=== PATIENT | female | born 1990 ===

== ENCOUNTER 2023-07-13 10:50 | Emergency (ER) | payer BC, SELFPAY ==
--- NOTE | ~2023-07-13 | XR_ITS ---
EXAMINATION: XR knee LT min 4V DATE: 07/13/2023 11:17 INDICATION: Left knee pain. TECHNIQUE: 4 views of left knee were obtained. COMPARISON: None. FINDINGS: Bone alignment is normal. No fracture. There is mild osteoarthritis of medial and lateral c ompartments characterized by tiny osteophytes. There is a small knee joint effusion. IMPRESSION: 1. Mild left knee osteoarthritis. 2. Small left knee joint effusion. Reviewed, dictated and finalized at location A. [employer]
[2023-07-13 11:03] VITALS: BP 126/86; PULSE 82; RESP 20; TEMP 36.9; O2SAT 100
--- NOTE | 2023-07-13 11:19 | ED.EXTPRO ---
HPI - Extremity Problem General Chief complaint: Extremity Problem,Nontraumatic Stated complaint: L knee pain Time Seen by Provider: 07/13/23 11:18 Source: patient Mode of arrival: ambulatory Limitations: no limitations History of Present Illness HPI Narrative: Patient is a pleasant 32 year old female without significant past medical history presents emergency department today ambulatory with a knee brace on for left knee pain. Patient states that this has been going on for a while now about 3 months that occurred initially when she was exercising and she will have episodes where her knee becomes more swollen. She states that last night her knee went backwards and she has been having increasing pain since. 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 States that it hurts to bear any weight and she cannot completely bend it or extend it due to the pain. Denies any fever chills. Denies numbness or tingling to the left lower extremity. Has been taking Tylenol and ibuprofen. has never seen ortho. Related Data Allergies Allergy/AdvReac Type Severity Reaction Status Date / Time Penicillins Allergy Unknown Anaphylaxis Verified 07/13/23 11:19 RED ONION Allergy Unknown ITCHY Uncoded 07/13/23 11:06 THROAT Review of Systems Review of Systems: CONSTITUTIONAL: Denies fever, chills GENITOURINARY: Denies dysuria or hematuria. SKIN: Denies rash or itching. MUSCULOSKELETAL: left knee pain and swelling. NEUROLOGIC: Denies numbness. All systems reviewed & are unremarkable except as noted in HPI and below PMFSH Social History Social History Smoking status: Former smoker Alcohol intake: never Exam Narrative: GENERAL: Well-appearing, well-nourished, and in no acute distress. HEAD: Normocephalic, atraumatic. CHEST: No respiratory distress. HEART: Regular rate. 2+ left posterior tibial pulse. EXTREMITIES: TTP to right knee over patella, mild swelling noted. no erythema. no signs of knee dislocation/instability.ROM intact however there is pain with ROM. No edema.no calf tenderness. negative Shu's sign. SKIN: Warm, dry, no rash. NEURO: No focal deficits. distal NV intact to LLE. Course Vital Signs Vital signs: Vital Signs Temperature 98.4 F 07/13/23 11:03 Pulse Rate 82 12/31/23 11:03 Respiratory Rate 20 07/13/23 11:03 Blood Pressure 126/86 07/13/23 11:03 Pulse Oximetry 100 07/13/23 11:03 Oxygen Delivery Room Air 07/13/23 11:03 Temperature 98.4 F 07/13/23 11:03 Pulse Rate 82 07/13/23 11:03 Respiratory Rate 20 07/13/23 11:03 Blood Pressure 126/86 07/13/23 11:03 Pulse Oximetry 100 07/13/23 11:03 Oxygen Delivery Room Air 07/13/23 11:03 MDM - Extremity (Nontraumatic) MDM Narrative Medical decision making narrative: Patient presents for left knee pain going on about 3 months since exercising and then having an episode where her knee went backwards last night has been having worsening pain since. X-ray does not show any acute fracture or instability. Small effusion noted and mild osteoarthritis. Discussed use of knee immobilizer, nonweightbearing for a few days as well as crutches and discharge diclofenac with Tylenol as well as orthopedic follow-up. No signs of distal neurovascular compromise. No swelling distal of the knee. Patient is nontoxic in appearance. Stable re-evaluation exam just before discharge. Patient in no acute distress. Vitals within normal limits. Discussed return precautions with the patient including all the red flag signs or symptoms of when to return the patient. The patient verbalized understanding and was agreeable with discharge and close follow-up Discharge Plan Discharge Clinical Impression: Acute pain of left knee, Effusion of knee joint, left Knee osteoarthritis Qualifiers: Osteoarthritis type: unspecified Laterality: left Qualified Code(s): M17.12 - Unil
== END 2023-07-13 12:11 | disposition home or self-care (01) ==
PROVIDERS: Emergency Provider Nurse Practitioner; PCP Internal Medicine
DX: M17.12 Unilateral primary osteoarthritis, left knee (principal); M25.462 Effusion, left knee
CPT/HCPCS: 73564; 99283

== ENCOUNTER 2024-09-17 18:04 | Emergency (ER) | payer BC, SELFPAY ==
--- NOTE | ~2024-09-17 | CT_ITS ---
CT brain wo con Ordering provider: Karlene Whitley APRN History: 33 years Female with . light-headed, headache . Comparison: None. Technique: CT of the head without contrast. Radiation reduction technique utilized.The dose-length product was 681 mGy-cm. FINDINGS: BRAIN PARENCHYMA AND CSF SPACES: No midline shift, mass effect or hemorrhage. The brain parenchyma a nd CSF spaces are otherwise normal. Empty sella turcica.. VISUALIZED PARANASAL SINUSES: Well aerated. Right nasal septal deviation. MASTOIDS: Well aerated. BONES: The bones appear intact. SOFT TISSUES: Visualized nasopharynx is normal. Superficial soft tissues are normal. IMPRESSION: No acute intracranial findings. Reviewed, dictated and finalized at location A. ER FISH
--- OUTSIDE RECORDS SUMMARY | 2024-09-17 18:06 | XMS_ITS | CONTINUITY OF CARE DOCUMENT ---
Author Name brenda gutierrez Address Unknown Organization [facility] Address [address] [place] [address] Phone [phone] Care Team Providers Care Stack Attendant Name Role Phone Esperanza JUAREZ, Sanju Unavailable [phone] JEWEL JUAREZ, APURVA Unavailable [phone] JEWEL JUAREZ, APURVA Unavailable PROBLEMS Condition Status Date Provider Notes Cardiovascular screening completed - Arabella Darden MD Family History of Hyperlipidemia: completed - Arabella Darden MD Family History of Hypertension: completed - Sanju Mata MD Family History of CVA or Stroke: completed - Arabella Darden MD CHEST PAIN completed - Sanju Mata MD Shortness of breath completed - Sanju Mata MD Headache completed - Sanju Mata MD Vision changes completed - Sanju Mata MD BACK PAIN completed - Sanju Mata MD Hypothyroidism active Arabella Darden MD GERD active Christiana Navarrete MD Screening active Sanju Mata MD Tobacco use quit active Sanju Mata MD Obesity active Sanju Mata MD did not want gpl1 Palpitations active Sanju Mata MD Exposure to SARS-associated coronavirus active Sanju Mata MD ENCOUNTERS Date Type Provider Location Encounter Diag nosis 5 - 5 In-person encounter Office Visit Sanju Mata MD [facility] Family History of Hypertension:CHEST PAINShortness of breathHeadacheVision changesBACK PAINScreeningTobacco use quitObesityPalpitationsExposure to SARS-associated coronavirus 7 - 8 In-person encounter Office Visit Christiana Navarrete MD [facility] GERD 2 - 2 In-person encounter Office Visit Arabella Darden MD [facility] Cardiovascular screeningFamily History of Hyperlipidemia:Family History of CVA or Stroke:Hypothyroidism VITAL SIGNS Date Observation Value Provider Body Mass Index (Ratio) 32.23 kg/m2 Dean Mata MD blood pressure, diastolic 76 mm[Hg] Li nkLogic blood pressure, systolic 110 mm[Hg] Lucy kLog oxygen saturation, oximetry 98 % Brea Kohler pulse rate 84 /min Brea Kohler weight E&M 212 [lb_av] Brea Kohler blood pressure, cuff size regular Ta [place] Kohler blood pressure, diastolic 76 mm[Hg] Ta bitmaxwell Kohler blood pressure, systolic 110 mm[Hg] Tab itha Kohler respiratory rate E&M 12 /min Brea Kohler height E&M 68 [in_i] Brea Kohler Body Mass Index (Ratio) 29.49 kg/m2 Dominique Navarrete MD blood pressure, diastolic 70 mm[Hg] Pravin Maki blood pressure, systolic 110 mm[Hg] Shruti audrey Maki respiratory rate E&M 16 /min Korina Maki pulse rate 76 /min Korina rodriguez oxygen saturation, oximetry 98 % Korina Maki weight E&M 194 [lb_av] Korina rodriguez blood pressure, cuff size regular Cy nthia Glynn height E&M 68 [in_i] Korina rodriguez temperature site temporal Arianneanibal Perry sleshaila temperature E&M 97.7 [degF] Arianne Tanks syeda Body Mass Index (Ratio) 29.19 kg/m2 Ulysses Darden MD blood pressure, diastolic 70 mm[Hg] [facility], systolic 100 mm[Hg] Timothy london [place] oxygen saturation, oximetry 99 % [facility] respiratory rate E&M 16 /min [facility] pulse rate 92 /min [facility] weight E&M 192 [lb_av] [facility] height E&M 68 [in_i] [facility] blood pressure, resting No Kill [facility] ALLERGIES Allergy Name Onset Date Reaction Criticality Status PENICILLIN G PROCAINE Low Criticalit y active HISTORY OF MEDICATION USE Medication Status Instructions Dates Provider Indications Com ments metoprolol succinate 25 mg tablet extended release 24 hr active TAKE 1 TABLET BY MOUTH EVERY DAY Sanju Mata MD Nexium 20 mg capsule,delayed release(DR/EC) completed 1 tablet once a day - Sanju Mata MD turmeric root extract 500 mg capsule completed Take 1 capsule - Sanju Mata MD selenium 200 mcg tablet completed Take 1 tablet once a day - Sanju Mata MD magnesium oxide 250 mg magnesium tablet completed Take 1 tablet once a day - Sanju Mata MD theanine 100 mg capsule completed Take 1 capsule once a day - Sanju Mata MD B COMPLEX 50 ORAL TABLET completed Take 1 tablet three times a week - Sanju Mata MD [place]-3 Fish Oil 300-1,000 mg capsule completed Take 520 mg once a day - Sanju Mata MD LEVOTHYROXINE SODIUM 75 MCG ORAL TABLET completed Take 1 tab on Friday, friday, , and Friday - Korina Maki #18, 30 days supply, Filled 08/04/2018 levothyroxine 88 mcg tablet completed Take 1 tablet three times a week - Sanju Mata MD #15, 30 days supply, Filled 08/04/2018 WP THYROID 65 MG ORAL TABLET completed Take 0.25 tablet once a day - Sanju Mata MD #60, 30 days supply, Filled 08/04/2018 clonazepam 0.5 mg tablet completed Take 1 tablet once a day as needed - Sanju Mata MD #30, 30 days supply, Filled 04/23/2018 SOCIAL HISTORY Date Observation Value Provider quit smoking, stage quit Sanju haider MD smoking status Never smoker Sanju Mata MD number of grandchildren Christiana Navarrete MD social history E&M S moking History: Lucia sal has never smoked. Christiana Navarrete MD social history reviewed E&M revi ewed - no changes required Christiana Navarrete MD smoking status Never smoker Korina azar social history E&M S moking History: Lucia sal has never smoked. Arabella Darden MD social history reviewed E&M revi ewed - no changes required Arabella Darden MD number of grandchildren Arabella Page smoking status Never smoker Rosa harrington FAMILY HISTORY Family Member Condition Mother Family History of CV A or Stroke: Maternal Grandfather Family History of C oronary Artery Disease: Maternal Grandfather Family History of H ypertension: Maternal Grandfather Family History of H yperlipidemia: Maternal Grandfather Family History of D iabetes: INSURANCE PROVIDERS Payer name Policy type / Coverage type [employer] party ID [facility] [id number] ADVANCE DIRECTIVES Name Date DISCUSSED - NO DECISION MADE TREATMENT PLAN Date Name Performer Cardiology Sanju Mata MD Cardiology Sanju Mata MD Cardiology Sanju Mata MD Cardiology Sanju Mata MD Cardiology Sanju Mata MD Cardiology:neg ihs and echo neg egfr and dd Sanju Mata MD Cardiology:Resolved. Christiana rico MD Cardiology:On replacement therap y. Christiana Navarrete MD Cardiology:Continues on Nexium. Christiana Navarrete MD Cardiology:Resolved. Christiana rico MD Cardiology:Atypical chest pain likely musculoskeletal pain. Alll relevant tests have been done. The patient has been reassured. Advised to take Tylenol for the pain. The pain due to pericarditis is unlikely. Her EKG is normal. I did offer her an echocardiogram which she declined. Christiana Navarrete MD Cardiology Arabella Darden MD Cardiology Arabella Darden MD Cardiology Arabella Darden MD Cardiology Arabella Darden MD Cardiology Arabella Darden MD Date Name Monitor - Telemetry (Mobile Cardiac) CRP, high sensitivit y Lipoprotein (a) LIPID PANEL Microalb/Creatinine Urine, Random HISTORY OF PROCEDURES Procedure Date Procedure Name Provider Procedure Notes S tatus EKG Sanju Mata MD complete d EKG Christiana Navarrete MD complet ed Event Monitor Arabella Darden MD comple basil EKG Arabella Darden MD completed
--- OUTSIDE RECORDS SUMMARY | 2024-09-17 18:06 | XMS_ITS | Data Portability ---
Author Organization [place] [facility] [employer], Main Office Address [address] [place] [address] Care Team Providers Care Distribution Lead Name Role Phone GASPER RICHEY Primary Care Provider GASPER RIHCEY Referring Provider Assessment Encounter Date Assessment Date Assessment LastModified by Organization Details LastModified Time 08/29/2023 08/29/2023 The patient has a medial meniscal tear of the left knee as described, as well as some degenerative fraying of the lateral meniscus. We talked about treatment options today in detail, we covered knee arthroscopy surgical intervention in detail, including risks and benefits, limitations and alternatives. We will set her up to see Dr. Vásquez , in the very near future for surgical intervention. The patient voiced understanding and agrees with the above plan. She will call for any further problems, difficulties, or questions and will continue with current conservative measures. [email or web address] Not available 08/29/2023 14:17:42 09/03/2023 09/03/2023 32-year-old female presents for evaluation of her left knee. She has a referral from [facility]. she reports injury in March when she had a hyperextension of the leg, and felt a snap back of her knee. She has catching and locking as well as pain with walking and activities, worse going up and down Stairs. She got an MRI, which shows a medial meniscus tear. She was referred to me for surgical discussion. Review of systems per patient questionnaire Physical exam: She is tenderness palpation of the medial joint line and also posterior medially. Range motion 0-100 and 30, with pain in terminal flexion. Positive Jemima's. Antalgic gait favoring left side. Stable ligaments. Neurovascular intact. X-rays were reviewed, demonstrating no acute bony abnormality, preserved joint space. MRI was reviewed, demonstrating a medial meniscus posterior body tear She has failed conservative management with persistent mechanical symptoms of her knee. As such, we will plan to do a knee arthroscopy and partial meniscectomy versus repair. We will prefer to find a suitable time for surgery. Risks, benefits, and alternatives were discussed with patient. Risks include, but are not limited to, pain, bleeding, blood clot, stiffness, infection, injury to nerve or vessel, poor healing, need for future surgery, and anesthesia risks. There is no guarantee of any results, and the patient's condition may fail to improve or worsen after surgery. Patient stated understanding and agreed to proceed. [email or web address] Not available 09/08/2023 00:38:47 10/01/2023 10/01/2023 32-year-old patient presents today for 1st postop follow-up after left knee arthroscopy with medial meniscectomy on 09/17/[address] Vásquez. She states she is doing very well overall. No pain. Not taking any medications for pain. She states that the discomfort she was having before surgery is now gone. Physical exam: Incisions clean dry and intact without signs and symptoms of infection. Sutures removed and Steri-Strips were placed. No issues with range of motion 0-150. No pain with palpitation around the knee. Sensation intact. She is progressing as expected. She can continue to do activities as tolerated. We will see her back in 4 weeks for recheck. She is in agreement with this plan. Not available 10/01/2023 14:27:52 11/04/2023 11/04/2023 32-year-old patient presents today for postop follow-up after left knee arthroscopy with medial meniscectomy on 09/17/[address] Vásquez. She states she is doing well overall. Not taking any medications for pain. She states that the pain and mechanical symptoms she was having before surgery are better, but she is having some pain and occasional swelling if she is on her feet all day or kneels on the knees. Physical exam: Incisions well healed. No issues with range of motion 0-150. Tenderness on medial and lateral sides around incision sites. Sensation intact. She can continue to do activities as tolerated. We discussed that the surgery was mainly done to correct mechanical symptoms, and that some pain may still be present. We recommend she keep up with PT exercises and take anti-inflammatori es as needed. We can see her back as needed if any new issues arise. She is in agreement with this plan. Not available 11/04/2023 09:08:39 Plan of Treatment Reminders Order Date Submit Date Provider Last Modified By Organization Details Last Modified Time Details Appointments None recorded. Lab vitamin D, 25-hydroxy, total, serum 2023 [facility] [email or web address] [place] [address] (Lab), [address] [place], [address], 09:01:15 lipid panel, serum 2023 [facility] [address] (Lab), [address] [place], [address], 09:01:15 TSH + free T4, serum 2023 [email or web address] [address] [place] [address] (Lab), [address] [place], [address], 09:16:49 CMP, serum or plasma 2023 [email or web address] [address] [place] [address] (Lab), [address] [place], [address], 09:01:15 CBC w/ auto diff 2023 [email or web address] [address] [place] [address] (Lab), [address] [place], [address], 09:01:15 Referral orthopedic surgeon referral 2023 [facility] [email or web address] Cr Baca MD, [address] [facility] [address], [facility], [place], [address], 4 09:17:14 obstetricia n and gynecologis t referral 2023 024 [email or web address] 6 Michelle Oseguera MD, [address], [address], [place], [address], 5 08:51:17 Procedures None recorded. Surgeries None recorded. Imaging US, thyroid - no auth required 2023 024 [email or web address] Not available 4 09:39:37 Medication Orders valacyclovi r 500 mg tablet 2023 024 [facility], [address] [facility], [place], [address], 4 12:21:58 Patient TargetsNo targets recorded. Patient InstructionsNo instructions recorded. Reason for Referral [facility] Referral for Gynecologic examination Referring Physician: Gasper Richey, Internal Medicine, Encounter Date: 12/16/2023 Orthopedic Surgeon Referral for Pain of left knee joint Referring Physician: Gasper Richey, Internal Medicine, Encounter Date: 12/16/2023 Results Created Date Observation Date Name Description Value Unit Range Abnormal Flag Note LastModifiedBy Organization Detail LastModifiedTime 08/22/19 24 08/22/2023 MRI, knee, w/o contr ast [facility] [address] [place] [address] Patien t Name: MARK LINDA Access ion #: [id number] Sex: F : 1990 9 Dictat ed By: Je Louis ms Attend ing Physic marquez: HAWK SWANSON Orderi Physic marquez: [facility]WK [facility] Exam Date: 2023 07:59 AM Exam Name: MRI KNEE LT WO Admitt ing Diagno sis(es ): CLINIC AL INDICA TION: Left knee pain TECHNI QUE: Multip lanar, multis equenc e MRI of the left knee was perfor med withou t contra st. Contra st: None COMPAR TRAMAINE: Radiog raph of the left knee dated 2022 FINDIN GS: Joint space and synovi um: There is small suprap atella r joint effusi on. No Shirley' s cyst or synovi al thicke rey. Bones and articu lar cartil age: Small focus of subcho ndral bone marrow edema in the medial femora l condyl e. No fractu re. The alignm ent is normal . The articu lar cartil age is preser bartolome. Menisc i: There is a tear at the free edge of the medial menisc us. Intras ubstan ce signal hyperi ntensi ty is noted at the juncti on of the body and director data ior horn of the latera l menisc us. Tendon s and ligame nts: The tendon s in the knee are intact . The extens or mechan ism is intact . The anteri or and director data ior crucia te ligame nts are intact . The medial collat eral ligame nt and the latera l collat eral ligame nt stabil izing comple x are intact . Muscle s: Region al muscle s are preser bartolome in bulk and signal charac terist ics. IMPRES LUANN: 1. Tear at the free edge of the medial menisc us. Page 1 [facility] [address] [address] Patien t Name: LINDA CARRASQUILLO Access ion #: [id number] Sex: F : 1990 9 Dictat ed By: Je Louis ms Attend ing Physic marquez: KIKI ARECHGIA Orderi ng Physic marquez: [facility] Exam Date: 2023 07:59 AM Exam Name: MRI KNEE LT WO Admitt ing Diagno sis(es ): 2. Mild subcho ndral bone marrow edema in the centra l weight bearin g medial femora l condyl e. No high-g rade articu lar cartil age loss. 3. Intras ubstan ce degene ration /frayi ng at the juncti on of the director data ior horn and body of the latera l menisc us. Electr onical ly Signed by: Je Louis ms at 2023 09:28: 41 AM Page [email or web address] [facility] (Imaging) [address] [place], [address], 08/22/2023 11:20:24 08/22/19 24 08/22/2023 imagi ng/di agnos tic resul t No observ ation record ed. [facility] [address] [place], [address], 08/22/2023 10:32:13 03/08/20 24 03/08/2024 XR, chest , 1 view No observ ation record ed. [email or web address] [facility] [address] [place], [address], 03/10/2024 12:33:59 03/09/20 24 03/08/2024 CT, cervi nory spine , w/o contr ast No observ ation record ed. [email or web address] [facility] [address] [place], [address], 03/10/2024 12:34:18 Result Notes None recorded. Problems Name Problem SNOMED Code Status Onset Date Resolution Date Notes Provider Name and Address Organization Details Recorded Time Chronic back pain 674000984 Active Not Available [facility] 4 08:52:38 Acute sinusitis 57908456 Active 2021 Not Available [facility] 4 08:52:38 Pain in throat 257817402 Active 2021 Not Available [facility] 4 08:52:38 Thyroid nodule 803362348 Active 2021 Not Available [facility] 4 08:52:38 Low back pain 602655512 Active Not Available [facility] 4 08:52:38 Pain in left knee Active 2017 Not Available [facility] 4 08:52:38 Impaired fasting glycemia 748467133 Active 2021 Not Available [facility] 4 08:52:38 Hypothyroi dism 76320827 Active 2019 Not Available [facility] 4 08:52:38 Nausea 307188245 Active Not Available [facility] 4 08:52:38 Viral syndrome 886547904 Active 2021 Not Available [facility] 4 08:52:38 Herpes zoster 3079961 Active Not Available [facility] 4 08:52:38 Anxiety 03927712 Active Not Available [facility] 4 08:52:38 Candidiasi s of vagina 62664248 Active 2021 Not Available [facility] 4 08:52:38 Weight gain 2674847 Active 2021 Not Available [facility] 4 08:52:38 Vaginitis 03846681 Active 2022 Not Available [facility] 4 08:52:38 Liver enzymes level above reference range 602826326 Active 2022 Not Available [facility] 4 08:52:38 Gastroesop hageal reflux disease without esophagiti s 438000483 Active 2022 Not Available [facility] 4 08:52:38 Generalize d anxiety disorder 25783519 Active 2022 Not Available [facility] 4 08:52:38 Migraine 56832057 Active 2022 Not Available [facility] 4 08:52:38 Vitamin D deficiency 53857090 Active 2022 Not Available [facility] 4 08:52:38 Toothache 49008716 Active 2022 Not Available [facility] 4 08:52:38 Pain of left knee joint 1217975582737 07 Active 2023 Not Available [facility] 4 08:52:38 Pain of right knee joint 1919403969665 00 Active 2023 Not Available [facility] 4 08:52:38 Derangemen t of left knee 0442854903984 9108 Active 2023 Not Available [facility] 4 08:52:38 Tear of meniscus of knee 289590346 Active 2023 FILI Peguero [address] [facility], [facility] [address], [place], [address] , [facility] [employer] [facility] 4 14:17:47 Tear of medial meniscus of knee 367026077 Active 2023 Bear Vásquez MD [address] [facility], [facility] [address], [place], [address] , [facility] [employer] [facility] 4 00:39:20 Upper respirator y infection 26539247 Active 2023 Nadine Lee MA null, [facility] [employer] [facility] 4 14:54:31 Candidiasi s of mouth 05257393 Active 2023 Nadine Lee MA null, [employer] [facility] [employer] [facility] 4 14:45:41 Herpes labialis 0030547 Active 2023 Gasper portillo MD [address] [facility], [facility] [address], [place], [address] , [facility] [employer] [facility] 4 12:17:39 Infection of tooth 640124923 Active 2024 Jeana Davis CMA null, [facility] [employer] [facility] 5 17:11:46 Problem Notes None recorded. Procedures Surgical History Date Name Laterality Status Provider Name and Address Organization Details Recorded Time Knee arthroscopy /surgery completed WALLACE Trejo [facility] [employer] [facility] 12/16/2023 11:29:13 Imaging Results Imaging Date Name Status LastModified by [facility] Details LastModified Time 08/22/2023 MRI, knee, w/o contrast completed [address] (Imaging) [address] [place], [address], 08/22/2023 11:20:24 08/22/2023 imaging/diagn ostic result active [facility] [address] [place], [address], 08/22/2023 10:32:13 03/08/2024 XR, chest, [email or web address] [facility] [address] [place], [address], 03/10/2024 12:33:59 03/08/2024 CT, cervical spine, w/o contrast active [email or web address] [facility] [address] [place], [address], 03/10/2024 12:34:18 Procedure Notes None recorded. Medical Equipment None Reported. Allergies Allergen ID Allergen Name Allergen Category Reaction Reaction Severity Criticality Documentation Date Start Date Code Code System Note Provider Name and Address Organization Details Recorded Time 4855 Product containin g penicilli n (product) medicatio n anaphylax is Not available Not available 09/11/2022 23482 8001 SNOMED Not Available [facility] 03:04:07 Medications Name Sig Start Date Stop Date Status Note LastModified by Organization Details LastModified Time compounded medication Swish and spit 3-4 times a day for 5 days 12/15 completed Not Available Not Available Not Available compounded medication Swish and spit 3-4 times a day for 5 days 12/15 completed Not Available Not Available Not Available cyclobenzap rine 10 mg tablet 05/22 completed Not Available Not Available Not Available methocarbam ol 500 mg tablet active Not Available Not Available Not Available doxycycline hyclate 100 mg capsule Take 1 capsule twice a day by oral route. active Not Available Not Available No t Available clindamycin HCl 300 mg capsule 10/13 completed Not Available Not Available Not Available azithromyci n 250 mg tablet TAKE 2 TABLETS BY MOUTH ON DAY 1, AND THEN TAKE 1 TABLET BY MOUTH ONCE A DAY ON DAY 2 THROUGH DAY 5 10/27 completed Not Available Not Available Not Available ibuprofen 800 mg tablet active Not Available Not Available Not Available fluconazole 150 mg tablet Take 1 tablet every day by oral route as needed for 1 day. active Not Available Not Available No t Available valacyclovi r 1 gram tablet TAKE 2 TABLETS BY MOUTH EVERY 12 HOURS FOR 1 DAY 11/19 completed Not Available Not Available Not Available sumatriptan 100 mg tablet 05/27 completed Not Available Not Available Not Available hydrocodone 5 mg-acetamin ophen 325 mg tablet TAKE 1 TABLET BY MOUTH EVERY 8 HOURS NEEDED 12/15 completed Not Available Not Available Not Available Claritin 10 mg tablet Take 1 tablet every day by oral route. 08/04 completed Not Available Not Available Not Available meloxicam 15 mg tablet TAKE 1 TABLET BY MOUTH ONCE DAILY active Not Available Not Available No t Available Medrol (Saw) 4 mg tablets in a dose pack Take 1 dose pk by oral route as directed. 09/13 completed Not Available Not Available Not Available bupivacaine HCl 0.5 % (5 mg/mL) injection solution Take 20 mg by injection route. 10/27 completed Not Available Not Available Not Available prednisone 20 mg tablet TAKE 1 TABLET BY MOUTH TWICE DAILY 07/25 completed Not Available Not Available Not Available clonazepam 0.5 mg tablet prn 06/28 completed Not Available Not Available Not Available phentermine 15 mg capsule Take 1 capsule twice a day by oral route for 30 days. 11/19 completed Not Available Not Available Not Available clindamycin HCl 150 mg capsule 05/22 completed Not Available Not Available Not Available topiramate 25 mg tablet 05/27 completed Not Available Not Available Not Available acetaminoph en 300 mg-codeine 30 mg tablet 05/22 completed Not Available Not Available Not Available valacyclovi r 500 mg tablet TAKE 1 TABLET BY MOUTH TWICE DAILY FOR 3 DAYS active Not Available Not Available No t Available sulfamethox azole 800 mg-trimetho prim 160 mg tablet Take 1 tablet every 12 hours by oral route. 01/08 completed Not Available Not Available Not Available tramadol 50 mg tablet TAKE 1 TABLET BY MOUTH ONCE DAILY NEEDED 07/25 completed Not Available Not Available Not Available triamcinolo ne acetonide 0.1 % topical cream 12/02 completed Not Available Not Available Not Available butalbital- acetaminoph en-caffeine 50 mg-325 mg-40 mg tablet 05/27 completed Not Available Not Available Not Available acyclovir 800 mg tablet Take 1 tablet 5 times a day by oral route for 7 days. active Not Available Not Available No t Available selenium 200 mcg tablet Take by oral route. 06/30 completed Not Available Not Available Not Available ketorolac 10 mg tablet 10/13 completed Not Available Not Available Not Available propranolol 10 mg tablet TAKE 1 TABLET BY MOUTH TWICE DAILY active Not Available Not Available No t Available Deep Sea Nasal 0.65 % spray aerosol 12/02 completed Not Available Not Available Not Available famotidine 20 mg tablet 05/22 completed Not Available Not Available Not Available amitriptyli ne 25 mg tablet Take 1 tablet every day by oral route as directed for 30 days. 01/08 completed Not Available Not Available Not Available Kenalog 10 mg/mL suspension for injection Take 20 mg by injection route. 10/27 completed [facility] [place]: [phone] Not Available Not Available Not Available dexamethaso ne 1 mg tablet TAKE ONE TABLET BY MOUTH AT 10PM NIGHT BEFORE 8AM CORTISOL 1 DAYS active Not Available Not Available No t Available benzonatate 100 mg capsule TAKE 1 CAPSULE BY MOUTH EVERY 8 HOURS NEEDED FOR COUGH AND CONGESTIO N 05/27 completed Not Available Not Available Not Available hydrocodone 7.5 mg-acetamin ophen 325 mg tablet 10/23 completed Not Available Not Available Not Available cephalexin 500 mg capsule 10/23 completed Not Available Not Available Not Available Euthyrox 88 mcg tablet Take 1 tablet 3 times a week by oral route. 11/19 completed Not Available Not Available Not Available Unithroid 50 mcg tablet TAKE 1 TABLET BY MOUTH ONCE DAILY active Not Available Not Available No t Available Synthroid 75 mcg tablet Take 1 tablet every day by oral route in the morning for 30 days. active Not Available Not Available No t Available Unithroid 100 mcg tablet TAKE 1 TABLET BY MOUTH ONCE DAILY active Not Available Not Available No t Available sertraline 25 mg tablet Take 1 tablet every day by oral route in the morning for 30 days. 01/25 completed Not Available Not Available Not Available magnesium 250 mg tablet Take by oral route. 06/30 completed Not Available Not Available Not Available diclofenac sodium 50 mg tablet,héctro yed release TAKE 1 TABLET BY MOUTH THREE TIMES DAILY NEEDED 07/25 completed Not Available Not Available Not Available levofloxaci n 750 mg tablet TAKE 1 TABLET BY MOUTH ONCE DAILY 11/19 completed Not Available Not Available Not Available norethindro ne (contracept deepa) 0.35 mg tablet active Not Available Not Available No t Available ondansetron 4 mg disintegrat ing tablet 10/13 completed Not Available Not Available Not Available esomeprazol e magnesium 20 mg capsule,del ayed release TAKE ONE CAPSULE BY MOUTH DAILY NEEDED 03/22 completed Not Available Not Available Not Available azithromyci n 500 mg tablet 12/02 completed Not Available Not Available Not Available escitalopra m 5 mg tablet TAKE 1 TABLET BY MOUTH ONCE DAILY FOR 30 DAYS active Not Available Not Available No t Available Previfem 0.25 mg-35 mcg tablet active Not Available Not Available N ot Available nitrofurant oin monohydrate /macrocryst als 100 mg capsule 12/02 completed Not Available Not Available Not Available duloxetine 30 mg capsule,del ayed release qd 01/20 completed Not Available Not Available Not Available magnesium 05/27 completed Not Available Not Available Not Available vitamin E once a day 06/30 completed Not Available Not Available Not Available vitamin B complex 03/11 completed Not Available Not Available Not Available Tylenol Take one 500 mg tablet as needed 06/30 completed Not Available Not Available Not Available Tirosint 75 mcg capsule Take one tablet every other night 10/13 completed Not Available Not Available Not Available Tirosint 100 mcg capsule TAKE 1 CAPSULE BY MOUTH ONCE DAILY IN THE MORNING 07/25 completed Not Available Not Available Not Available Tirosint 88 mcg capsule TAKE ONE CAPSULE BY MOUTH EVERY OTHER DAY AT BEDTIME 10/13 completed Not Available Not Available Not Available B12 02/10 completed Not Available Not Available Not Available Flintstones Multi-Vitam ins Gummies 100 mcg chewable tablet Take 1 tablet every day by oral route as directed. 01/20 completed Not Available Not Available Not Available WP Thyroid 65 mg tablet take 1/4 tablet in the morning and 1/4 tablet in the afternoon active Not Available Not Available No t Available WP Thyroid 16.25 mg tablet Take one tablet by mouth one hour before you eat or drink coffee ot any other medicatio n. May take with water 05/27 completed Not Available Not Available Not Available Flonase Allergy Relief 50 mcg/actuati on nasal spray,suspe nsion 1 spray each nostril daily 08/04 completed Not Available Not Available Not Available Vitamin B12 Take one tablet daily 05/27 completed Not Available Not Available Not Available Trintellix 10 mg tablet 05/27 completed Not Available Not Available Not Available Fish Oil 1,000 mg (120 mg-180 mg) capsule Take by oral route. 06/30 completed Not Available Not Available Not Available Vitals Date Recorded Body height Body mass index (BMI) Body weight Provider Name and Address Organization Details Last Updated DateTime 08/29/2023 172.72 cm 30.4 kg/m2 64615.47 g Geovanna Pittman CNA [facility] 08/29/2023 10:24:59 Date Recorded Body height Body mass index (BMI) Body weight Provider Name and Address Organization Details Last Updated DateTime 09/03/2023 172.72 cm 30.4 kg/m2 75190.47 g ALLIE Joseph for; to (do) [facility] [employer] 09/03/2023 14:51:10 Date Recorded Body height Body mass index (BMI) Body weight Provider Name and Address Organization Details Last Updated DateTime 10/01/2023 172.72 cm 30.4 kg/m2 78519.47 g Precious Bauer [facility] [employer] 10/01/2023 14:09:03 Date Recorded Body height Body mass index (BMI) Body weight Pain severity - 0-10 verbal numeric rating [Score] - Reported Provider Name and Address Organization Details Last Updated DateTime 11/04/2023 172.72 cm 30.4 kg/m2 97764.47 g 3 Precious Bauer [facility] [employer] 11/04/2023 08:41:08 Date Recorded Body height Body mass index (BMI) Body weight Body temperature Heart rate Systolic blood pressure Diastolic blood pressure Provider Name and Address Organization Details Last Updated DateTime 172.72 cm 31.6 kg/m2 11116.2 1 g 97.6 [degF] 78 /min 110 mm[Hg] 68 mm[Hg] Sarah Lopez [facility] for; to (do) [facility] [employer] 11:30:40 Social History Question Answer Notes LastModified by Organization Details LastModified Time Tobacco Smoking Status Former Smoker quit 08/31/2014 Not Available [facility] 09/11/2022 02:46:21 Do You Have An Advance Directive? No Information not available 11/19/2022 What Is Your Level Of Alcohol Consumption? None MIGRATION.0301 [id number] Information not available 09/11/2022 What Is Your Level Of Caffeine Consumption? Moderate MIGRATION.0301 [id number] Information not available 09/11/2022 How Much Tobacco Do You Chew? None MIGRATION.0301 307015 Information not available 09/11/2022 In The 14 Days Before Symptom Onset, Have You Had Close Contact With A Laboratory-confi rmed COVID-19 While That Case Was Ill? No MIGRATION.030 [id number] Information not available 09/11/2022 In The 14 Days Before Symptom Onset, Have You Had Close Contact With A Person Who Is Under Investigation For COVID-19 While That Person Was Ill? No MIGRATION.0301 [id number] Information not available 09/11/2022 Are You Currently Employed? No Information not available 11/19/2022 What Type Of Diet Are You Following? REGULAR MIGRATION.0301 [id number] Information not available 09/11/2022 Which Illicit Or Recreational Drugs Have You Used? None MIGRATION.0301 487324 Information not available 09/11/2022 What Is The Highest Grade Or Level Of School You Have Completed Or The Highest Degree You Have Received? 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 No Information not available 11/19/2022 What Is The Fluoride Status Of Your Home? Unknown Information not available 11/19/2022 When Did You Quit Smoking? 6-10yearssincelast cigarette Information not available 12/16/2023 Are There Any Guns Present In Your Home? No Information not available 11/19/2022 Where Do You Live? SingleLevelHouse Information not available 11/19/2022 Do You Have A Medical Power Of Open End Spinning Operator? No Information not available 11/19/2022 What Was The Date Of Your Most Recent Tobacco Screening? 12/16/2023 Information not available 12/16/2023 Do You Have Any Pets? Yes Information not available 11/19/2022 What Is Your Relationship Status? MIGRATION.0301 [id number] Information not available 09/11/2022 Do You Have Smoke And Carbon Monoxide Detectors In Your Home? Yes Information not available 11/19/2022 At What Age Did You Start Smoking Tobacco? 12 MIGRATION.0301 [id number] Information not available 09/11/2022 Are You Passively Exposed To Smoke? Yes Information not available 11/19/2022 Are There Any Smokers In Your House? Yes Nusband But Smokes Outside dneedlower bucks Information not available 11/19/2022 How Much Tobacco Do You Smoke? No Was 1ppd dneedlower bucks Information not available 11/19/2022 Do You Feel Stressed (tense, Restless, Nervous, Or Anxious, Or Unable To Sleep At Night)? [id number] dneedlower bucks Information not available 11/19/2022 Do You Use Any Illicit Or Recreational Drugs? No MIGRATION.0301 626135 Information not available 09/11/2022 Have You Recently Traveled Abroad? No MIGRATION.0301 575810 Information not available 09/11/2022 Do You Or Have You Ever Used Any Other Forms Of Tobacco Or Nicotine? No Information not available 11/19/2022 Sex: Female Functional Status Question Answer Note LastModified by Organizat ion Details LastModified Time What is your exercise level? Moderate [id number] Information not available 09/11/2022 Mental Status None recorded. Family History Relationship Description Onset Age of this Age Resolved Age Notes LastModified by Organization Details LastModified Time Father Malignant tumor of lung MIGRATION.901 [id number] Not available 09/11/2022 02:48:35 Mother Schizophreni a MIGRATION.896 [id number] Not available 09/11/2022 02:48:35 Mother Chronic obstructive pulmonary disease MIGRATION.251 8586999 Not available 09/11/2022 02:48:35 Mother Pulmonary emphysema MIGRATION.323 [id number] Not available 09/11/2022 02:48:35 Mother Blood coagulation disorder MIGRATION.185 0708042 Not available 09/11/2022 02:48:35 Maternal Grandfather Type 2 diabetes mellitus MIGRATION.617 [id number] Not available 09/11/2022 02:48:35 Maternal Grandfather Hypertensive disorder MIGRATION.594 [id number] Not available 09/11/2022 02:48:35 Maternal Grandfather Malignant tumor of colon MIGRATION.655 1133833 Not available 09/11/2022 02:48:35 Maternal Grandfather Congestive heart failure MIGRATION.814 [id number] Not available 09/11/2022 02:48:35 Maternal Grandfather Family history of malignant neoplasm MIGRATION.815 [id number] Not available 09/11/2022 02:48:35 Maternal Grandfather Kidney finding MIGRATION.650 0819927 Not available 09/11/2022 02:48:35 Maternal Grandfather Arthritis MIGRATION.601 3900864 Not available 09/11/2022 02:48:35 Maternal Grandfather Heart disease MIGRATION.875 1463598 Not available 09/11/2022 02:48:35 Maternal Grandfather MIGRATION.385 [id number] Not available 09/11/2022 02:48:35 Maternal Grandmother Type 2 diabetes mellitus MIGRATION.261 [id number] Not available 09/11/2022 02:48:35 Maternal Grandmother Hypertensive disorder MIGRATION.125 [id number] Not available 09/11/2022 02:48:35 Maternal Grandmother Family history of malignant neoplasm MIGRATION.133 [id number] Not available 09/11/2022 02:48:35 Maternal Grandmother Ulcer MIGRATION.149 [id number] Not available 09/11/2022 02:48:36 Maternal Grandmother Arthritis MIGRATION.783 [id number] Not available 09/11/2022 02:48:36 Paternal Grandfather Type 2 diabetes mellitus MIGRATION.980 [id number] Not available 09/11/2022 02:48:36 Paternal Grandfather MIGRATION.505 [id number] Not available 09/11/2022 02:48:36 Paternal Grandfather Alzheimer's disease MIGRATION.202 0247954 Not available 09/11/2022 02:48:36 Paternal Grandmother Type 2 diabetes mellitus MIGRATION.053 [id number] Not available 09/11/2022 02:48:36 Sister Fibromyalgia MIGRATION.0 30 [id number] Not available 09/11/2022 02:48:36 Medical History Condition Response ARTHRITIS Y HEADACHES/MIGRAINES Y OBESITY HYPOTHYROIDISM Y Gynecological HistoryNo gynecological history recorded. Obstetrics History GPAL:G 0 P 0 0 0 0 Past Encounters Encounter ID Performer Location Encounter Start Date Encounter Closed Date Diagnosis/Indication Diagnosis SNOMED-CT Code Diagnosis ICD10 Code Diagnosis Note [id number] [facility] [address] [place] [address] Ave[address] [address] 09/13/2020 00:00:00 09/13/2020 18:08:25 [id number] [facility] [address] [place] [address] Ave[address] [address] 03/22/2021 00:00:00 03/22/2021 18:02:26 [id number] [facility] [place] [facility] [address] [place] [address] 03/30/2021 00:00:00 03/30/2021 14:56:00 [id number] [facility] [place] [address] [place] [address] 01/11/2022 00:00:00 01/11/2022 18:37:21 [id number] Gasper portillo MD [facility] [address] [place], [place] [address]e., [address] [address] 11/19/2022 15:46:22 11/19/2022 16:24:24 Screening - NAD 156952303 Z13.9 Does not do flu shotUTD on Tdap 2 years ago Get COVID 19 vaccine, she states that she will not get this as her body can 'fight any virus off , claims that this is just like the flu virus, advised on the COVID 19 symptoms and to follow all CDC guidelines PAP: Dr Francis referred 03/22/2021 , referred 11/19/2022 RTC in 6 monthswith labsER if worseshe did verbalize her understand ing of the above Hypothyroidism 44644235 E03.9 OV 03/22/2021 :US thyroid 03/08/2021 , reluctant to get any ENT referralCa n repeat the US thyroid in [address] Jackson, next apt 03/30/2021 On synthroid 88mcgs daily OV 11/19/2022 :On tirosint 100mcgs daily, get labs, given by Dr Jackson Gastroesop hageal reflux disease without esophagitis 944208271 K21.9 Feels some bloatingCa n do OTC PPI and fiberIf not better may need EGD OV 11/19/2022 : Does well now, no complaints Generalize d anxiety disorder 66524155 F41.1 Has seen Arnel Glover NPNot suicidal or homicidal She is not on any medsShe states that she is doing very well now, is coping with reading books Migraine 63823458 G43.90 9 Get with neurology, and she is to schedule this again OV 10/23/17:S he did see Dr Luis, and she will contact his office in one month OV 06/10/18:D oing well at this timeSees Dr Luis OV 10/13/18:D oing well at this time OV 11/04/18:D id see Dr Chong doing well today Addendum: 01/11/19:D tami Ga 12/08/18 neurology, is to get on topamax, may need botox, as for CTS was planning to see Dr Pruitt the back pain specialist Dr Ga 12/06/18: EMG done ? mild median nerve neuropathy L>R, no sensory neuropathy , or radiculopa thy, clinic co relation is recommende d OV 05/27/19:I s doing well at this time OV 01/26/2020 ;Was to be on the topamax and see neurology, topiramate and see if this will helpRefer back to the neurologis t OV 09/13/2020 :Not seeing the neurologis tNo more headaches, feels that her headaches are stress related OV 03/22/2021 :Does well now 11/19/2022 :Is doing well Long-term drug therapy 007506766 Z79.899 Vitamin D deficiency 347 25486 E55.9 Gynecologi c examination 84708113 Z01.324 [id number] FILI Peguero [facility] [address] [place] [address] 07/25/2023 11:08:06 07/25/2023 12:07:33 Pain of left knee joint 5782755280 43724 M25.562 Derangemen t of left knee 7866656286 8395955 M23.92 [id number] FILI Peguero [facility] [place] [facility] [address] [place] [address] 08/29/2023 10:16:03 08/29/2023 10:39:35 Derangement of left knee 4599518325 1528319 M23.92 Pain in left knee 094401 6743 62533 M25.562 Tear of me niscus of knee 722603375 S83.242D [id number] Bear Vásquez MD [facility] [place] [address] [place] [address] 09/03/2023 14:42:07 09/03/2023 16:08:29 Pain of left knee joint 0510465165 45056 M25.562 Tear of me dial meniscus of knee 355091681 S83.242A [id number] Breanna Castellanos NP [facility] [place] [address] [place] [address] 10/01/2023 13:58:23 10/01/2023 14:26:19 Derangement of left knee 9756961974 9626187 M23.92 [id number] Breanna Castellanos NP [facility] [place] [address] [place] [address] 11/04/2023 08:39:02 11/04/2023 09:04:07 Pain of left knee joint 0205560380 56237 M25.209 [id number] Gasper portillo MD [facility] [address] [place] [address] 12/16/2023 11:19:47 12/16/2023 12:07:16 Screening - NAD 069969744 Z13.9 Does not do flu shotUTD on Tdap 2 years ago Get COVID 19 vaccine, she states that she will not get this as her body can 'fight any virus off , claims that this is just like the flu virus, advised on the COVID 19 symptoms and to follow all CDC guidelines PAP: Dr Francis referred 03/22/2021 , referred 11/19/2022 , 12/16/2023 RTC in 6 monthswith labsER if worseshe did verbalize her understand ing of the above Hypothyroidism 30258139 E03.9 OV 03/22/2021 :US thyroid 03/08/2021 , reluctant to get any ENT referralCa n repeat the US thyroid in [address] Jackson, next apt 03/30/2021 On synthroid 88mcgs daily OV 11/19/2022 :On tirosint 100mcgs daily, get labs, given by Dr Jackson OV 12/16/2023 : Not on any meds, get labs Gastroesop hageal reflux disease without esophagitis 846507684 K21.9 Feels some bloatingCa n do OTC PPI and fiberIf not better may need EGD OV 11/19/2022 : Does well now, no complaints Generalize d anxiety disorder 40605939 F41.1 Has seen Arnel Glover NPNot suicidal or homicidal She is not on any medsShe states that she is doing very well now, is coping with reading books Migraine 37511549 G43.90 9 Get with neurology, and she is to schedule this again OV 10/23/17:S he did see Dr Luis, and she will contact his office in one month OV 06/10/18:D oing well at this timeSees Dr Luis OV 10/13/18:D oing well at this time OV 11/04/18:D id see Dr Chong doing well today Addendum: 01/11/19:D r Sury 12/08/18 neurology, is to get on topamax, may need botox, as for CTS was planning to see Dr Pruitt the back pain specialist Dr Ga 12/06/18: EMG done ? mild median nerve neuropathy L>R, no sensory neuropathy , or radiculopa thy, clinic co relation is recommende d OV 05/27/19:I s doing well at this time OV 01/26/2020 ;Was to be on the topamax and see neurology, topiramate and see if this will helpRefer back to the neurologis t OV 09/13/2020 :Not seeing the neurologis tNo more headaches, feels that her headaches are stress related OV 03/22/2021 :Does well now OV 11/19/2022 :Is doing well OV 12/16/2023 : Does well not on any meds Vitamin D deficiency 347 34786 E55.9 Gynecologi c examination 05578842 Z01.419 Pain of le ft knee joint 0430237962 61307 M25.562 S/p surgery Dr Vásquez 09/18/2023 , last ortho visit 11/04/2023 , wants a second opinion as she still has some L knee pain, will refer to Dr Baca Cholesterol screening 27 2381425 Z13.220 Get labs Herpes labialis 9325711 B00.1 No symptoms, wants a refill on the valacyclov ir renew 12/16/2023 Health Concerns Section Related Observation LastModified by Organization Detai ls LastModified Time None Recorded Concern Status LastModified by Organization Details LastModified Time None Recorded Advance Directives Directive N: Payers Encounter Date Sequence Insurance Name Policy Number Policy Prather Covered Member ID Prather Member ID Guarantor Name 08/29/2023 1 [place] [facility] [facility] (MEDICAID REPLACEMENT - HMO) [id number] Linda Carrasquillo [id number] Linda Carrasquillo 09/03/2023 1 [place] [facility] (MEDICAID REPLACEMENT - [place]MO) [id number] Linda Carrasquillo [id number] Linda Carrasquillo 10/01/2023 1 [place] [facility] (MEDICAID REPLACEMENT - HMO) [id number] Linda Carrasquillo [id number] Linda Carrasquillo 11/04/2023 1 [place] [facility] (MEDICAID REPLACEMENT - HMO) [id number] Linda Carrasquillo [id number] Linda Carrasquillo 12/16/2023 1 [place] [facility] (MEDICAID REPLACEMENT - HMO) [id number] Linda Carrasquillo [id number] Linda Carrasquillo Notes Date Note Type Note Provider Name and Address Organization Details Recorded Time 08/29/2023 text/html The patient retu rns for her MRI, scan results of her left knee. She has been dealing with left knee pain since she felt a pop of the knee while exercising at first she thought maybe she just strained the knee. However, her pain has been persistent for many months now. X-rays were negative except for some mild lateral patellar tilt. She try to course of oral steroids activity modification and has been on crutches chronically. Nothing seems to help her pain. Shot of Cortizone also did not give her much relief six weeks ago. And MRI scan was then performed, this shows what appears to be a significant tear at the free edge of the medial meniscus of the left knee as well as an intrasubstance degenerative tear at the junction of the posterior horn and body of the lateral meniscus. Today I discussed this and reviewed the MRI scan in detail with Dr. Baca, and also with the patient and I agree with the above findings. Recommendation has been made for knee arthroscopy as the patient continues to have pain that limits her daily activities, occasional swelling, and mechanical symptoms. FILI Peguero [address] [facility], [address], [place], [address], [place] [facility] [employer] 08/29/2023 14:18:09 12/16/2023 text/html OV 12/02/16Here to establish carePrior PMD Dr. Underwood Hx:Her past social, surgical and family history were reviewed.No other complaint today and she is mainly here as she may have had a spider bite to her thigh.She does state that she is .She has been to the ER 3 times and was told to apply benzocaine, but no antibiotics were given.She still has some redness and pain.OV 06/12/17:Here to discuss her labs, otherwise she is doing well, but she feels that her anxiety has worsened, she has actual panic attacks and wakes her upOV :Here as she would like to go over her thyroid tests that she has had doneShe feels that she feels tired and also wants to check her Vit D levelsOV 10/23/17:Here for her follow upShe feels that she may have a UTI since 2 daysNo pain just excessive urinationNo blood in urineFeels flushedNo N/V or diarrheaNO LBPShe did do the labs and is here to review these, done in 09/02/17OV 01/20/18ACV:Here with concerns for shinglesShe denies any fevers or chillsNo N/VNo pain, feels a burning sensation on the R faceAlso has LBPs/p MRI in 2011, and was told has had 'bulging discsNo N/T or weakness in the UE or LENo loss of bowel or bladderOV 01/26/18:ACV:Here with L knee pain, she has had this since 2 days since she went 'jogging on the treadmill'States that she always has had knee pain since her childhood as she was in soccerFeels that they do 'give way'+ve swelling on the 'inner side' of the kneeOV 03/11/18:Here for her routine apt, she states that she did see endocrine Dr Jackson and had labs done by that officeShe feels that she is doing well at this timeOV 06/10/18:Here for her routine aptShe states that she is doing well at this timeHer last labs were on 04/07/18he would like to get an opinion with another endocrine MDShe is also seeing pain management OV 07/01/18:ACV:Rash since a weekNoted on the face and her earsShe states that she was stressed and used a face wash and feels that this caused the rashItchy and feels dryNo other constitutional symptoms, no runny nose or eye tearingNo wheezing no chest pain or SOB or presyncpe or syncopeNo palpitationsOV 10/13/18:Here for her apt s/p ER visitShe did have the [facility] and is doing well at this timeOV 11/04/18:Here for her routine aptShe states that she did have labs on 10/29/18She feels that she does have some stress, and has noted some mid chest pain and goes to the L shoulder bladeShe has gotten some migrainesNo SOB, syncope, some presyncopeThe pain lasts for 48 to 72 hours, does have some palpitationsOV 05/27/19:Here for her routine aptShe did see Dr Wilson last labs were in 03/21/19OV 01/26/2020:Here for her routine apt and ACV for a rashShe c/o rash since about a week on the R cheek very itchy, no exposure to any antigens, such as plants or detergents etcShjerald also is having anxiety attacks, her heart beats fast, bursts out crying, and feels 'panicky'No suicidal or homicidal ideation or attemptsNo sleep or eating disordersNo hallucinations or delusionsStates that she has seen Arnel Glover NP and she is on klonipin and also used to take trintellix but stopped as this caused nauseaOV 09/13/2020:Here for her routine aptShe did see Dr Jackson, and had labs but not done recentlyShjerald is doing well OV 03/22/2021:Here for her routine aptShe is doing very wellIs adamant that she does not want to get the COVID 19 vaccine, she states that no one in her family has had the vaccine for COVID 19Shjerald has done her US thyroid OV 11/19/2022: Here for her f/u apt, not seen since 04/03, does well, needs to do labs OV 12/16/2023: Here for her f/u apt, she is doing very well today, no recent labs Gasper Richey MD [address], [address], [place], [address], [place] [facility] 12/16/2023 17:24:45 OBGyn Episode No OBEpisode recorded.
--- OUTSIDE RECORDS SUMMARY | 2024-09-17 18:06 | XMS_ITS | Referral Summary ---
Author Organization [facility] [employer] Address [address] [place] [address] Care Team Providers Care Dockmaster Name Role Phone Gasper Richey MD Primary Care Provider Source Comments [facility] [employer],non-owned Affiliates and Associated Physician Practices is amultiple site organization consisting of ambulatory clinics and hospital sitesin [place], [place], [place] and [place]. This disclosure is being madepursuant to the Care Everywhere program and may not contain all information available regarding this patient. Last updated 18.[facility] [employer] Allergies Active Allergy Reactions Criticality Noted Date Comments Penicillins Anaphylaxis High 11/19/2018 Medications * Be aware that medications may not be up to date on this document. Alwaysverify current medications with the patient. Medication Sig Dispensed Refills Start Date End Date Status levothyroxine (SYNTHROID) 75 MCG tablet Take 75 mcg by mouth Active levothyroxine (SYNTHROID) 88 MCG tablet Take 88 mcg by mouth daily before breakfast Active HYDROcodone-acetami nophen (NORCO) 5-325 MG tablet Take 1 tablet by mouth every 4 hours as needed for Pain Active clonazePAM, disintegrating, 0.5 MG Take 0.5 mg by mouth as needed Active thyroid (WESTHROID) 65 MG tablet Take 65 mg by mouth daily before breakfast Active thyroid (WP THYROID) 65 MG tablet 1/4 of a pill qd Active topiramate (TOPAMAX) 25 MG tablet Take 1 tablet by mouth as directed Week 1: 25 mg qhs Week 2: 25 mg bid Week 3: 25 mg AM, 50 mg PM. Week 4: 50 mg bid 70 tablet 12/08/2018 Active Additional Information Patient not taking.Reported on 03/11/2019 Cyanocobalamin (B-12) 1000 MCG Take 1 tablet by mouth once daily Active Selden-3 Fatty Acids (FISH OIL OMEGA-3 PO) Take 1 tablet by mouth once daily Active magnesium 250 MG tablet Take 1 tablet by mouth once daily Active Acetaminophen (TYLENOL 8 HOUR PO) Take 2 tablets by mouth as needed Active acyclovir (ZOVIRAX) 800 MG tablet Take 250 mg by mouth as needed Active methocarbamol (ROBAXIN) 500 MG tablet Take 500 mg by mouth as needed Active Social History Tobacco Use Types Packs/Day Years Used Date Smoking Tobacco: Former Smokeless Tobacco: Former Alcohol Use Standard Drinks/Week Comments Yes 0 (1 standard drink = 0.6 oz pur e alcohol) Rarely Sex and Gender Information Value Date Recorded Sex Assigned at Not on file Gender Identity Not on file Sexual Orientation Not on file Last Filed Vital Signs Vital Sign Reading Time Taken Comments Blood Pressure 138/82 03/11/2019 3:40 PM CDT Pulse 69 03/11/2019 3:40 PM CDT Temperature - - Respiratory Rate 16 03/11/2019 3:40 PM CDT Oxygen Saturation 99% 03/11/2019 3:40 PM CDT Inhaled Oxygen Concentration - - Weight 86.2 kg (190 lb) 03/11/2019 3:40 PM CDT Height 172.7 cm (5' 8 ) 03/11/2019 3:40 PM CDT Body Mass Index 28.89 03/11/2019 3:40 PM CDT Plan of Treatment Not on file Care Teams Dockmaster Relationship Specialty Start Date End Date Gasper Richey MD [address] [address] PCP - General Internal Medicine 11/19/18
--- OUTSIDE RECORDS SUMMARY | 2024-09-17 18:06 | XMS_ITS | Patient Health Record ---
Author Organization [facility] Address [address] [address] Care Team Providers Care African History Professor Name Role Phone Myriam Jackson Unavailable [phone] Migration, Provider Unavailable Unavailable Allergies Allergen (clinical drug ingredient) Drug/Non Drug Allergy documented on EMR Reaction Allergy Type Onset Date Status Penicillin Unknown Drug Allergy Active Results Component Value Reference Range Notes COMPREHENSIVE METABOLIC PANE L Reviewed date:04/18/2024 08:25:29 PM Interpretation: Performing Lab:KS [facility], [address] [place], [address] Rebecca Becker MD Notes/Report: FASTING:YES FASTING: YES VITAMIN D, 25-HYDROXY, LC/MS /MS Reviewed date:04/18/2024 08:41:48 PM Interpretation: Performing Lab:KS [facility], [address] [place], [address] Rebecca Becker MD Notes/Report: FASTING:YES FASTING: YES ACTH, PLASMA Reviewed date:04/23/2024 10:05:32 PM Interpretation: Performing Lab:AMD, [facility], [address], [place], [address] Sebastian Zheng M.D.,PhD Notes/Report: FASTING:YES FASTING: YES DEXAMETHASONE Reviewed date:04/26/2024 12:37:42 PM Interpretation: Performing Lab:EZ, [facility],, [address] [place], [address] Kirsten Ray MD,PhD,CHUY Notes/Report: FASTING:YES MULTIPLE TESTING PRIORITIES; ROUTINE TESTING TO FOLLOW. FASTING: YES DEXAMETHASONE <20 Reference Ranges for Dexamethasone: Baseline: Less than 20 ng/dL 1 mg dexamethasone overnight: 180-550 ng/dL (8:00-10:00 AM) This test was developed and its analytical performance characteristics have been determined by [employer]. It has not been cleared or approved by FDA. This assay has been validated pursuant to the CLIA regulations and is used for clinical purposes. T3, FREE Reviewed date:04/20/2024 10:48:43 PM Interpretation: Performing Lab:[facility], [address], [place], [address] Rebecca Becker MD Notes/Report: FASTING:YES FASTING: YES CORTISOL, TOTAL Reviewed date:04/18/2024 08:24:40 PM Interpretation: Performing Lab:[facility], [address], [place], [address] Rebecca Becker MD Notes/Report: FASTING:YES FASTING: YES DHEA SULFATE Reviewed date:04/18/2024 08:24:32 PM Interpretation: Performing Lab:[facility], [address], [place], [address] Rebecca Becker MD Notes/Report: FASTING:YES FASTING: YES ESTRADIOL Reviewed date:04/18/2024 08:23:36 PM Interpretation: Performing Lab:[facility], [address], [place], [address] Rebecca Becker MD Notes/Report: FASTING:YES FASTING: YES FSH Reviewed date:04/18/2024 08:24:25 PM Interpretation: Performing Lab:[facility], [address], [place], [address] Rebecca Becker MD Notes/Report: FASTING:YES FASTING: YES HEMOGLOBIN A1c Reviewed date:04/19/2024 07:48:21 PM Interpretation: Performing Lab:[facility], [address], [place], [address] Rebecca Becker Notes/Report: FASTING:YES FASTING: YES INSULIN Reviewed date:04/18/2024 08:24:18 PM Interpretation: Performing Lab:[facility], [address], [place], [address] Rebecca Becker MD Notes/Report: FASTING:YES FASTING: YES LH Reviewed date:04/18/2024 08:24:10 PM Interpretation: Performing Lab:[facility], [address], [place], [address] Rebecca Becker MD Notes/Report: FASTING:YES FASTING: YES CBC (INCLUDES DIFF/PLT) Reviewed date:04/18/2024 08:24:55 PM Interpretation: Performing Lab:[facility], [address], [place], [address] Rebecca Becker MD Notes/Report: FASTING:YES FASTING: YES VITAMIN B12/FOLATE, SERUM PA KELSEY Reviewed date:04/18/2024 08:23:27 PM Interpretation: Performing Lab:[facility], [address], [place], [address] Rebecca Becker MD Notes/Report: FASTING:YES FASTING: YES PROGESTERONE Reviewed date:04/18/2024 08:23:59 PM Interpretation: Performing Lab:[facility], [address], [place], [address] Rebecca Becker MD Notes/Report: FASTING:YES FASTING: YES IRON AND TOTAL IRON BINDING CAPACITY Reviewed date:04/18/2024 08:25:38 PM Interpretation: Performing Lab:[facility], [address], [place], [address] Rebecca Becker MD Notes/Report: FASTING:YES FASTING: YES LIPID PANEL Reviewed date:04/18/2024 08:25:47 PM Interpretation: Performing Lab:[facility], [address], [place], [address] Rebecca Becker MD Notes/Report: FASTING:YES FASTING: YES T4, FREE Reviewed date:04/18/2024 08:23:51 PM Interpretation: Performing Lab:[facility], [facility], [address] [place], [address] Rebecca Becker MD Notes/Report: FASTING:YES FASTING: YES TSH Reviewed date:04/18/2024 08:23:43 PM Interpretation: Performing Lab:[facility], [facility], [address] [place], [address] Rebecca Becker MD Notes/Report: FASTING:YES FASTING: YES TESTOSTERONE, FREE (DIALYSIS ) AND TOTAL,MS Reviewed date:04/23/2024 07:34:23 AM Interpretation: Performing Lab:[facility], [facility], [address] [place] [address], [address], [address] Celso Gallegos MD,PhD Notes/Report: FASTING:YES FASTING: YES TESTOSTERONE, TOTAL, MS 15 2-45 ng/dL For additional information, please refer to https://[email or web address] Project.TrulySocial/faq/JVU787 (This link is being provided for informational/educational purposes only.) (Note) This test was developed and its analytical performance characteristics have been determined by [employer]. It has not been cleared or approved by the FDA. This assay has been validated pursuant to the CLIA regulations and is used for clinical purposes. TESTOSTERONE, FREE 2.1 0.1-6.4 pg/mL (Note) This test was developed and its analytical performance characteristics have been determined by [employer]. It has not been cleared or approved by the FDA. This assay has been validated pursuant to the CLIA regulations and is used for clinical purposes. [facility] [address] [place] [address],[address] [place] [id number] Celso Gallegos MD, PhD MAGNESIUM, RBC Reviewed date:04/23/2024 07:34:38 AM Interpretation: Performing Lab:[facility], [facility], [address] [place] [address], [address], [place], [address] Celso Gallegos MD,PhD Notes/Report: FASTING:YES FASTING: YES MAGNESIUM, RBC 5.1 4.0-6.4 mg/dL (Note) This test was developed and its analytical performance characteristics have been determined by [employer]. It has not been cleared or approved by the FDA. This assay has been validated pursuant to the CLIA regulations and is used for clinical purposes. [facility] [address] [address],[address] [facility] [address] Celso Gallegos MD, PhD Reason For Referral No Information Medications Medication SIG (Take, Route, Frequency, Duration) Notes Start Date End Date Status dexAMETHasone 1 MG 1 tab(s) orally at 10 pm night before 8 am cortisol for 1 days 03/19/2024 Active Unithroid 100 MCG (0.1 MG) 1 TAB(S) ORALLY ONCE A DAY for 30 DAYS *Please review and pick correct strength-formulatio n from [employer] options. If intended option is not shown, discontinue and re-order from Quick Search* 03/19/2024 Active Unithroid 50 MCG (0.05 MG) 1 TAB(S) ORALLY ONCE A DAY for 90 DAYS *Please review and pick correct strength-formulatio n from [employer] options. If intended option is not shown, discontinue and re-order from Quick Search* 05/07/2024 Active Problems Problem Type SNOMED Code ICD Code Onset Dates Problem Status W/U Status Risk Notes Problem Vitamin D deficiency (42054385) Vitamin D deficiency, unspecified (E55.9) Active confirmed Problem Hypothyroidism (55143935) Hypothyroidism, unspecified (E03.9) Active confirmed Problem Irregular menstruation (83249638) Irregular menstruation, unspecified (N92.6) Active confirmed Vital Signs Heart Rate 62 /min 05/07/2024 Blood pressure diastolic 80 mm Hg 05/07/2024 Height 69 in 05/07/2024 Blood pressure systolic 110 mm Hg 05/07/2024 Weight 212 lbs 05/07/2024 BMI 31.3 kg/m2 05/07/2024 Encounters Encounter Location Date Provider Diagnosis [facility] [address] [place] [address] 05/29/2024 Provider Migration Hypothyroidism, unspecified E03.9 [facility], [facility] - Myriam Jackson [address] [place] [address] 03/19/2024 Myriam Jackson Hypothyroidism, unspecified E03.9 ; Impaired fasting glucose R73.01 ; Other fatigue R53.83 ; Vitamin D deficiency, unspecified E55.9 and Irregular menstruation, unspecified N92.6 [facility] Myriam [facility] [address] [place] [address] 03/19/2024 [facility] Myriam Jackson [address] [place] [address] 05/19/2024 [facility] Myriam Jackson [address] [place] [address] 05/07/2024 Myriam Jackson Hypothyroidism, unspecified E03.9 ; Irregular menstruation, unspecified N92.6 ; Vitamin D deficiency, unspecified E55.9 and Prediabetes R73.03 Assessments Encounter Date Diagnosis (ICD Code) Assessment Notes Treatment Notes Treatment Clinical Notes Section Notes 05/29/2024 Hypothyroidism, unspecified (ICD-10 - E03.9) 03/19/2024 Hypothyroidism, unspecified (ICD-10 - E03.9) FT4 low at 0.76 ng/dL and TSH elevated- patient has overt hypothyroidism at this time and struggling with fatigue, IBS, brain fog, weight gain and palpitations- this is all secondary to uncontrolled hypothyroidism- provided samples of unithroid as patient previously on tirosint 100 mcg daily dose- given 25 mcg samples and advised to titrate slowly back up to 100 mcg daily as tolerated- she does not tolerate generic LT4 as this caused hives/rashes and itchiness in past. She has never been on unithroid or synthroid so will trial these as tirosint is very costly for patient. Trial on propranolol as needed for palpitations and she is aware to see if her headaches lessen and improve on lower dosing as we can uptitrate to XR long acting form of inderal for management of headaches if indicated. 03/19/2024 Impaired fasting glucose (ICD-10 - R73.01) Recommended patient to utilize the diabetesfoodhub.co m from the ADA website to help with food preparation as this presents ideal carb content per meal and will make carb counting easier for patient. Recommended she incorporate natural insulin sensitizers such as pears, apples, cinnamon, willard and sweet potatoes to help mobilize her endogenous insulin. Recommended up to 150 minutes of moderate level activity /exercise per week. 05/07/2024 Hypothyroidism, unspecified (ICD-10 - E03.9) 05/07/2024 Irregular menstruation, unspecified (ICD-10 - N92.6) 03/19/2024 Other fatigue (ICD-10 - R53.83) Will send for thyroid antibodies to screen for autoimmune thyroid disease in adition to CBC, CMP, ferritin, vit D and B12/folate to screen for other potential secondary causes of fatigue. Discussed carb counting and how to read food labels. 05/07/2024 Vitamin D deficiency, unspecified (ICD-10 - E55.9) 03/19/2024 Vitamin D deficiency, unspecified (ICD-10 - E55.9) Send for vitamin D as goal of 50 ng/mL to optimize bone and immune health. 05/07/2024 Prediabetes (ICD-10 - R73.03) 03/19/2024 Irregular menstruation, unspecified (ICD-10 - N92.6) Send for full hormone panel as she is more irregular/heavy and having menstrual migraines so likely estrogen dominant-may benefit from progesterone therapy. 03/19/2024 Other Spent 45 minute s preparing to see the patient (ex review of tests/chart), obtaining and / or reviewing separately obtained history, performing a medically appropriate examination and/or evaluation, counseling and educating the patient/family/car egiver, ordering medications, tests, or procedures, referring and communicating with other health rn care manager, documenting clinical information in the electronic or other health record, independently interpreting results and communicating results to the patient/family/car egiver and care coordinating patient plan. Patient alert and oriented x 4 and aware of discussion noted above and in agreeance to plan in management of hypothyroidism, impaired fasting glucose, fatigue and irregular cycles. 05/07/2024 Other Assessment and Plan: 1. Hypothyroidism- Patient reports feeling better on a lower dose of Unithroid (50 mcg) and has been cutting the pills in half for about 2 weeks.- Plan: Prescribe Unithroid 50 mcg and discontinue the higher dose. Recheck TSH and free T4 levels in 4 weeks. 2. Menstrual cycle irregularity- Patient has not had a menstrual cycle since last month and is due for one in a week.- Plan: Monitor for any changes in menstrual cycle and discuss further evaluation if needed. 3. Prediabetes- Patient's sugar levels are in the early prediabetes range, and this has been consistent for the last 3-4 years.- Plan: Encourage weight loss, healthy diet, and regular exercise. Reevaluate A1c levels and consider metformin or tirzepatide if A1c reaches 6%. 4. Vitamin D status- Patient's vitamin D level is within the normal range but could be optimized.- Plan: Recommend taking 4,000 IU of vitamin D daily, especially during winter months. 5. Migraine and positive JAZMINE- Patient reports a positive JAZMINE result from a neurologist visit two years ago.- Plan: Order a repeat JAZMINE test to assess for any changes. 6. DEXA suppression test- Patient has an existing order for the DEXA suppression test.- Plan: Remind patient to take the cortisone dexamethasone pill the night before the test and inform the lab when they go in for blood work. 7. Follow-up appointment- Plan: Schedule a follow-up appointment before the end of the year, after the patient completes the blood work around [facility]. Spent 25 minutes preparing to see the patient (ex review of tests/chart), obtaining and / or reviewing separately obtained history, performing a medically appropriate examination and/or evaluation, counseling and educating the patient/family/car egiver, ordering medications, tests, or procedures, referring and communicating with other health rn care manager, documenting clinical information in the electronic or other health record, independently interpreting results and communicating results to the patient/family/car egiver and care coordinating patient plan. Patient alert and oriented x 4 and aware of discussion noted above and in agreeance to plan in management of hypothyroidism, irregular cycles, prediabetes, vitamin D def. Due to the nature of telemedicine, the ability to do physical assessment was limited to what can be accomplished by patient directed telehealth visit based on instruction. Those limits are understood by the patient and myself. Impression is based on history, available information, and physical findings accomplished with telehealth visit. Chronic disease/problem list/ medication list reviewed and updated where indicated. Discussed diagnosis, plan including risks, benefits, and options of treatment. Advised to call for new, worsening, or persistent symptoms. Level of patient risk was of moderate complexity due to the documented nature of presentation, the information assessment required and the nature of the development of an evaluation and treatment plan as documented. PMH, FHx, SHx, Surgical Hx, Quality management review carried out and addressed as documented today as part of this visit. Medication list was reviewed and adjusted as indicated. Medication requiring a refill was addressed. Risk and benefits of any new medications were discussed and all questions were answered. Plan Of Treatment No Information Insurance Providers Payer Name Payer Address Payer Phone Subscriber Number Group Number Insured Name Patient Relationship to Insured Coverage Start Date Coverage End Date [facility] [address] [place] [address] [id number] Linda Carrasquillo Self - patient is the insured Medical (General) History Medical History History ICD Code hashimotos arthritus PMDD Surgical History Surgery Date(Month/Year) KNEE SCOPE SURGERY 10/04
--- OUTSIDE RECORDS SUMMARY | 2024-09-17 18:06 | XMS_ITS ---
Author Organization [facility] Address [address] [place] [address] Care Team Providers Care Saw Runner Name Role Phone Myriam Jackson [phone] Encounters Encounter Location Date Provider Diagnosis [facility] - Myriam Jackson [address] [place] [address] 05/19/2024 Myriam Jackson Plan Of Treatment No Information Progress Notes * Linda CARRASQUILLODOB:1990 ( 33 yo F)Acc No.[id number]:05/19/2024 Patient: Joel Linda STROUD :1990 A ge:33 Y S ex:Female Address:[address] [place] [address] * true * Date: Generated for Lenard hooker/Rose/eTransmitting on: 0 09/17/2024 06:05 PM DRAWING CHECKER
--- OUTSIDE RECORDS SUMMARY | 2024-09-17 18:06 | XMS_ITS | Clinical Summary ---
Author Organization [facility] Address [address] [facility] [place] [address] Care Team Providers Care Combat Control Manager Name Role Phone Gasper Richey MD Primary Care Provider Source Comments [facility],non-owned Affiliates and Associated Physician Practices is amultiple site organization consisting of ambulatory clinics and hospital sitesin [place], [place], [place] and [place]. This disclosure is being madepursuant to the Care Everywhere program and may not contain all information available regarding this patient. Last updated 18.[facility] Allergies Active Allergy Reactions Criticality Noted Date [...] 1 tablet by mouth once daily Active [place]-3 Fatty Acids (FISH OIL OMEGA-3 PO) Take [...] 500 mg by mouth as needed Active Family History Medical History Relation Name Comments Cancer - Other Father Diabetes - Gestational Maternal Grandfather Diabetes - Gestational Maternal Grandmother CVA Mother Seizures Mother Thyroid Disease Mother Diabetes - Gestational Paternal Grandfather Diabetes - Gestational Paternal Grandmother Relation Name Status Comments Father Maternal Grandfather Maternal Grandmother Mother Paternal Grandfather Paternal Grandmother Social History Tobacco Use Types Packs/Day Years [...] 03/11/2019 3:40 PM CDT Plan of Treatment Health Maintenance Due Date Last Done Comments PAP SMEAR 1989 HIV SCREENING 2004 HEPATITIS C SCREENING 11/22/2007 DTAP/TDAP/TD VACCINES (1 - Tdap) 2008 HEPATITIS B VACCINE (1 of 3 - 19+ 3-dose series) 2008 COVID-19 VACCINE ( - 2023-2 5 season) 2024 INFLUENZA VACCINE (#1) 2024 DEPRESSION SCREENING 07/14/2024 ZOSTER VACCINE (1 of 2) 11/27/2039 HIB VACCINE Aged Out No longer eligi ble based on patient's age to complete this topic HPV VACCINE Aged Out No longer eligi ble based on patient's age to complete this topic MENINGOCOCCAL (Group B) VACCINE Aged Out No longer eligible based on patient's age to complete this topic MENINGOCOCCAL VACCINE Aged Out No ian angel eligible based on patient's age to complete this topic PNEUMOCOCCAL VACCINE Aged Out No long er eligible based on patient's age to complete this topic Care Teams Combat Control Manager Relationship Specialty Start Date End Date Gasper Richey MD [address] [address] PCP - General Internal Medicine 11/19/18
--- OUTSIDE RECORDS SUMMARY | 2024-09-17 18:06 | XMS_ITS ---
Author Organization [facility] Address [address] [address] Care Team Providers Care Poultry Breeder Name Role Phone Migration, Provider Unavailable Unavailable Allergies Allergen (clinical drug ingredient) Drug/Non Drug Allergy documented on EMR Reaction Allergy Type Onset Date Status Penicillin Unknown Drug Allergy Active REASON FOR VISIT Multum To Medispan Conversion Encounter Medications Medication SIG (Take, Route, Frequency, Duration) Notes Start Date End Date Status dexAMETHasone 1 MG 1 tab(s) orally at 10 pm night before 8 am cortisol for 1 days 03/19/2024 Active Unithroid 100 MCG (0.1 MG) 1 TAB(S) ORALLY ONCE A DAY for 30 DAYS *Please review and pick correct strength-formulatio n from [employer] options. If intended option is not shown, discontinue and re-order from Quick Search* 03/19/2024 Active Unithroid 50 MCG (0.05 MG) 1 TAB(S) ORALLY ONCE A DAY for 90 DAYS *Please review and pick correct strength-formulatio n from [facility] options. If intended option is not shown, discontinue and re-order from Quick Search* 05/07/2024 Active [facility]counters [facility] [address] [address] [facility]/29/2024 Provider Migration Hypothyroidism, unspecified E03.9 Assessments Encounter Date Diagnosis (ICD Code) Assessment Notes Treatment Notes Treatment Clinical Notes Section Notes 05/29/2024 Hypothyroidism, unspecified (ICD-10 - E03.9) Plan Of Treatment Medication Medication Name Sig Start Date Stop Date Notes Unithroid 50 MCG (0.05 MG) 1 TAB(S) ORALLY ONCE A DAY for 90 DAYS 05/07/2024 *Please review and p ick correct strength-formulation from [employer] options. If intended option is not shown, discontinue and re-order from Quick Search* Progress Notes * Linda CARRASQUILLODOB:1990 ( 33 yo F)Acc No.[id number]:05/29/2024 Patient: Linda MCCRACKEN Provider: Lucia Gómez :1990 A ge:33 Y S ex:Female Date:05/29/2024 Address:[address] [place] [address] Subjective: * Chief Complaints: * 1 . Multum To Medispan Conversion Encounter. * Medical History: * Medications: T aking Unithroid 100 MCG (0.1 MG) TABLET 1 TAB(S) ORALLY ONCE A DAY , Notes to Pharmacist: *Please review and pick correct strength-formulation from [employer] options. If intended option is not shown, discontinue and re-order from Quick Search*, Taking dexAMETHasone 1 MG Tablet 1 tab(s) orally at 10 pm night before 8 am cortisol * Allergies: P enicillin. Objective: * Vitals: Assessment: * Assessment: 1. H ypothyroidism, unspecified - E03.9 (Primary) Plan: * Treatment: * Billing Information: * Visit Code: * Procedure Codes: * Electronic signature of Segun pires Migration on 09/17/2024 at 06:06 PM ASSEMBLY TECHNICIAN Sign off status: Pending * Provider: Lucia Gómez Date: 07/29/2023 Generated for Lenard hooker/Rose/Denise on: 0 09/17/2024 06:06 PM ASSEMBLY TECHNICIAN
--- OUTSIDE RECORDS SUMMARY | 2024-09-17 18:06 | XMS_ITS | Clinical Summary ---
Author Organization [facility] Address [address] [place] [address] Phone Care Team Providers Care Rv Mechanic Name Role Phone Gasper Richey MD Primary Care Provider Active Problems Problem Noted Date Diagnosed Date Chronic pain syndrome 05/27/2018 Somatic symptom disorder, pe rsistent, severe, with predominant pain 05/27/2018 Social History Tobacco Use Types Packs/Day Years Used Date Smoking Tobacco: Never Assessed Comments Unknown Sex and Gender Information Value Date Recorded Sex Assigned at Not on file Legal Sex Female 6:46 PM [employer] Gender Identity Not on file Sexual Orientation Not on file Plan of Treatment Health Maintenance Due Date Last Done Comments Hepatitis C Virus (HCV) Screening 1989 Hepatitis B Immunization (1 of 3 - 19+ 3-dose series) 2008 Pap Smear 2010 Cervical Cancer Screening (CCS) 11/27/2019 HPV/Cotest 11/27/2019 Influenza Immunization (#1) 2024 SARS-COV-2 Immunization ( season) 2024 Respiratory Syncytial Virus (RSV) Immunization (Adult) (1 - 1-dose 75+ series) 2064 DTaP/Tdap/Td Immunization Discontinued 03/01/2017 TdaP Immunization Completed 03/01/2017 Meningococcal Immunization (ACWY) Aged Out No longer eligible based on patient's age to complete this topic Pneumococcal Immunization Combined Aged Out No longer eligible b ased on patient's age to complete this topic Rotavirus Immunization Aged Out No lo nger eligible based on patient's age to complete this topic Insurance [employer] Care Teams Rv Mechanic Relationship Specialty Start Date End Date Gasper Richey MD [address] [place] [address] [place] [id number] PCP - General Internal Medicine 05/22/18
--- OUTSIDE RECORDS SUMMARY | 2024-09-17 18:07 | XMS_ITS | Patient Health Summary ---
Author Organization [facility] Address [address] [facility] [facility] [place] [address] Care Team Providers Care Broommaking Supervisor Name Role Phone Gasper Richey MD Primary Care Provider Note from [facility],non-owned Affiliates and Associated Physician Practices is amultiple site organization consisting of ambulatory clinics and hospital sitesin [place], [place], [place] and [place]. This disclosure is being madepursuant to the Care Everywhere program and may not contain all information available regarding this patient. Last updated 18.[facility] Allergies * Penicillins(Anaphylaxis) -High Criticality Medications * Be aware that medications may not be up to date on this document. Alwaysverify current medications with the patient. * levothyroxine (SYNTHROID) 75 MCG tablet Take 75 mcg by mouth * levothyroxine (SYNTHROID) 88 MCG tablet Take 88 mcg by mouth daily before breakfast * HYDROcodone-acetaminophen (NORCO) 5-325 MG tablet Take 1 tablet by mouth every 4 hours as needed for Pain * clonazePAM, disintegrating, 0.5 MG Take 0.5 mg by mouth as needed * thyroid (WESTHROID) 65 MG tablet Take 65 mg by mouth daily before breakfast * thyroid (WP THYROID) 65 MG tablet 1/4 of a pill qd * topiramate (TOPAMAX) 25 MG tablet(Started 12/08/2018) Take 1 tablet by mouth as directed Week 1: 25 mg qhs Week 2: 25 mg bid Week 3: 25 mg AM, 50 mg PM. Week 4: 50 mg bid * Cyanocobalamin (B-12) 1000 MCG Take 1 tablet by mouth once daily * [place]-3 Fatty Acids (FISH OIL OMEGA-3 PO) Take 1 tablet by mouth once daily * magnesium 250 MG tablet Take 1 tablet by mouth once daily * Acetaminophen (TYLENOL 8 HOUR PO) Take 2 tablets by mouth as needed * acyclovir (ZOVIRAX) 800 MG tablet Take 250 mg by mouth as needed * methocarbamol (ROBAXIN) 500 MG tablet Take 500 mg by mouth as needed Social History Tobacco Use Types Packs/Day Years [...] Mass Index 28.89 03/11/2019 3:40 PM CDT Procedures * EMG WITH NERVE CONDUCTION STUDY(Performed 12/01/2018) Performed for Chronic bilateral low back pain with bilateral sciatica, Chronic migraine without aura without status migrainosus, not intractable, Neuropathy * CIERRA STAINING PATTERNS REFLEXED(Performed 11/19/2018) Performed for Neuropathy * ANCA VASCULITIS PANEL(Performed 11/19/2018) Performed for Neuropathy * JARAD ANTIBODY PANEL(Performed 11/19/2018) Performed for Neuropathy * PROTEIN ELECTROPHORESIS BLOOD(Performed 11/19/2018) Performed for Neuropathy * IMMUNOFIXATION BLOOD(Performed 11/19/2018) Performed for Neuropathy * VITAMIN B12(Performed 11/19/2018) Performed for Neuropathy * RHEUMATOID FACTOR BLOOD QUANTITATIVE(Performed 11/19/2018) Performed for Neuropathy * JAZMINE BLOOD SCREEN W/REFLEX TITER(Performed 11/19/2018) Performed for Neuropathy * T4 TOTAL(Performed 11/19/2018) Performed for Neuropathy * TSH(Performed 11/19/2018) Performed for Neuropathy * GROSS + MICRO EXAM(Performed 06/11/2007) Results * EMG WITH NERVE CONDUCTION STUDY (12/01/2018 3:04 PM CDT) Narrative Gavin Ga MD - 12/01/2018 3:04 PM CDT Gavin Ga MD 12/01/2018 3:04 PM [facility] [place] [address], [address], [place] [address] Test Date: 12/01/2018 Patient: Linda Carrasquillo : 1990 Physician: Gavin Ga MD Sex: Female Height: 5' 8 Ref Phys: ID#: [id number] Weight: 191 lbs. Patient Complaints: Patient is a 28 year old female who was referred to rule out a neuropathy. Patient presents with complaints of neck pain, back pain, numbness, and tingling in the bilateral upper and lower extremities. Symptoms have been present for 3 months Nerve Conduction Studies Anti Sensory Summary Table Stim Site NR Peak (ms) Norm Peak (ms) P-T Amp ( V) Norm P-T Amp Site1 Site2 Delta-P (ms) Dist (cm) Ben (m/s) Norm Ben (m/s) Left Radial Anti Sensory (Base 1st Digit) Wrist 2.1 <3.1 23.6 Wrist Base 1st Digit 2.1 0.0 Site 2 2.1 29.5 Right Radial Anti Sensory (Base 1st Digit) 21.3 C Wrist 1.9 <3.1 33.2 Wrist Base 1st Digit 1.9 0.0 Site 2 1.9 30.6 Left Sup Peroneal Anti Sensory (Ant Lat Mall) 14 cm 3.2 <4.4 18.4 >5.0 14 cm Ant Lat Mall 3.2 14.0 44 >32 Site 2 3.1 23.7 Right Sup Peroneal Anti Sensory (Ant Lat Mall) 14 cm 2.5 <4.4 11.0 >5.0 14 cm Ant Lat Mall 2.5 14.0 56 >32 Site 2 2.4 10.4 Left Sural Anti Sensory (Lat Mall) Calf 3.8 <4.0 19.5 >5.0 Calf Lat Mall 3.8 14.0 37 >35 Site 2 3.8 37.9 Right Sural Anti Sensory (Lat Mall) Calf 3.2 <4.0 21.0 >5.0 Calf Lat Mall 3.2 14.0 44 >35 Site 2 3.3 12.2 Motor Summary Table Stim Site NR Onset (ms) Norm Onset (ms) O-P Amp (mV) Norm O-P Amp Amp (Prev) (%) Site1 Site2 Delta-0 (ms) Dist (cm) Ben (m/s) Norm Ben (m/s) Left Median Motor (Abd Poll Brev) Wrist 3.1 <4.2 8.9 >5 100.0 Elbow Wrist 3.8 24.0 63 >50 Elbow 6.9 8.3 93.3 Right Median Motor (Abd Poll Brev) 21.3 C Wrist 3.4 <4.2 9.7 >5 100.0 Elbow Wrist 4.1 25.0 61 >50 Elbow 7.5 9.2 94.8 Left Peroneal Motor (Ext Dig Brev) Ankle 3.9 <6.1 5.5 >2.5 100.0 B Fib Ankle 7.1 37.0 52 >38 B Fib 11.0 5.2 94.5 Poplt B Fib 2.1 10.0 48 >40 Poplt 13.1 5.0 96.2 Right Peroneal Motor (Ext Dig Brev) Ankle 3.1 <6.1 6.1 >2.5 100.0 B Fib Ankle 7.7 36.0 47 >38 B Fib 10.8 5.6 91.8 Poplt B Fib 2.2 10.0 45 >40 Poplt 13.0 5.4 96.4 Left Tibial Motor (Abd Lowe Brev) Ankle 2.8 <6.1 17.0 >3.0 100.0 Knee Ankle 8.8 47.0 53 >35 Knee 11.6 9.9 58.2 Right Tibial Motor (Abd Lowe Brev) Ankle 2.4 <6.1 24.5 >3.0 100.0 Knee Ankle 9.2 47.0 51 >35 Knee 11.6 16.2 66.1 Left Ulnar Motor (Abd Dig Minimi) Wrist 2.2 <4.2 11.9 >3 100.0 B Elbow Wrist 3.0 20.0 67 >53 B Elbow 5.2 11.9 100.0 A Elbow B Elbow 1.7 10.0 59 >53 A Elbow 6.9 11.2 94.1 Right Ulnar Motor (Abd Dig Minimi) 21.3 C Wrist 2.3 <4.2 11.2 >3 100.0 B Elbow Wrist 3.2 20.0 63 >53 B Elbow 5.5 10.8 96.4 A Elbow B Elbow 1.4 10.0 71 >53 A Elbow 6.9 10.8 100.0 Comparison Summary Table Stim Site NR Peak (ms) Norm Peak (ms) P-T Amp ( V) Site1 Site2 Delta-P (ms) Norm Delta (ms) Left Median/Ulnar Palm Comparison (Wrist - 8cm) Median Palm 2.1 <2.1 124.2 Median Palm Ulnar Palm *0.4 <0.3 Ulnar Palm 1.7 <2.1 51.1 Right Median/Ulnar Palm Comparison (Wrist - 8cm) 21.3 C Median Palm *2.3 <2.1 123.9 Median Palm Ulnar Palm *0.8 <0.3 Ulnar Palm 1.5 <2.1 52.4 6.0 0.6 F Wave Studies NR F-Lat (ms) Lat Norm (ms) L-R F-Lat (ms) L-R Lat Norm Left Median (Mrkrs) (Abd Poll Brev) 25.89 <29.9 0.00 <2.2 Right Median (Mrkrs) (Abd Poll Brev) 21.3 C 25.89 <29.9 0.00 <2.2 Left Peroneal (Mrkrs) (EDB) 48.47 <51.9 0.00 <5.1 Right Peroneal (Mrkrs) (EDB) 48.47 <51.9 0.00 <5.1 Left Tibial (Mrkrs) (Abd Hallucis) 52.21 <54.5 0.00 <5.7 Right Tibial (Mrkrs) (Abd Hallucis) 52.21 <54.5 0.00 <5.7 Left Ulnar (Mrkrs) (Abd Dig Min) 25.65 <30.2 0.00 <2.5 Right Ulnar (Mrkrs) (Abd Dig Min) 21.3 C 25.65 <30.2 0.00 <2.5 EMG Side Muscle Nerve Root Ins Act Fibs Psw Fasc Amp Dur Poly Recrt Int Pat Comment Right Deltoid Axillary C5-6 Nml Nml Nml Nml Nml Nml 0 Nml Nml Right Biceps Musculocut C5-6 Nml Nml Nml Nml Nml Nml 0 Nml Nml Right Triceps Radial C6-7-8 Nml Nml Nml Nml Nml Nml 0 Nml Nml Right BrachioRad Radial C5-6 Nml Nml Nml Nml Nml Nml 0 Nml Nml Right ExtCarRadLong Radial C6-7 Nml Nml Nml Nml Nml Nml 0 Nml Nml Right 1stDorInt Ulnar C8-T1 Nml Nml Nml Nml Nml Nml 0 Nml Nml Right Abd Poll Brev Median C8-T1 Nml Nml Nml Nml Nml Nml 0 Nml Nml Right VastusMed Femoral L2-4 Nml Nml Nml Nml Nml Nml 0 Nml Nml Right AntTibialis Dp Br Peron L4-5 Nml Nml Nml Nml Nml Nml 0 Nml Nml Right Gastroc Tibial S1-2 Nml Nml Nml Nml Nml Nml 0 Nml Nml Right Ext Dig Brev Dp Br Peron L5, S1 Nml Nml Nml Nml Nml Nml 0 Nml Nml Left VastusMed Femoral L2-4 Nml Nml Nml Nml Nml Nml 0 Nml Nml Left AntTibialis Dp Br Peron L4-5 Nml Nml Nml Nml Nml Nml 0 Nml Nml Left Gastroc Tibial S1-2 Nml Nml Nml Nml Nml Nml 0 Nml Nml Left Ext Dig Brev Dp Br Peron L5, S1 Nml Nml Nml Nml Nml Nml 0 Nml Nml Left Deltoid Axillary C5-6 Nml Nml Nml Nml Nml Nml 0 Nml Nml Left Biceps Musculocut C5-6 Nml Nml Nml Nml Nml Nml 0 Nml Nml Left Triceps Radial C6-7-8 Nml Nml Nml Nml Nml Nml 0 Nml Nml Left BrachioRad Radial C5-6 Nml Nml Nml Nml Nml Nml 0 Nml Nml Left ExtCarRadLong Radial C6-7 Nml Nml Nml Nml Nml Nml 0 Nml Nml Left 1stDorInt Ulnar C8-T1 Nml Nml Nml Nml Nml Nml 0 Nml Nml Left Abd Poll Brev Median C8-T1 Nml Nml Nml Nml Nml Nml 0 Nml Nml Nerve Conduction Studies Anti Sensory Left/Right Comparison Stim Site L Lat (ms) R Lat (ms) L-R Lat (ms) L Amp ( V) R Amp ( V) L-R Amp (%) Site1 Site2 L Ben (m/s) R Ben (m/s) L-R Ben (m/s) Radial Anti Sensory (Base 1st Digit) Wrist 2.1 1.9 0.2 23.6 33.2 28.9 Wrist Base 1st Digit Site 2 2.1 1.9 0.2 29.5 30.6 3.6 Sup Peroneal Anti Sensory (Ant Lat Mall) 14 cm 3.2 2.5 0.7 18.4 11.0 40.2 14 cm Ant Lat Mall 44 56 12 Site 2 3.1 2.4 0.7 23.7 10.4 56.1 Sural Anti Sensory (Lat Mall) Calf 3.8 3.2 0.6 19.5 21.0 7.1 Calf Lat Mall 37 44 7 Site 2 3.8 3.3 0.5 37.9 12.2 67.8 Motor Left/Right Comparison Stim Site L Lat (ms) R Lat (ms) L-R Lat (ms) L Amp (mV) R Amp (mV) L-R Amp (%) Site1 Site2 L Ben (m/s) R Ben (m/s) L-R Ben (m/s) Median Motor (Abd Poll Brev) Wrist 3.1 3.4 0.3 8.9 9.7 8.2 Elbow Wrist 63 61 2 Elbow 6.9 7.5 0.6 8.3 9.2 9.8 Peroneal Motor (Ext Dig Brev) Ankle 3.9 3.1 0.8 5.5 6.1 9.8 B Fib Ankle 52 47 5 B Fib 11.0 10.8 0.2 5.2 5.6 7.1 Poplt B Fib 48 45 3 Poplt 13.1 13.0 0.1 5.0 5.4 7.4 Tibial Motor (Abd Lowe Brev) Ankle 2.8 2.4 0.4 17.0 24.5 30.6 Knee Ankle 53 51 2 Knee 11.6 11.6 0.0 9.9 16.2 38.9 Ulnar Motor (Abd Dig Minimi) Wrist 2.2 2.3 0.1 11.9 11.2 5.9 B Elbow Wrist 67 63 4 B Elbow 5.2 5.5 0.3 11.9 10.8 9.2 A Elbow B Elbow 59 71 12 A Elbow 6.9 6.9 0.0 11.2 10.8 3.6 Comparison Left/Right Comparison Stim Site L Lat (ms) R Lat (ms) L-R Lat (ms) L Amp ( V) R Amp ( V) L-R Amp (%) Median/Ulnar Palm Comparison (Wrist - 8cm) Median Palm 2.1 *2.3 0.2 124.2 123.9 0.2 Ulnar Palm 1.7 1.5 0.2 51.1 52.4 2.5 NCV Findings: ? Evaluation of the left median/ulnar (palm) comparison nerve showed abnormal peak latency difference (Median Palm-Ulnar Palm, 0.4 ms). ? The right median/ulnar (palm) comparison nerve showed prolonged distal peak latency (Median Palm, 2.3 ms) and abnormal peak latency difference (Median Palm-Ulnar Palm, 0.8 ms). ? All remaining nerves (as indicated in the following tables) were within normal limits. ? All left vs. right side differences were within normal limits. EMG Findings: ? All examined muscles (as indicated in the following table) showed no evidence of electrical instability. IMPRESSION: ? 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 This was present by comparison studies only. ? There was no evidence of a sensory neuropathy, or radiculopathy. ? Clinical correlation is recommended. Gavin Ga MD Waveforms: Gavin Ga MD NEUROLOGY ORDERABLES * CIERRA STAINING PATTERNS REFLEXED (11/19/2018 2:39 PM CDT) Homogeneous Pattern NOT NEEDED [facility] INSURANCE BILL Comment:Ancillary determined the test is not needed Nucleolar Pattern NOT NEEDED [facility] INSURANCE BILL Comment:Ancillary determined the test is not needed Speckled Pattern 1:80 [facility] INSURANCE BILL Centromere Pattern NOT NEEDED [facility] INSURANCE BILL Comment:Ancillary determined the test is not needed Spindle Apparatus Pattern NOT NEEDED [facility] INSURANCE BILL Comment:Ancillary determined the test is not needed Nuclear Membrane Pattern NOT NEEDED [facility] INSURANCE BILL Comment:Ancillary determined the test is not needed Midbody Pattern NOT NEEDED [facility] INSURANCE BILL Comment:Ancillary determined the test is not needed Nuclear Dot Pattern NOT NEEDED [facility] INSURANCE BILL Comment:Ancillary determined the test is not needed PCNA Pattern NOT NEEDED [facility] INSURANCE BILL Comment:Ancillary determined the test is not needed Centriole Pattern NOT NEEDED [facility] INSURANCE BILL Comment:Ancillary determined the test is not needed Note [facility] INSURANCE BILL Comment: A positive JAZMINE result may occur in healthy individuals (low titer) or be associated with a variety of diseases. See interpretation chart which is not all inclusive: . Pattern Antigen Detected Suggested Disease Association Homogeneous DNA(ds,ss), SLE - High titers Nucleosomes, Histones Drug-induced SLE Speckled Sm, SITE ADMINISTRATOR, SCL-70, SLE,MCTD,PSS (diffuse form), SS-A/SS-B Sjogrens Nucleolar SCL-70, PM-1/SCL High titers Scleroderma, PM/DM Centromere Centromere PSS (limited form) w/Crest syndrome variable Nuclear Dot Sp100,[id number] Primary Biliary Cirrhosis Nuclear GP210, Primary Biliary Cirrhosis Membrane harleen A,B,C 11/19/2018 2:39 PM CDT 11/19/2018 Narrative Resulting Agency Comment Lab Testing performed at: [facility] [address] [phone] Gavin Ga MD LAB - PATHOLOGY/CYTO LOGY ORDERABLES Performing Organization Address [facility] de Phone Number [facility] INSURANCE BILL [address] [place] [address] * IMMUNOFIXATION (11/19/2018 2:39 PM CDT) Immunofixation Result [facility] INSURANCE BILL Comment:No monoclonality det ected. IgG Quantitative 1,258 700 - 1,600 mg/dL [facility] INSURANCE BILL IgA Quantitative 155 87 - 352 mg/dL [facility] INSURANCE BILL IgM Quantitative 104 26 - 217 mg/dL [facility] INSURANCE BILL Blood BLOOD SPECIMEN / Unknown 11/19/2018 2:39 PM CDT 11/19/2018 Narrative Resulting Agency Comment Lab Testing performed at: [employer] [address] [facility] [phone] Gavin Ga MD LAB - CHEMISTRY [place] [facility] INSURANCE BILL [address] [place] [address] * ANCA VASCULITIS PANEL (11/19/2018 2:39 PM CDT) Anti-myeloperoxid ase (MPO) Antibody <9.0 0.0 - 9.0 U/mL [facility] INSURANCE BILL Anti-proteinase 3 (WV-3) Abs <3.5 0.0 - 3.5 U/mL [facility] INSURANCE BILL Cytoplasmic (C-ANCA) <1:20 Neg:<1:20 titer [facility] INSURANCE BILL p-ANCA Titer <1:20 Neg:<1:20 titer [facility] INSURANCE BILL Comment: The presence of positive fluorescence exhibiting P-ANCA or C-ANCA patterns alone is not specific for the diagnosis of Shannon's Granulomatosis (WG) or microscopic polyangiitis. Decisions about treatment should not be based solely on ANCA IFA results. The International ANCA Group Consensus recommends follow up testing of positive sera with both WV-3 and MPO-ANCA enzyme immunoassays. As many as 5% serum samples are positive only by EIA. Ref. AM J Clin Pathol 1999;111:507-513. Atypical p-ANCA Titer <1:20 Neg:<1:20 titer [facility] INSURANCE BILL Comment: The atypical pANCA pattern has been observed in a significant percentage of patients with ulcerative colitis, primary sclerosing cholangitis and autoimmune hepatitis. Blood BLOOD SPECIMEN / Unknown 11/19/2018 2:39 PM CDT 11/19/2018 Narrative Resulting Agency Comment Lab Testing performed at: [employer] [id number] Gavin Ga MD LAB - CHEMISTRY [place] [facility] INSURANCE BILL [address] [place] [address] * RHEUMATOID FACTOR BLOOD QUANTITATIVE (11/19/2018 2:39 PM CDT) Rheumatoid Factor <10.0 0.0 - 13.9 IU/mL [facility] INSURANCE BILL Blood BLOOD SPECIMEN / Unknown 11/19/2018 2:39 PM CDT 11/19/2018 Narrative Resulting Agency Comment Lab Testing performed at: [facility] [address] [facility] [phone] Gavin Ga MD LAB - CHEMISTRY [place] Performing Organization Address City/[facility]/ZIP Co de Phone Number [facility] INSURANCE BILL [address] [place] [address] * (ABNORMAL) JAZMINE BLOOD SCREEN W/REFLEX TITER (11/19/2018 2:39 PM CDT) JAZMINE Positive(A ) [facility] INSURANCE BILL Comment: Negative <1:80 Borderline 1:80 Positive >1:80 Blood BLOOD SPECIMEN / Unknown 11/19/2018 2:39 PM CDT 11/19/2018 Narrative Resulting Agency Comment Lab Testing performed at: [facility] [employer] [place] [phone] Gavin Ga MD LAB - CHEMISTRY [place] Performing Organization Address [facility] Co de Phone Number [facility] INSURANCE BILL [address] [place] [address] * JARAD ANTIBODY PANEL (11/19/2018 2:39 PM CDT) SITE ADMINISTRATOR Antibody <0.2 0.0 - 0.9 AI [facility] INSURANCE BILL [place] (JARAD) Antibody <0.2 0.0 - 0.9 AI [facility] INSURANCE BILL Sjogren's Antibodies (SSA) <0.2 0.0 - 0.9 AI [facility] INSURANCE BILL Sjogren's Antibodies (SSB) <0.2 0.0 - 0.9 AI [facility] INSURANCE BILL Blood BLOOD SPECIMEN / Unknown 11/19/2018 2:39 PM CDT 11/19/2018 Narrative Resulting Agency Comment Lab Testing performed at: [facility] [address] [facility] [phone] Gavin Ga MD LAB - CHEMISTRY [place] Performing Organization Address City/[facility]/ZIP Co de Phone Number [facility] INSURANCE BILL [address] [place] [address] * VITAMIN B12 (11/19/2018 2:39 PM CDT) Vitamin B12 999 232 - 1,245 pg/mL [facility] INSURANCE BILL Blood BLOOD SPECIMEN / Unknown 11/19/2018 2:39 PM CDT 11/19/2018 Narrative Resulting Agency Comment [facility]: [facility] [address] [facility] [phone] Gavin Ga MD LAB - CHEMISTRY [place] [facility] INSURANCE BILL [address] [place] [address] * (ABNORMAL) TSH (11/19/2018 2:39 PM CDT) TSH 0.272(L) 0.450 - 4.500 uIU/mL [facility] INSURANCE BILL Blood BLOOD SPECIMEN / Unknown 11/19/2018 2:39 PM CDT 11/19/2018 Narrative Resulting Agency Comment [facility]: [facility] [address] [facility] [phone] Gavin Ga MD LAB - CHEMISTRY [place] Performing Organization Address City/[facility]/ZIP Co de Phone Number [facility] INSURANCE BILL [address] [place] [address] * T4 TOTAL (11/19/2018 2:39 PM CDT) T4 Total 9.1 4.5 - 12.0 ug/dL [facility] INSURANCE BILL Blood BLOOD SPECIMEN / Unknown 11/19/2018 2:39 PM CDT 11/19/2018 Narrative Resulting Agency Comment Lab Testing performed at: [facility] [facility] [phone] Gavin Ga MD LAB - CHEMISTRY [place] [facility] INSURANCE BILL [address] [place] [address] * PROTEIN ELECTROPHORESIS BLOOD (11/19/2018 2:39 PM CDT) Protein Total 7.9 6.0 - 8.5 g/dL [facility] INSURANCE BILL Albumin 4.4 2.9 - 4.4 g/dL [facility] INSURANCE BILL Alpha-1 Globulin 0.3 0.0 - 0.4 g/dL [facility] INSURANCE BILL Mmvaa-8-Xitxfmly 0.8 0.4 - 1.0 g/dL [facility] INSURANCE BILL Beta-Globulin 1.1 0.7 - 1.3 g/dL [facility] INSURANCE BILL Gamma Globulin 1.3 0.4 - 1.8 g/dL [facility] INSURANCE BILL M-Sukhwinder Not Observed Not Observed g/dL [facility] INSURANCE BILL Globulin Total 3.5 2.2 - 3.9 g/dL [facility] INSURANCE BILL Albumin/Globulin Ratio 1.3 0.7 - 1.7 [facility] INSURANCE BILL Please Note [facility] INSURANCE BILL Comment: Protein electrophoresis scan will follow via computer, mail, or founder and ceo delivery. P E Interpretation, S [facility] INSURANCE BILL Comment: The SPE pattern appears essentially unremarkable. Evidence of monoclonal protein is not apparent. Blood BLOOD SPECIMEN / Unknown 11/19/2018 2:39 PM CDT 11/19/2018 Narrative Resulting Agency Comment [facility]: [facility] [address] [facility] [phone] Gavin Ga MD LAB - CHEMISTRY [place] [facility] INSURANCE BILL [address] [place] [address] * GROSS + MICRO EXAM (06/11/2007 12:25 PM BICYCLE TECHNICIAN) Result CASE NUMBER [id number] [facility] PATH REPORT Comment: ORDERING PHYSICIAN ISIDORO TOBAR SPECIMEN TYPE Esophagus CLINICAL HISTORY The patient is a 16-year-old girl with weight loss who underwent upper endoscopy which was found to be normal. GROSS DESCRIPTION The specimens are received fixed in formalin in six containers for gross and microscopic examination. In the first container, labeled esophagus, are two 4 mm soft, chávez- pink tissue fragments submitted in toto as A. In the second container, labeled stomach, are two 3 mm soft, yellow- lancaster tissue fragments submitted in toto as B. In the third container, labeled duodenum, are two 3 mm soft, yellow- lancaster tissue fragments submitted in toto as C. In the fourth container, labeled TI, are three, 3 mm soft, yellow-lancaster tissue fragments submitted in toto as D. In the fifth container, labeled cecum, are four, 3 mm soft, yellow-lancaster tissue fragments submitted in toto as E. In the sixth and final container, labeled rectum, are three, 4 mm soft, yellow-lancaster tissue fragments submitted in toto as F. (DSB/CT/nab) MICROSCOPIC DESCRIPTION A) 3 H/E B) 3 H/E C) 3 H/E D) 3 H/E E) 3 H/E F) 3 H/E. Sections of the esophagus biopsy show fragments of esophageal epithelium with spongiosis, subtle basal hyperplasia, subtle elongation in papillae, a mild increase in intraepithelial lymphocytes, and an occasional intraepithelial eosinophil. Sections of the stomach biopsy show fragments of unremarkable gastric mucosa. Sections of the duodenal biopsy show unremarkable duodenal mucosa. Sections of the terminal ileum biopsy show fragments of small intestinal mucosa that are unremarkable except for prominence of lymphoid tissue (Peyer's patch). Sections of the cecum biopsy show fragments of large intestinal mucosa with a mild increase in cellularity of the lamina propria, occasional neutrophils in the surface epithelium, and a rare neutrophil infiltrating a rare crypt. No crypt abscesses or granulomata are present. There is no significant architectural distortion. Sections of the rectum biopsy show fragments of unremarkable large intestinal mucosa. (DSB/GC/ld) DIAGNOSIS DIAGNOSIS A) ESOPHAGUS, BIOPSY - ESOPHAGITIS, MILD. B) STOMACH, BIOPSY - NO PATHOLOGIC DIAGNOSIS. C) SMALL INTESTINE, DUODENUM, BIOPSY - NO PATHOLOGIC DIAGNOSIS. D) SMALL INTESTINE, TERMINAL ILEUM, BIOPSY - NO PATHOLOGIC DIAGNOSIS. E) LARGE INTESTINE, CECUM, BIOPSY - ACUTE CECITIS, MINIMAL. F) LARGE INTESTINE, RECTUM, BIOPSY - NO PATHOLOGIC DIAGNOSIS. This case has been personally reviewed and interpreted by the attending (teaching) pathologist. Ad Operations Intern SHANE MARTELL A RESIDENT IN PATHOLOG Antoni Sanchez M.D. PATHOLOGIST Tom Durand M.D. ELECTRONICALLY MADIHA TOM DURAND MISCELLANEOUS SAMPLES / Unknown 06/11/2007 12:25 PM BICYCLE TECHNICIAN 06/11/2007 1:15 PM BICYCLE TECHNICIAN Historical Provider LAB - PATHOLOGY/C YTOLOGY ORDERABLES [facility] PATH REPORT Care Teams Broommaking Supervisor Relationship Specialty Start Date End Date Gasper Richey MD [address] [address] PCP - General Internal Medicine 11/19/18
--- OUTSIDE RECORDS SUMMARY | 2024-09-17 18:07 | XMS_ITS ---
Author Organization [facility] Address [address] [address] Care Team Providers Care Senior Sql Server Developer Name Role Phone Manuel Myriam Yao [phone] REASON FOR VISIT Lab Review-text Medications Medication SIG (Take, Route, Frequency, Duration) Notes Start Date End Date Status DEXAMETHASONE 1 mg 1 tab(s) orally at 1 0 pm night before 8 am cortisol for 1 days 03/19/2024 Active UNITHROID 100 mcg (0.1 mg) 1 tab(s) oral ly once a day for 30 days 03/19/2024 Active UNITHROID 50 mcg (0.05 mg) 1 tab(s) oral ly once a day for 90 days 05/07/2024 Active Vital Signs Blood pressure systolic 110 mm Hg 05/07/20 24 Blood pressure diastolic 80 mm Hg 024 Heart Rate 62 /min 05/07/2024 Height 69 in 05/07/2024 Weight 212 lbs 05/07/2024 BMI 31.3 kg/m2 05/07/2024 Encounters Encounter Location Date Provider Diagnosis [facility] - Myriam Jackson [address] [place] [address] 05/07/2024 Myriam Jackson Hypothyroidism, unspecified E03.9 ; Irregular menstruation, unspecified N92.6 ; Vitamin D deficiency, unspecified E55.9 and Prediabetes R73.03 Assessments Encounter Date Diagnosis (ICD Code) Assessment Notes Treatment Notes Treatment Clinical Notes Section Notes 05/07/2024 Hypothyroidism, unspecified (ICD-10 - E03.9) 05/07/2024 Irregular menstruation, unspecified (ICD-10 - N92.6) 05/07/2024 Vitamin D deficiency, unspecified (ICD-10 - E55.9) 05/07/2024 Prediabetes (ICD-10 - R73.03) 05/07/2024 Other Assessment and Plan: 1. Hypothyroidism- [...] the patient completes the blood work around . Spent 25 minutes preparing to see the patient (ex review of tests/chart), obtaining and / or reviewing separately obtained history, performing a medically appropriate examination and/or evaluation, counseling and educating the patient/family/ca regiver, ordering medications, tests, or procedures, referring and communicating with other health acute care certified nursing assistant, documenting clinical information in the electronic or other health record, independently interpreting results and communicating results to the patient/family/ca regiver and care coordinating patient plan. Patient alert [...] all questions were answered. Plan Of Treatment Medication Medication Name Sig Start Date Stop Date Notes UNITHROID 50 mcg (0.05 mg) 1 tab(s) oral ly once a day for 90 days 05/07/2024 Treatment Notes Assessment Notes Other Assessment and Plan: 1. Hypothyroidism- Patient [...] the patient completes the blood work around [facility]. Spent 25 minutes preparing to see the patient (ex review of tests/chart), obtaining and / or reviewing separately obtained history, performing a medically appropriate examination and/or evaluation, counseling and educating the patient/family/caregiver, ordering medications, tests, or procedures, referring and communicating with other health acute care certified nursing assistant, documenting clinical information in the electronic or other health record, independently interpreting results and communicating results to the patient/family/caregiver and care coordinating patient plan. Patient alert [...] were discussed and all questions were answered. Next Appt Details Follow Up: 2 Months, Reason: labwork Progress Notes * Linda CARRASQUILLODOB:1990 ( 33 yo F)Acc No.[id number]:05/07/2024 Progress Notes Patient: Joel CALDERONLinda Childs Provider: Joel Jackson MD :1990 A ge:33 Y S ex:Female Date:05/07/2024 Address:[address] [place], [place] [id number] Subjective: * Chief Complaints: * 1 . Lab Review-text. * HPI: H ypothyroidism: 33 yo female calls in today to initiate telehealth visit to discuss progress and management of hypothyroidism Verbal consent provided by patient to proceed with this visit. This visit was performed in office via provider and patient located in primary care office with real time audio with video. at last visit we continued LT4 100 mcg daily. Patricia reports increased anxiety, itching, and nausea with a high dose of thyroid medication, leading her to halve the dose, which has alleviated her symptoms. She has a history of similar issues with levothyroxine and found Tirosint effective but not covered by insurance. Patricia's sugar levels have been in the early prediabetes range for 3-4 years despite dietary efforts. She has not had a menstrual cycle since last month and expects it in a week. A repeat JAZMINE test is planned due to a previous positive result, and she will be reminded to take her medication before a scheduled DEXA suppression test. The patient, Patricia, reports that she has not been doing well with the high dose of thyroid medication. She has experienced increased anxiety, itching, and nausea. As a result, she has been cutting the pills in half for about 2 weeks and feels fine. Patricia mentions that she had similar issues with regular levothyroxine in the past, which led to her being prescribed Synthroid. She confirms that Tirosint was the best medication for her, but insurance did not cover it. Patricia states that she has not had a menstrual cycle since last month and expects it to occur in about a week. She also reports that her sugar levels have been in the early prediabetes range for the last 3-4 years, despite watching her carbohydrate intake and rarely consuming sweets. Patricia's weight is currently 212 pounds, and she mentions that even when she weighed 175 pounds in 2019, her sugar levels remained the same. The patient denies taking any other medications besides thyroid medicine, except for Tylenol and Ibuprofen for aches and pains. She has not needed propranolol for anxiety or palpitations since starting back on thyroid medication. Patricia also reports having a few palpitations the other night, which she attributes to dehydration due to fighting a flu or cold. Patricia has not taken vitamin D supplements in a long time but has a normal vitamin D level. She inquires about retesting her JAZMINE lab, which came back as a five two years ago when she saw a neurologist for migraines. * ROS: D ERMATOLOGY: no r shayy. n o c hange in color of moles. n o?lumps. n o d ry or sensitive skin. n o h sabina. n o o eduard skin. n o?acne. n o m oles-irregular. n o m oles-change/new. n o b oils. n o dandruff. n o e xcessive body odor. n o p soriasis. n o f ungal infections. n o n ail problems. n o r edness/inflammation. n o a thlete's foot. n o s kin cancer. n o e czema. E NDOCRINOLOGY: fatigue y es. n o e xcessive sweating. n o e xcessive thirst. n o e xcessive urination. n o w eight loss. n o s leep disturbance. n o c old intolerance. n o h eat intolerence. n o t hyroid disease. i ncreased loss of hair y es. n o h x of borderline diabetes. n o d iabetes. n o a bdormal body hair. n o r heumatism. n o c hanges in skin texture.? N EUROLOGY: headache y es. n o t ingling numbness. n o s eizures. n o i nsomnia. m mario loss y es. d izziness y es. n o g ait abnormality. n o c hange in sensation anywhere on body. n o l ocalized weakness or numbness. n o b lackouts or near blackouts. n o m igraine. n o t remors.?no f ainting spells. n o h ead injury. n o s troke. O PTHALMOLOGY: no d iminished vision. n o e ye irritation. n o?drainage from eyes. b lurring of vision y es. n o s easonal eye sx. n o?dander related eye sx. n o l oss of vision. n o c ataracts. n o g lasses/contacts. n o g laucoma. n o d etached retina. n o m acular degeneration.?no e ye redness. R ESPIRATORY: shortness of breath y es. n o c hest pain. n o?wheezing. n o a sthma. n o b reathlessness when lying flat. n o p rolonged cough. n o f requent infections (bronchitis). n o e mphysema. n o c hest congestion. n o s leep apnea. A LLERGY: no r unny nose. n o s cratchy throat. n o i tchy eyes. n o e ar fullness. n o s inus congestion. n o s tuffy nose. n o w atery eyes. n o s easonal allergies. n o h ay fever. n o a llergy.?no p olyps. n o s neezing. H EMATOLOGY/LYMPH: no s wollen glands. n o f atigue. n o l oss of appetite. e asy bruising yes. n o e asy bleeding. n o a nemia. ? U ROLOGY: no d ifficulty urinating. n o b lood in urine. n o u rinary urgency. n o f requent urination. n o u rinary incontinence. n o v oiding dysfunction. n o v ulvodynia. n o d ysparaunia. n o r ecurrent UTI. n o w eak flow. n o d ribbling after urination. n o f requent bladder infections. n o k idney stone. n o k idney disease. n o u rine hesitancy.?no p ainful urination. N UTRITION: greater than body requirmemts y es. L ess than body requirements y es. a ppropriate / adequate y es, y es. C ONSTITUTIONAL: no w eight gain. n o l oss of appetite. n o?fever. w eakness y es. n o w eight loss. n ight sweats y es. n o n ausea. n o v isual changes. n o c hange in sleep patterns. h +p reviewed y es, R OS form reviewed with patient see scan for detail. n o c hange in activity capacity. E NT: no c old. n o c ough. n o c oughing blood.?no n ose bleed. h earing loss y es, D IFFICULTY HEARING. n o c hange in voice. n o s ore throat. n o r inging in ears. n o s noring. n o e ar pain. n o r unny nose. n o w atery eyes. n o s inus infection. n o ear infection. n o f acial pain. n o h oarseness. n o g oiter. n o?gum problems. n o p ostnasal drip. n o f requent nosebleeds. C ARDIOLOGY: chest pain y es. n o p alpitations. n o l eg swelling. n o d izziness. n o s hortness of breath. n o v aricose veins.?no l eg cramps. n o c old hands or feet. n o h igh blood pressure. n o ankle swelling. n o c ardiac catheterization. n o h eart attacks. n o a ngina. n o m urmurs. n o l ow blood pressure. n o l eg pain that resolves w/rest. n o p urple fingers or lips. i rregular heart rate y es. n o c ongenital heart defects. n o d izziness when standing up quickly. n o a wakening at night short of breath. G ASTROENTEROLOGY: no n ausea. h eartburn y es. n o s tool incontinence. n o r eflux. a bdominal pain y es. n o i ndigestion. n o h emorrhoids. n o h iatal hernia. n o u lcers. n o a nal fissures. n o?hepatitis. n o g allstones. n o r ed blood after bowel movements. n o v omiting. n o b loating/belching. n o d ifficulty swallowing. d iarrhea y es.?constipation y es. n o c hange in bowel habits. n o b lood in stool. ? M USCULOSKELETAL: joint swelling y es. j oint pain y es. n o l eg cramps. n o j oint stiffness. n o a rthritis. b ack pain y es. n o?muscle aches. n o m orning stiffness. n o t endinitis. n jimbo pain y es. no b ursitis. n o b one marrow biopsy. n o g out. a ctivity intolerance w eakness. n o f racture. P SYCHOLOGY: no h igh stress level. d epression y es. n o?sleep disturbances. n o r yamile sx worse with stress. n o s uicidal ideation. n o e ating disorder. n o m ental or physical abuse. a nxiety y es. n o h eadaches. d isease state y es. F EMALE REPRODUCTIVE: no h eavy periods. n o d ysparaunia. n o s exually active. n o p remenstrual syndrome. n o d ysmenorrhea. n o i nfertility. n o f requent yeast infections. n o v aginal itching. n o i ntermenstrual bleeding. n o p ost coital bleeding. n o p ostmenopausal bleeding. n o p elvic pain. n o m enstral cycle. n o v aginal discharge. n o v aginal dryness. n o o varian cysts. n o f ibroids. n o d ischarge from breast. n o abn. bleeding between cycles. n o p ostmenopausal symptoms. n o l oss of sexual interest. n o p ainful sexual intercourse. n o e ndometriosis. n o v aginal warts. n o a bnormal pap. n o i rregular periods. n o a bnormal vaginal discharge. n o h ot flashes. D IFFICULY OR PAIN WITH WALKING. * Medical History: * Medications: T aking UNITHROID 100 mcg (0.1 mg) tablet 1 tab(s) orally once a day , Taking DEXAMETHASONE 1 mg tablet 1 tab(s) orally at 10 pm night before 8 am cortisol Objective: * Vitals: H R:62, BP:110/80, Ht: 69, Wt:212, BMI: 31.3. * P ast Orders: L ab:FSH (Order Date - 04/16/2024) (Collection Date & Time - 04/16/2024 07:23 AM) Value Reference Range FSH 2.4 - mIU/mL L ab:PROGESTERONE (Order Date - 04/16/2024) (Collection Date & Time - 04/16/2024 07:23 AM) Value Reference Range PROGESTERONE 6.8 - ng/mL L ab:TESTOSTERONE, FREE (DIALYSIS) AND TOTAL,MS (Order Date 04/16/2024) (Collection Date & Time - 04/16/2024 07:23 AM) Value Reference Range TESTOSTERONE, TOTAL, MS 15 2-45 - ng/dL TESTOSTERONE, FREE 2.1 0.1-6.4 - pg/mL L ab:VITAMIN B12/FOLATE, SERUM PANEL (Order Date - 04/16/2024) (Collection Date & Time - 04/16/2024 07:23 AM) Value Reference Range FOLATE, SERUM 17.9 - ng/mL VITAMIN B12 951 515-3265 - pg/mL L ab:TSH (Order Date - 04/16/2024) (Collection Date & Time - 04/16/2024 07:23 AM) Value Reference Range TSH 3.30 - mIU/L L ab:LH (Order Date 04/16/2024) (Collection Date & Time - 04/16/2024 07:23 AM) Value Reference Range LH 5.7 - mIU/mL L ab:DEXAMETHASONE (Order Date 04/16/2024) (Collection Date & Time - 04/16/2024 07:26 AM) Value Reference Range DEXAMETHASONE <20 - ng/dL L ab:VITAMIN D, 25-HYDROXY, LC/MS/MS (Order Date 04/16/2024) (Collection Date & Time - 04/16/2024 07:23 AM) Value Reference Range VITAMIN D, 25-OH, TOTAL 36 30-100 - ng/mL L ab:T4, FREE (Order Date 04/16/2024) (Collection Date & Time - 04/16/2024 07:23 AM) Value Reference Range T4, FREE 1.1 0.8-1.8 - ng/dL L ab:ACTH, PLASMA (Order Date 04/16/2024) (Collection Date & Time - 04/16/2024 07:23 AM) Value Reference Range ACTH, PLASMA 14 6-50 - pg/mL L ab:ESTRADIOL (Order Date - 04/16/2024) (Collection Date & Time - 04/16/2024 07:23 AM) Value Reference Range ESTRADIOL 118 - pg/mL L ab:CBC (INCLUDES DIFF/PLT) (Order Date - 04/16/2024) (Collection Date & Time - 04/16/2024 07:23 AM) Value Reference Range WHITE BLOOD CELL COUNT 7.0 3.8-10.8 - Th[place] nd/uL RED BLOOD CELL COUNT 4.70 3.80-5.10 - Million /uL HEMOGLOBIN 13.0 11.7-15.5 - g/dL HEMATOCRIT 41.0 35.0-45.0 - % MCV 87.2 80.0-100.0 - fL MCH 27.7 27.0-33.0 - pg MCHC 31.7 L 32.0-36.0 - g/dL RDW 11.9 11.0-15.0 - % PLATELET COUNT 293 140-400 - Thousand/u L NEUTROPHILS 70.8 - % ABSOLUTE NEUTROPHILS 4956 5240-6250 - cells/u L LYMPHOCYTES 20.8 - % ABSOLUTE LYMPHOCYTES 2625 149-8662 - cells/uL MONOCYTES 6.0 - % ABSOLUTE MONOCYTES 420 200-950 - cells/uL EOSINOPHILS 2.0 - % ABSOLUTE EOSINOPHILS 140 15-500 - cells/uL BASOPHILS 0.4 - % ABSOLUTE BASOPHILS 28 0-200 - cells/uL MPV 10.1 7.5-12.5 - fL L ab:HEMOGLOBIN A1c (Order Date - 04/16/2024) (Collection Date & Time - 04/16/2024 07:23 AM) Value Reference Range HEMOGLOBIN A1c 5.7 H <5.7 - % of total Hg b L ab:DHEA SULFATE (Order Date - 04/16/2024) (Collection Date & Time - 04/16/2024 07:23 AM) Value Reference Range DHEA SULFATE 186 19-237 - mcg/dL L ab:T3, FREE (Order Date - 04/16/2024) (Collection Date & Time - 04/16/2024 07:23 AM) Value Reference Range T3, FREE 3.5 2.3-4.2 - pg/mL L ab:MAGNESIUM, RBC (Order Date - 04/16/2024) (Collection Date & Time - 04/16/2024 07:23 AM) Value Reference Range MAGNESIUM, RBC 5.1 4.0-6.4 - mg/dL L ab:INSULIN (Order Date 04/16/2024) (Collection Date & Time - 04/16/2024 07:23 AM) Value Reference Range INSULIN 11.2 - uIU/mL L ab:COMPREHENSIVE METABOLIC PANEL (Order Date - 04/16/2024) (Collection Date & Time - 04/16/2024 07:23 AM) Value Reference Range GLUCOSE 105 H 65-99 - mg/dL UREA NITROGEN (BUN) 11 7-25 - mg/dL CREATININE 0.73 0.50-0.97 - mg/dL BUN/CREATININE RATIO SEE NOTE: 6-22 - (calc) SODIUM 138 135-146 - mmol/L POTASSIUM 4.1 3.5-5.3 - mmol/L CHLORIDE 104 98-110 - mmol/L CARBON DIOXIDE 26 20-32 - mmol/L CALCIUM 9.5 8.6-10.2 - mg/dL PROTEIN, TOTAL 7.3 6.1-8.1 - g/dL ALBUMIN 4.5 3.6-5.1 - g/dL GLOBULIN 2.8 1.9-3.7 - g/dL (calc ) ALBUMIN/GLOBULIN RATIO 1.6 1.0-2.5 - (calc) BILIRUBIN, TOTAL 0.6 0.2-1.2 - mg/dL ALKALINE PHOSPHATASE 49 31-125 - U/L AST 15 10-30 - U/L ALT 17 6-29 - U/L EGFR 111 > OR = 60 - mL/min/1 .73m2 L ab:LIPID PANEL (Order Date - 04/16/2024) (Collection Date & Time - 04/16/2024 07:23 AM) Value Reference Range TRIGLYCERIDES 56 <150 - mg/dL CHOLESTEROL, TOTAL 136 <200 - mg/dL HDL CHOLESTEROL 46 L > OR = 50 - mg/dL LDL-CHOLESTEROL 76 - mg/dL (calc) CHOL/HDLC RATIO 3.0 <5.0 - (calc) NON-HDL CHOLESTEROL 90 <130 - mg/dL (calc) L ab:CORTISOL, TOTAL (Order Date - 04/16/2024) (Collection Date & Time - 04/16/2024 07:23 AM) Value Reference Range CORTISOL, TOTAL 13.2 - mcg/dL L ab:IRON AND TOTAL IRON BINDING CAPACITY (Order Date - 04/16/2024) (Collection Date & Time - 04/16/2024 07:23 AM) Value Reference Range IRON, TOTAL 114 40-190 - mcg/dL IRON BINDING CAPACITY 303 250-450 - mcg/dL ( calc) % SATURATION 38 16-45 - % (calc) * Examination: G eneral Examination: General n ormal, NAD, well nourished and hydrated, pleasant. Neck, thyroid : s upple. Assessment: * Assessment: 1. H ypothyroidism, unspecified - E03.9 (Primary) 2 . I rregular menstruation, unspecified - N92.6 3 . V itamin D deficiency, unspecified - E55.9 ? 4 . P rediabetes - R73.03 Plan: * Treatment: 2. O thers Notes: Assessment and Plan: 1. Hypothyroidism- Patient reports [...] the patient completes the blood work around [facility]. Spent 25 minutes preparing to see the patient (ex review of tests/chart), obtaining and / or reviewing separately obtained history, performing a medically appropriate examination and/or evaluation, counseling and educating the patient/family/caregiver, ordering medications, tests, or procedures, referring and communicating with other health acute care certified nursing assistant, documenting clinical information in the electronic or other health record, independently interpreting results and communicating results to the patient/family/caregiver and care coordinating patient plan. Patient alert [...] were discussed and all questions were answered. ? * Follow Up: 2 Months (Reason: labwork) * Billing Information: * Visit Code: 33282 Office Visit, Est Pt., Level 4. Modifiers: 95 * Procedure Codes: * CHECKER Sign off status: Completed true * Provider: Joel Jackson MD Date: Generated for Lenard hooker/Rose/Ansonitting on: 0 09/17/2024 06:06 PM COAT CHECKER History and Physical Notes * HPI (History of Present Illness) Category Sub-Category Detail Notes Category Not es Hypothyroidism 33 yo female calls in today to initiate telehealth visit to discuss progress and management of hypothyroidism Verbal consent provided by patient to proceed with this visit. This visit was performed in office via provider and patient located in primary care office with real time audio with video. at last visit we continued LT4 100 mcg daily. Patricia reports increased anxiety, itching, and nausea with a high dose of thyroid medication, leading her to halve the dose, which has alleviated her symptoms. She has a history of similar issues with levothyroxine and found Tirosint effective but not covered by insurance. Patricia's sugar levels have been in the early prediabetes range for 3-4 years despite dietary efforts. She has not had a menstrual cycle since last month and expects it in a week. A repeat JAZMINE test is planned due to a previous positive result, and she will be reminded to take her medication before a scheduled DEXA suppression test. The patient, Patricia, reports that she has not been doing well with the high dose of thyroid medication. She has experienced increased anxiety, itching, and nausea. As a result, she has been cutting the pills in half for about 2 weeks and feels fine. Patricia mentions that she had similar issues with regular levothyroxine in the past, which led to her being prescribed Synthroid. She confirms that Tirosint was the best medication for her, but insurance did not cover it. Patricia states that she has not had a menstrual cycle since last month and expects it to occur in about a week. She also reports that her sugar levels have been in the early prediabetes range for the last 3-4 years, despite watching her carbohydrate intake and rarely consuming sweets. Patricia's weight is currently 212 pounds, and she mentions that even when she weighed 175 pounds in 2019, her sugar levels remained the same. The patient denies taking any other medications besides thyroid medicine, except for Tylenol and Ibuprofen for aches and pains. She has not needed propranolol for anxiety or palpitations since starting back on thyroid medication. Patricia also reports having a few palpitations the other night, which she attributes to dehydration due to fighting a flu or cold. Patricia has not taken vitamin D supplements in a long time but has a normal vitamin D level. She inquires about retesting her JAZMINE lab, which came back as a five two years ago when she saw a neurologist for migraines. Examination Category Sub-Category Detail Notes Category Not es General Examination Neck, thyroid : supple General normal, NAD, well no urished and hydrated, pleasant
[2024-09-17 18:24] VITALS: BP 145/87; PULSE 89; RESP 18; TEMP 36.7; O2SAT 98
--- NOTE | 2024-09-17 18:42 | ED.GENADULT ---
HPI - General Adult General Chief complaint: Unspecified Stated complaint: water came out of nose and became dizzy Time Seen by Provider: 09/17/24 18:35 Focused HPI: Patient is a 33-year-old female who presents to the ER with complaints of a gush of watery nasal discharge this afternoon. She also endorses lightheadedness, pressure on her chest, and neck pain. Patient endorses a history of migraines and Keenan's. She denies any recent head trauma. GENERAL: Well-appearing, well-nourished, and in no acute distress. HEAD: Normocephalic, atraumatic. CHEST: Clear to auscultation. ?No respiratory distress. HEART: Regular rate and rhythm.? NEURO: ?Alert and oriented x3. CN intact. Patient screened in triage and initial orders placed.? ?Additional care and disposition to be based upon?diagnostic testing and treatment. Related Data Allergies Allergy/AdvReac Type Severity Reaction Status Date / Time Penicillins Allergy Unknown Anaphylaxis Verified 09/17/24 18:30 RED ONION Allergy Unknown ITCHY Uncoded 09/17/24 18:30 THROAT PMFSH Social History Social History Smoking status: Former smoker Alcohol intake: never Course Vital Signs Vital signs: Vital Signs Temperature 36.7 C 09/17/24 18:24 Pulse Rate 89 09/17/24 18:24 Respiratory Rate 18 09/17/24 18:24 Blood Pressure 145/87 H 09/17/24 18:24 Pulse Oximetry 98 09/17/24 18:24 Oxygen Delivery Room Air 09/17/24 18:24 Temperature 36.7 C 09/17/24 18:24 Pulse Rate 89 09/17/24 18:24 Respiratory Rate 18 09/17/24 18:24 Blood Pressure 145/87 H 09/17/24 18:24 Pulse Oximetry 98 09/17/24 18:24 Oxygen Delivery Room Air 09/17/24 18:24 Medical Decision Making Vital Signs Vital Signs: Vital Signs Temperature 36.7 C 09/17/24 18:24 Pulse Rate 89 09/17/24 18:24 Respiratory Rate 18 09/17/24 18:24 Blood Pressure 145/87 H 09/17/24 18:24 Pulse Oximetry 98 09/17/24 18:24 Oxygen Delivery Room Air 09/17/24 18:24 Temperature 36.7 C 09/17/24 18:24 Pulse Rate 89 09/17/24 18:24 Respiratory Rate 18 09/17/24 18:24 Blood Pressure 145/87 H 09/17/24 18:24 Pulse Oximetry 98 09/17/24 18:24 Oxygen Delivery Room Air 09/17/24 18:24 Discharge Plan Discharge Clinical Impression: Feeling light headed, Drainage from nose, Atypical chest pain Patient Disposition: Elopement After Seen by Prov Condition: Guarded Prognosis Patient Language: [place] Prescriptions: No Action diclofenac sodium 50 mg tablet,delayed release (DR/EC) 50 mg PO TID PRN (Reason: pain) Qty: 30 0RF prednisone 20 mg tablet 20 mg PO BID 3 Days Qty: 6 0RF Follow-up/Referrals: Kaiden,MD Gasper [Primary Care Provider] -
--- OUTSIDE RECORDS SUMMARY | 2024-09-17 20:49 | XMS_ITS | CONTINUITY OF CARE DOCUMENT ---
Author Name brenda gutierrez Address Unknown Organization [facility] Address [address] [facility] [address] [place] [address] Phone [phone] Care Team Providers Care Early Childhood Specialist Name Role Phone Esperanza JUAREZ, Sanju Unavailable JEWEL JUAREZ, APURVA Unavailable [phone] JEWEL JUAREZ, APURVA Unavailable [phone] PROBLEMS Condition Status Date Provider Notes Cardiovascular [...] In-person encounter Office Visit Sanju Mata MD [facility] Family History of Hypertension:CHEST PAINShortness of breathHeadacheVision changesBACK PAINScreeningTobacco use quitObesityPalpitationsExposure to SARS-associated coronavirus 7 - 8 In-person encounter Office Visit Christiana Navarrete MD [facility] GERD 2 - 2 In-person encounter Office Visit Arabella Darden MD [facility] Cardiovascular screeningFamily History of Hyperlipidemia:Family History [...] MD blood pressure, diastolic 70 mm[Hg] [facility], [facility] 100 mm[Hg] Timothy london [place] oxygen saturation, oximetry 99 % [facility] respiratory rate E&M 16 /min [facility] pulse rate 92 /min [facility] weight E&M 192 [lb_av] [facility] height E&M 68 [in_i] [facility] blood pressure, resting No Kill [facility] ALLERGIES Allergy Name Onset Date Reaction Criticality Status PENICILLIN G PROCAINE Low Criticalit y active HISTORY OF MEDICATION USE Medication Status Instructions Dates Provider Indications Com ments metoprolol succinate 25 mg tablet extended release 24 hr active TAKE 1 TABLET BY MOUTH EVERY DAY Sanju Mtaa MD Nexium 20 mg capsule,delayed release(DR/EC) completed [...] times a week - Sanju Mata MD [place]-3 Fish Oil 300-1,000 mg capsule completed Take [...] required Arabella Darden MD number of grandchildren Aarbella Page smoking status Never smoker Rosa harrington FAMILY HISTORY Family Member Condition Mother Family History of CV A or Stroke: Maternal Grandfather Family History of C oronary Artery Disease: Maternal Grandfather Family History of H ypertension: Maternal Grandfather Family History of H yperlipidemia: Maternal Grandfather Family History of D iabetes: INSURANCE PROVIDERS Payer name Policy type / Coverage type [employer] red constitution party ID [facility] [id number] ADVANCE DIRECTIVES Name Date DISCUSSED - NO [...]
--- OUTSIDE RECORDS SUMMARY | 2024-09-17 20:49 | XMS_ITS | Clinical Summary ---
Author Organization 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
--- OUTSIDE RECORDS SUMMARY | 2024-09-17 20:50 | XMS_ITS | Referral Summary ---
Author Organization [facility] Address [address] [facility] [place] [address] Care Team Providers Care Printed Circuit Boards Plasma Etcher Name Role Phone Gasper Richey MD Primary Care Provider Source Comments [facility],non-owned Affiliates and Associated Physician Practices is amultiple site organization consisting of ambulatory clinics and hospital sitesin [place], [place], [place] and [place]. This disclosure is being madepursuant to the Care Everywhere program and may not contain all information available regarding this patient. Last updated 18.[facility] Allergies Active Allergy Reactions Criticality Noted Date [...] 1 tablet by mouth once daily Active [place]-3 Fatty Acids (FISH OIL [place]ME[place]-3 PO) Take [...] of Treatment Not on file Care Teams Printed Circuit Boards Plasma Etcher Relationship Specialty Start Date End Date Gasper Richey MD [address] [address] PCP - General Internal Medicine 11/19/18
--- OUTSIDE RECORDS SUMMARY | 2024-09-17 20:50 | XMS_ITS | Clinical Summary ---
Author Organization [facility] Address [address] [facility] [place] [address] Care Team Providers Care Student Recruiter Name Role Phone Gasper Richey MD Primary Care Provider Source Comments [facility],non-owned Affiliates and Associated Physician Practices is amultiple site organization consisting of ambulatory clinics and hospital sitesin [place], [place], [place] and [place]. This disclosure is being madepursuant to the Care Everywhere program and may not contain all information available regarding this patient. Last updated 18.[facility] Allergies Active Allergy Reactions Criticality Noted Date [...] 1 tablet by mouth once daily Active [place]-3 Fatty Acids (FISH OIL OMEGA-3 PO) Take [...] age to complete this topic Care Teams Student Recruiter Relationship Specialty Start Date End Date Gasper Richey MD [address] [address] PCP - General Internal Medicine 11/19/18
--- OUTSIDE RECORDS SUMMARY | 2024-09-17 20:50 | XMS_ITS | Patient Health Summary ---
Author Organization [facility] Address [address] [facility] [place] [address] Care Team Providers Care General Machinist Name Role Phone Gasper Richey MD Primary Care Provider Note from [facility],non-owned Affiliates and Associated Physician Practices is amultiple site organization consisting of ambulatory clinics and hospital sitesin [place], [place], [place] and [place]. This disclosure is being madepursuant to the Care Everywhere program and may not contain all information available regarding this patient. Last updated 18.[facility] Allergies * Penicillins(Anaphylaxis) -High Criticality Medications * [...] 1 tablet by mouth once daily * [place]-3 Fatty Acids (FISH OIL OMEGA-3 PO) Take [...] CDT Gavin Ga MD 12/01/2018 3:04 PM [facility] [place] [facility] [address], [address], [place] [address] Test Date: 12/01/2018 Patient: Linda Carrasquillo : 1990 Physician: Gavin Ga MD Sex: Female Height: 5' 8 Ref Phys: ID#: [id number] Weight: 191 lbs. Patient Complaints: Patient is [...] titers Nucleosomes, Histones Drug-induced SLE Speckled Sm, BEHAVIORAL SERVICES TECH, SCL-70, SLE,MCTD,PSS (diffuse form), SS-A/SS-B Sjogrens Nucleolar SCL-70, PM-1/SCL High titers Scleroderma, PM/DM Centromere Centromere PSS (limited form) w/Crest syndrome variable Nuclear Dot Sp100,i34-lfpoci Primary Biliary Cirrhosis Nuclear GP210, Primary Biliary Cirrhosis Membrane harleen A,B,C 11/19/2018 2:39 PM CDT 11/19/2018 Narrative Resulting Agency Comment Lab Testing performed at: [facility] [address] [phone] Gavin Ga MD LAB - PATHOLOGY/CYTO LOGY ORDERABLES Performing Organization Address [facility] de Phone Number [facility] INSURANCE BILL [address] [place] [address] * IMMUNOFIXATION (11/19/2018 2:39 PM CDT) Immunofixation Result [facility] INSURANCE BILL Comment:No monoclonality det ected. IgG Quantitative 1,258 700 - 1,600 mg/dL [facility] INSURANCE BILL IgA Quantitative 155 87 - 352 mg/dL [facility] INSURANCE BILL IgM Quantitative 104 26 - 217 mg/dL [facility] INSURANCE BILL Blood BLOOD SPECIMEN / Unknown 11/19/2018 2:39 PM CDT 11/19/2018 Narrative Resulting Agency Comment Lab Testing performed at: [facility] [address] [facility] [phone] Gavin Ga MD LAB - CHEMISTRY [place] [facility] INSURANCE BILL [address] [place] [address] * ANCA VASCULITIS PANEL (11/19/2018 2:39 PM CDT) Anti-myeloperoxid ase (MPO) Antibody <9.0 0.0 - 9.0 U/mL [facility] INSURANCE BILL Anti-proteinase 3 (NJ-3) Abs <3.5 0.0 - 3.5 U/mL [facility] [...] up testing of positive sera with both NJ-3 and MPO-ANCA enzyme immunoassays. As many as [...] Resulting Agency Comment Lab Testing performed at: [employer] [id number] Gavin Ga MD LAB - CHEMISTRY [place] [facility] INSURANCE BILL [address] [place] [address] * RHEUMATOID FACTOR BLOOD QUANTITATIVE (11/19/2018 2:39 PM CDT) Rheumatoid Factor <10.0 0.0 - 13.9 IU/mL [facility] INSURANCE BILL Blood BLOOD SPECIMEN / Unknown 11/19/2018 2:39 PM CDT 11/19/2018 Narrative Resulting Agency Comment Lab Testing performed at: [facility] [address] [facility] [phone] Gavin Ga MD LAB - CHEMISTRY [place] Performing Organization Address City/[facility]/ZIP Co de Phone Number [facility] INSURANCE BILL [address] [place] [address] * (ABNORMAL) JAZMINE BLOOD SCREEN W/REFLEX TITER (11/19/2018 2:39 PM CDT) JAZMINE Positive(A ) [facility] INSURANCE BILL Comment: Negative <1:80 Borderline 1:80 Positive >1:80 Blood BLOOD SPECIMEN / Unknown 11/19/2018 2:39 PM CDT 11/19/2018 Narrative Resulting Agency Comment Lab Testing performed at: [facility] [place] [phone] Gavin Ga MD LAB - CHEMISTRY [place] Performing Organization Address [facility] Co de Phone Number [facility] INSURANCE BILL [address] [place] [address] * JARAD ANTIBODY PANEL (11/19/2018 2:39 PM CDT) BEHAVIORAL SERVICES TECH Antibody <0.2 0.0 - 0.9 AI [facility] INSURANCE BILL [place] (JARAD) Antibody <0.2 0.0 - 0.9 AI [facility] INSURANCE BILL Sjogren's Antibodies (SSA) <0.2 0.0 - 0.9 AI [facility] INSURANCE BILL Sjogren's Antibodies (SSB) <0.2 0.0 - 0.9 AI [facility] INSURANCE BILL Blood BLOOD SPECIMEN / Unknown 11/19/2018 2:39 PM CDT 11/19/2018 Narrative Resulting Agency Comment Lab Testing performed at: [facility] [address] [facility] [phone] Gavin Ga MD LAB - CHEMISTRY [place] Performing Organization Address City/[facility]/ZIP Co de Phone Number [facility] INSURANCE BILL [address] [place] [address] * VITAMIN B12 (11/19/2018 2:39 PM CDT) Vitamin B12 999 232 - 1,245 pg/mL [facility] INSURANCE BILL Blood BLOOD SPECIMEN / Unknown 11/19/2018 2:39 PM CDT 11/19/2018 Narrative Resulting Agency Comment [facility]: [facility] [address] [facility] [id number] Gavin Ga MD LAB - CHEMISTRY [place] [facility] INSURANCE BILL [address] [place] [address] * (ABNORMAL) TSH (11/19/2018 2:39 PM CDT) TSH 0.272(L) 0.450 - 4.500 uIU/mL [facility] INSURANCE BILL Blood BLOOD SPECIMEN / Unknown 11/19/2018 2:39 PM CDT 11/19/2018 Narrative Resulting Agency Comment Lab Testing performed at: [facility] [address] [facility] [phone] Gavin Ga MD LAB - CHEMISTRY [place] Performing Organization Address City/[facility]/ZIP Co de Phone Number [facility] INSURANCE BILL [address] [place] [address] * T4 TOTAL (11/19/2018 2:39 PM CDT) T4 Total 9.1 4.5 - 12.0 ug/dL [facility] INSURANCE BILL Blood BLOOD SPECIMEN / Unknown 11/19/2018 2:39 PM CDT 11/19/2018 Narrative Resulting Agency Comment Lab Testing performed at: [facility] [facility] [id number] Gavin Ga MD LAB - CHEMISTRY [place] [facility] INSURANCE BILL [address] [place] [address] * PROTEIN ELECTROPHORESIS BLOOD (11/19/2018 2:39 PM CDT) Protein Total 7.9 6.0 - 8.5 g/dL [facility] INSURANCE BILL Albumin 4.4 2.9 - 4.4 g/dL [facility] INSURANCE BILL Alpha-1 Globulin 0.3 0.0 - 0.4 g/dL [facility] INSURANCE BILL Wexeq-5-Fqhzemod 0.8 0.4 - 1.0 g/dL [facility] INSURANCE [...] scan will follow via computer, mail, or coat agent delivery. P E Interpretation, S [facility] INSURANCE BILL Comment: The SPE pattern appears essentially unremarkable. Evidence of monoclonal protein is not apparent. Blood BLOOD SPECIMEN / Unknown 11/19/2018 2:39 PM CDT 11/19/2018 Narrative Resulting Agency Comment Lab Testing performed at: [facility] [address] [facility] [phone] Gavin Ga MD LAB - CHEMISTRY [place] [facility] INSURANCE BILL [address] [place] [address] * GROSS + MICRO EXAM (06/11/2007 12:25 PM STATISTICAL GENETICIST) Result CASE NUMBER [id number] [facility] PATH REPORT Comment: ORDERING PHYSICIAN [...] and interpreted by the attending (teaching) pathologist. Double Backer SHANE MARTELL A RESIDENT IN PATHOLOG Antoni Sanchez M.D. PATHOLOGIST Tom Durand M.D. ELECTRONICALLY MADIHA TOM DURAND MISCELLANEOUS SAMPLES / Unknown 06/11/2007 12:25 PM STATISTICAL GENETICIST 06/11/2007 1:15 PM STATISTICAL GENETICIST Historical Provider LAB - PATHOLOGY/C YTOLOGY ORDERABLES [facility] LAB PATH REPORT Care Teams General Machinist Relationship Specialty Start Date End Date Gasper Richey MD [address] [address] PCP - General Internal Medicine 11/19/18
--- NOTE | 2024-09-17 23:57 | PC.NURSE ---
Pt ambulatory to triage desk stating she would be leaving and going to an urgent care d/t wait times. Pt educated on importance of following up with pcp or other ER if sx persist. pt ambulatory out of dept.
== END 2024-09-17 20:43 | disposition left against medical advice (07) ==
PROVIDERS: Emergency Provider Registered Nurse; PCP Internal Medicine
DX: R42 Dizziness and giddiness (principal); J34.89 Other specified disorders of nose and nasal sinuses; R07.89 Other chest pain; E06.3 Autoimmune thyroiditis
CPT/HCPCS: 70450; 99284

== ENCOUNTER 2024-09-20 16:07 | Emergency (ER) | payer BC, SELFPAY ==
--- NOTE | ~2024-09-20 | CT_ITS ---
EXAMINATION: CT soft tissue neck w con DATE: 09/20/2024 19:59 INDICATION: Headache, clear rhinorrhea TECHNIQUE: Computed tomography (CT) of the neck was performed with 75 mL Omnipaque-350 intravenous co ntrast. Automated exposure control and iterative reconstruction technique were employed. The dose-erick gth product was 497.83 mGy-cm. COMPARISON: CT brain, same date FINDINGS: The thyroid gland is unremarkable. The submandibular and parotid glands are symmetric. There is n o cervical lymphadenopathy. There are no masses identified. The superior mediastinum is unremarka ble. The airway is unremarkable. Parapharyngeal and pre-glottic fat planes are preserved. Jane l-appearing enhancing neck vessels. The orbits are unremarkable. Visualized sinuses and mastoid ai r cells are well aerated. Rightward osseous nasal septal deviation. Visualized lung parenchyma is ayala ar. Regional bones are normal. IMPRESSION: Unremarkable CT soft tissue neck findings. Reviewed, dictated and finalized at location K.
--- NOTE | ~2024-09-20 | CT_ITS ---
EXAMINATION: CT brain wo con DATE: 09/20/2024 19:48 INDICATION: arreola, clear nasal discharge . TECHNIQUE: Computed tomography (CT) of the head was performed without intravenous contrast. The mA wa s adjusted according to patient size. Iterative reconstruction technique was employed. The dose-lengt h product was 681.00 mGy-cm. COMPARISON: 09/17/2024. FINDINGS: No acute intracranial hemorrhage or extra-axial fluid collection. No hydrocephalus, mass, or herniation. No acute ischemic infarct. Unremarkable dural venous sinus attenuation. No acute osseous abnormality. Minimal sphenoid mucosal thickening, the remaining aerated spaces are clear. Empty sella chest clear. Rightward nasal septal deviation. IMPRESSION: No acute intracranial process. Reviewed, dictated and finalized at location K.
[2024-09-20 16:10] VITALS: BP 145/90; PULSE 88; RESP 18; TEMP 36.6; O2SAT 100
[2024-09-20 17:01] VITALS: BP 120/75; PULSE 80; RESP 18; O2SAT 98
--- NOTE | 2024-09-20 17:10 | PC.NURSE ---
pt reports that she had an episode where she was sitting and felt faint and a watery discharge came out of her nose, she couldn't lift her arms, pt got flushed, and felt like she was going to pass out.
--- OUTSIDE RECORDS SUMMARY | 2024-09-20 18:45 | XMS_ITS | Patient Health Record ---
Author Organization [facility] Address [address] [address] Care Team Providers Care Switch Coupler Name Role Phone Myriam Jackson Unavailable [phone] Migration, Provider Unavailable Unavailable Allergies Allergen (clinical drug ingredient) Drug/Non Drug Allergy documented on EMR Reaction Allergy Type Onset Date Status Penicillin Unknown Drug Allergy Active Results Component Value Reference Range Notes COMPREHENSIVE METABOLIC PANE L Reviewed date:04/18/2024 08:25:29 PM Interpretation: Performing Lab:[place] [facility], [address] [place], [address] Rebecca Becker MD Notes/Report: FASTING:YES FASTING: YES VITAMIN D, 25-HYDROXY, LC/MS /MS Reviewed date:04/18/2024 08:41:48 PM Interpretation: Performing Lab:KS [facility], [address] [place], [address] Rebecca Becker MD Notes/Report: FASTING:YES FASTING: YES ACTH, PLASMA Reviewed date:04/23/2024 10:05:32 PM Interpretation: Performing Lab:AMD, [facility], [address], [place], [address] Sebastian Zheng M.D.,PhD Notes/Report: FASTING:YES FASTING: YES DEXAMETHASONE Reviewed date:04/26/2024 12:37:42 PM Interpretation: Performing Lab:EZ, [facility],, [address] [place], [address] Kirsten Ray MD,PhD,CHUY Notes/Report: FASTING:YES MULTIPLE TESTING PRIORITIES; ROUTINE TESTING TO FOLLOW. FASTING: YES DEXAMETHASONE <20 Reference Ranges for Dexamethasone: Baseline: Less than 20 ng/dL 1 mg dexamethasone overnight: 180-550 ng/dL (8:00-10:00 AM) This test was developed and its analytical performance characteristics have been determined by [employer]. It has not been cleared or approved by FDA. This assay has been validated pursuant to the CLIA regulations and is used for clinical purposes. T3, FREE Reviewed date:04/20/2024 10:48:43 PM Interpretation: Performing Lab:[facility], [address], [place], [address] Rebecca Becker MD Notes/Report: FASTING:YES FASTING: YES CORTISOL, TOTAL Reviewed date:04/18/2024 08:24:40 PM Interpretation: Performing Lab:[facility], [address], [place], [address] Rebecca Becker MD Notes/Report: FASTING:YES FASTING: YES DHEA SULFATE Reviewed date:04/18/2024 08:24:32 PM Interpretation: Performing Lab:[facility], [address], [place], [address] Rebecca Becker MD Notes/Report: FASTING:YES FASTING: YES ESTRADIOL Reviewed date:04/18/2024 08:23:36 PM Interpretation: Performing Lab:[facility], [address], [place], [address] Rebecca Becker MD Notes/Report: FASTING:YES FASTING: YES FSH Reviewed date:04/18/2024 08:24:25 PM Interpretation: Performing Lab:[facility], [address], [place], [address] Rebecca Becker MD Notes/Report: FASTING:YES FASTING: YES HEMOGLOBIN A1c Reviewed date:04/19/2024 07:48:21 PM Interpretation: Performing Lab:[facility], [address], [place], [address] Rebecca Becker Notes/Report: FASTING:YES FASTING: YES INSULIN Reviewed date:04/18/2024 08:24:18 PM Interpretation: Performing Lab:[facility], [address], [place], [address] Rebecca Becker MD Notes/Report: FASTING:YES FASTING: YES LH Reviewed date:04/18/2024 08:24:10 PM Interpretation: Performing Lab:[facility], [address], [place], [address] Rebecca Becker MD Notes/Report: FASTING:YES FASTING: YES CBC (INCLUDES DIFF/PLT) Reviewed date:04/18/2024 08:24:55 PM Interpretation: Performing Lab:[facility], [address], [place], [address] Rebecca Becker MD Notes/Report: FASTING:YES FASTING: YES VITAMIN B12/FOLATE, SERUM PA KELSEY Reviewed date:04/18/2024 08:23:27 PM Interpretation: Performing Lab:[facility], [address], [place], [address] Rebecca Becker MD Notes/Report: FASTING:YES FASTING: YES PROGESTERONE Reviewed date:04/18/2024 08:23:59 PM Interpretation: Performing Lab:[facility], [address], [place], [address] Rebecca Becker MD Notes/Report: FASTING:YES FASTING: YES IRON AND TOTAL IRON BINDING CAPACITY Reviewed date:04/18/2024 08:25:38 PM Interpretation: Performing Lab:[facility], [address], [place], [address] Rebecca Becker MD Notes/Report: FASTING:YES FASTING: YES LIPID PANEL Reviewed date:04/18/2024 08:25:47 PM Interpretation: Performing Lab:[facility], [address], [place], [address] Rebecca Becker MD Notes/Report: FASTING:YES FASTING: YES T4, FREE Reviewed date:04/18/2024 08:23:51 PM Interpretation: Performing Lab:[facility], [facility], [address] [place], [address] Rebecca Becker MD Notes/Report: FASTING:YES FASTING: YES TSH Reviewed date:04/18/2024 08:23:43 PM Interpretation: Performing Lab:[facility], [facility], [address] [place], [address] Rebecca Becker MD Notes/Report: FASTING:YES FASTING: YES TESTOSTERONE, FREE (DIALYSIS ) AND TOTAL,MS Reviewed date:04/23/2024 07:34:23 AM Interpretation: Performing Lab:[facility], [facility], [address] [place] [address], [address], [address] Celso Gallegos MD,PhD Notes/Report: FASTING:YES FASTING: YES TESTOSTERONE, TOTAL, MS 15 2-45 ng/dL For additional information, please refer to https://education.Qualys.Meetmeals/faq/NOU439 (This link is being provided for informational/educational purposes only.) (Note) This test was developed and its analytical performance characteristics have been determined by [employer]. It has not been cleared or approved by the FDA. This assay has been validated pursuant to the CLIA regulations and is used for clinical purposes. TESTOSTERONE, FREE 2.1 0.1-6.4 pg/mL (Note) This test was developed and its analytical performance characteristics have been determined by [employer]. It has not been cleared or approved by the FDA. This assay has been validated pursuant to the CLIA regulations and is used for clinical purposes. [facility] [address] [place] [address],[address] [place] [id number] Celso Gallegos MD, PhD MAGNESIUM, RBC Reviewed date:04/23/2024 07:34:38 AM Interpretation: Performing Lab:[facility], [facility], [address] [place] [address] [address], [address], [place], [address] Celso Gallegos MD,PhD Notes/Report: FASTING:YES FASTING: YES MAGNESIUM, RBC 5.1 4.0-6.4 mg/dL (Note) This test was developed and its analytical performance characteristics have been determined by [employer]. It has not been cleared or approved by the FDA. This assay has been validated pursuant to the CLIA regulations and is used for clinical purposes. F [facility] [address] [place] [address],[address] [facility] [address] Celso Gallegos MD, PhD Reason For Referral No Information Medications Medication SIG (Take, Route, Frequency, Duration) Notes Start Date End Date Status dexAMETHasone 1 MG 1 tab(s) orally at 10 pm night before 8 am cortisol for 1 days 03/19/2024 Active Unithroid 100 MCG (0.1 MG) 1 TAB(S) ORALLY ONCE A DAY for 30 DAYS *Please review and pick correct strength-formulatio n from [employer] options. If intended option is not shown, discontinue and re-order from Quick Search* 03/19/2024 Active Unithroid 50 MCG (0.05 MG) 1 TAB(S) ORALLY ONCE A DAY for 90 DAYS *Please review and pick correct strength-formulatio n from [employer] options. If intended option is not shown, discontinue and re-order from Quick Search* 05/07/2024 Active Problems Problem Type SNOMED Code ICD Code Onset Dates Problem Status W/U Status Risk Notes Problem Vitamin D deficiency (61638055) Vitamin D deficiency, unspecified (E55.9) Active confirmed Problem Hypothyroidism (25619374) Hypothyroidism, unspecified (E03.9) Active confirmed Problem Irregular menstruation (91704244) Irregular menstruation, unspecified (N92.6) Active confirmed Vital Signs Heart Rate 62 /min 05/07/2024 Blood pressure diastolic 80 mm Hg 05/07/2024 Height 69 in 05/07/2024 Blood pressure systolic 110 mm Hg 05/07/2024 Weight 212 lbs 05/07/2024 BMI 31.3 kg/m2 05/07/2024 Encounters Encounter Location Date Provider Diagnosis [facility] [address] [place] [address] 05/29/2024 Provider Migration Hypothyroidism, unspecified E03.9 [facility] - Myriam Jackson [address] [place] [address] 03/19/2024 Myriam Jackson Hypothyroidism, unspecified E03.9 ; Impaired fasting glucose R73.01 ; Other fatigue R53.83 ; Vitamin D deficiency, unspecified E55.9 and Irregular menstruation, unspecified N92.6 [facility] Myriam Jackson [address] [place] [address] 03/19/2024 [facility] Myriam Jackson [address] [place] [address] 05/19/2024 [facility] Myriam Jackson [address] [place] [address] 05/07/2024 Myriam Jackson Hypothyroidism, unspecified E03.9 ; [...] procedures, referring and communicating with other health career development coordinator, documenting clinical information in the electronic or [...] the patient completes the blood work around [facility]. Spent 25 minutes preparing to see the patient (ex review of tests/chart), obtaining and / or reviewing separately obtained history, performing a medically appropriate examination and/or evaluation, counseling and educating the patient/family/car egiver, ordering medications, tests, or procedures, referring and communicating with other health career development coordinator, documenting clinical information in the electronic or [...] Date Coverage End Date [facility] [address] [place] [address] [id number] Linda Carrasquillo Self - patient is the insured Medical (General) History Medical History History ICD Code hashimotos arthritus PMDD Surgical History Surgery Date(Month/Year) KNEE SCOPE SURGERY 10/04
--- OUTSIDE RECORDS SUMMARY | 2024-09-20 18:45 | XMS_ITS | Clinical Summary ---
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
--- OUTSIDE RECORDS SUMMARY | 2024-09-20 18:45 | XMS_ITS | CONTINUITY OF CARE DOCUMENT ---
Author Name brenda gutierrez Address Unknown Organization [facility] Address [address] [place] [address] Phone [phone] Care Team Providers Care Child Care Centre Manager Name Role Phone Esperanza JUAREZ, Sanju Unavailable JEWEL JUAREZ, APURVA Unavailable JEWEL JUAREZ, APURVA Unavailable [phone] PROBLEMS Condition Status Date Provider Notes Cardiovascular [...] In-person encounter Office Visit Sanju Mata MD [facility] Family History of Hypertension:CHEST PAINShortness of breathHeadacheVision changesBACK PAINScreeningTobacco use quitObesityPalpitationsExposure to SARS-associated coronavirus 7 - 8 In-person encounter Office Visit Christiana Navarrete MD [facility] GERD 2 - 2 In-person encounter Office Visit Arabella Darden MD [facility] Cardiovascular screeningFamily History of Hyperlipidemia:Family History [...] Body Mass Index (Ratio) 29.49 kg/m2 Dominique Navrarete MD blood pressure, diastolic 70 mm[Hg] Pravin Maki blood pressure, systolic 110 mm[Hg] Shruti audrey Maki respiratory rate E&M 16 /min Korina Maki pulse rate 76 /min Korina rodriguez oxygen saturation, oximetry 98 % Korina Maki weight E&M 194 [lb_av] Korina rodriguez blood pressure, cuff size regular Cy nthia Glynn height E&M 68 [in_i] Korina rodriguez temperature site temporal Arianneanibal Prery sleshaila temperature E&M 97.7 [degF] Arianne Tanks syeda Body Mass Index (Ratio) 29.19 kg/m2 Ulysses Darden MD blood pressure, diastolic 70 mm[Hg] [facility], systolic 100 mm[Hg] Timothy london [facility] oxygen saturation, oximetry 99 % [facility] respiratory rate E&M 16 /min [facility] pulse rate 92 /min [facility] weight E&M 192 [lb_av] [facility] height E&M 68 [in_i] [facility] blood pressure, resting No [facility] ALLERGIES Allergy Name Onset Date Reaction Criticality [...] times a week - Sanju Mata MD [place]-3 Fish Oil 300-1,000 mg capsule completed Take [...] Payer name Policy type / Coverage type [place] red [employer] party ID [facility] [id number] ADVANCE DIRECTIVES Name Date DISCUSSED - NO [...]
--- OUTSIDE RECORDS SUMMARY | 2024-09-20 18:45 | XMS_ITS ---
Author Organization [facility] Address [address] [place] [address] Care Team Providers Care Wire Dropper Name Role Phone Myriam Jackson [phone] Encounters Encounter Location Date Provider Diagnosis [facility] - Myriam Jackson [address] [place] [address] 05/19/2024 Myriam Jackson Plan Of Treatment No Information Progress Notes * Linda CARRASQUILLODOB:1990 ( 33 yo F)Acc No.[id number]:05/19/2024 Patient: Joel Linda STROUD :1990 A ge:33 Y S ex:Female Address:[address] [place] [address] * true * Date: Generated for Lenard hooker/Rose/eTransmitting on: 0 09/20/2024 06:45 PM CDT
--- OUTSIDE RECORDS SUMMARY | 2024-09-20 18:46 | XMS_ITS ---
Author Organization [facility] Address [address] [address] Care Team Providers Care Internet Marketing Intern Name Role Phone Manuel Myriam Yao [phone] REASON FOR VISIT Lab Review-text Medications Medication [...] Provider Diagnosis [facility] - Myriam Jackson [address] [place] [address] 05/07/2024 Myriam Jackson Hypothyroidism, unspecified E03.9 ; [...] procedures, referring and communicating with other health animal care technician, documenting clinical information in the electronic or [...] the patient completes the blood work around [facility]. Spent 25 minutes preparing to see the patient (ex review of tests/chart), obtaining and / or reviewing separately obtained history, performing a medically appropriate examination and/or evaluation, counseling and educating the patient/family/caregiver, ordering medications, tests, or procedures, referring and communicating with other health animal care technician, documenting clinical information in the electronic or [...] * Linda CARRASQUILLODOB:1990 ( 33 yo F)Acc No.[id number]:05/07/2024 Progress Notes Patient: Joel CALDERONLinda Childs Provider: Joel Jackson MD :1990 A ge:33 Y S ex:Female Date:05/07/2024 Address:[address] [place], [place] [id number] Subjective: * Chief Complaints: * 1 . [...] for about 2 weeks and feels fine. Patircia mentions that she had similar issues with [...] FOLATE, SERUM 17.9 - ng/mL VITAMIN B12 000 540-2084 - pg/mL L ab:TSH (Order Date - [...] NEUTROPHILS 70.8 - % ABSOLUTE NEUTROPHILS 4956 [phone] - cells/u L LYMPHOCYTES 20.8 - % ABSOLUTE LYMPHOCYTES [phone] - cells/uL MONOCYTES 6.0 - % ABSOLUTE [...] the patient completes the blood work around [facility]. Spent 25 minutes preparing to see the patient (ex review of tests/chart), obtaining and / or reviewing separately obtained history, performing a medically appropriate examination and/or evaluation, counseling and educating the patient/family/caregiver, ordering medications, tests, or procedures, referring and communicating with other health animal care technician, documenting clinical information in the electronic or [...] labwork) * Billing Information: * Visit Code: 92315 Office Visit, Est Pt., Level 4. Modifiers: 95 * Procedure Codes: * N RESOURCES PSYCHOLOGIST Sign off status: Completed true * Provider: Joel Jackson MD Date: Generated for Lenard hooker/Rose/Ansonitting on: 0 09/20/2024 06:45 PM CDT History and Physical Notes * HPI (History [...]
--- OUTSIDE RECORDS SUMMARY | 2024-09-20 18:46 | XMS_ITS ---
Author Organization [facility] Address [address] [address] Care Team Providers Care Welfare Eligibility Interviewer Name Role Phone Migration, Provider Unavailable Unavailable [...] review and pick correct strength-formulatio n from [employer] options. If intended option is not shown, discontinue and re-order from Quick Search* 03/19/2024 Active Unithroid 50 MCG (0.05 MG) 1 TAB(S) ORALLY ONCE A DAY for 90 DAYS *Please review and pick correct strength-formulatio n from [facility] options. If intended option is not shown, discontinue and re-order from Quick Search* 05/07/2024 Active Encounters [facility] Date [facility] [address] [address] 05/29/2024 Provider Migration Hypothyroidism, unspecified E03.9 Assessments [...] * Linda CARRASQUILLODOB:1990 ( 33 yo F)Acc No.[id number]:05/29/2024 Patient: Linda MCCRACKEN Provider: Lucia Gómez :1990 A ge:33 Y S ex:Female Date:05/29/2024 Address:[address] [place] [address] Subjective: * Chief Complaints: * 1 . [...] Electronic signature of Segun pires Migration on 09/20/2024 at 06:45 PM CDT Sign off status: Pending * Provider: Lucia Gómez Date: 07/29/2023 Generated for Lenard hooker/Rose/Ansonitting on: 0 09/20/2024 06:45 PM CDT
--- OUTSIDE RECORDS SUMMARY | 2024-09-20 18:46 | XMS_ITS | Clinical Summary ---
Author Organization [facility] Address [address] [place] [address] Care Team Providers Care Recycle Coordinator Name Role Phone Gasper Richey MD Primary Care Provider Source Comments [facility],non-owned Affiliates and Associated Physician Practices is amultiple site organization consisting of ambulatory clinics and hospital sitesin [place], [place], [place] and [place]. This disclosure is being madepursuant to the Care Everywhere program and may not contain all information available regarding this patient. Last updated 18.[facility] Allergies Active Allergy Reactions Criticality Noted Date [...] 1 tablet by mouth once daily Active [place]-3 Fatty Acids (FISH OIL OME[place]-3 PO) Take [...] age to complete this topic Care Teams Recycle Coordinator Relationship Specialty Start Date End Date Gasper Richey MD [address] [address] PCP - General Internal Medicine 11/19/18
--- OUTSIDE RECORDS SUMMARY | 2024-09-20 18:46 | XMS_ITS | Data Portability ---
Author Organization [place] [facility] [place] [facility], Main Office Address [address] [place] [address] Care Team Providers Care It Senior Software Engineer Java Name Role Phone GASPER RICHEY Primary Care Provider GASPER RICHEY Referring Provider Assessment Encounter Date Assessment Date [...] Lab vitamin D, 25-hydroxy, total, serum 2023 [facility] [email or web address] [place] [address] (Lab), [address] [place], [address], 09:01:15 lipid panel, serum 20[address] [facility] [address] (Lab), [address] [place], [address], 09:01:15 TSH + free T4, serum 2023 [facility] [address] [place] [address] (Lab), [address] [place], [address], 09:16:49 CMP, serum or plasma 2023 [facility]24 [email or web address] [address] [place] [address] (Lab), [address] [place], [address], 09:01:15 CBC w/ auto diff 2023 [facility]24 [email or web address] [address] [place] [address] (Lab), [address] [place], [address], 09:01:15 Referral orthopedic surgeon referral 2023 [facility] [email or web address] Cr Baca MD, [address] [facility] [address], [facility], [place], [address], 4 09:17:14 obstetricia n and gynecologis t referral 2023 024 [email or web address] 6 Michelle Oseguera MD, [address], [address], [place], [address], 5 08:51:17 Procedures None recorded. Surgeries None recorded. Imaging US, thyroid - no auth required 2023 024 [email or web address] Not available 4 09:39:37 Medication Orders valacyclovi r 500 mg tablet 2023 024 [facility], [address] [facility], [place], [address], 4 12:21:58 Patient TargetsNo targets recorded. Patient InstructionsNo instructions recorded. Reason for Referral [facility] Referral for Gynecologic examination [...] ast [facility] [address] [place] [address] Patien t Name: FOREIGN LINDA Access ion #: [id number] Sex: F : 1990 9 Dictat [...] the juncti on of the body and cellars supervisor ior horn of the latera l menisc us. Tendon s and ligame nts: The tendon s in the knee are intact . The extens or mechan ism is intact . The anteri or and cellars supervisor ior crucia te ligame nts are intact [...] 1 [facility] [address] [address] Patien t Name: LINDA CARRASQUILLO Access ion #: [id number] Sex: F : 1990 9 Dictat ed By: Je Louis ms Attend ing Physic marquez: KIKI ARECHIGA Orderi ng Physic marquez: HAWK SWANSON Exam Date: 2023 07:59 AM Exam Name: MRI KNEE LT WO Admitt ing Diagno sis(es ): 2. Mild subcho ndral bone marrow edema in the centra l weight bearin g medial femora l condyl e. No high-g rade articu lar cartil age loss. 3. Intras ubstan ce degene ration /frayi ng at the juncti on of the cellars supervisor ior horn and body of the latera l menisc us. Electr onical ly Signed by: Je Louis ms at 2023 09:28: 41 AM Page 2 [email or web address] [facility] (Imaging) [address] [place], [address], 08/22/2023 11:20:24 08/22/19 24 08/22/2023 imagi ng/di agnos tic resul t No observ ation record ed. [facility] [address] [place], [address], 08/22/2023 10:32:13 03/08/20 24 03/08/2024 XR, chest , 1 view No observ ation record ed. [email or web address] [facility] [address] [place], [address], 03/10/2024 12:33:59 03/09/20 24 03/08/2024 CT, cervi nory spine , w/o contr ast No observ ation record ed. [email or web address] [facility] [address] [place], [address], 03/10/2024 12:34:18 09/18/19 25 09/17/2024 imagi ng/di agnos tic resul t No observ ation record ed. [address], [place], [address], 09/17/2024 20:58:23 Result Notes None recorded. Problems Name Problem SNOMED Code Status Onset Date Resolution Date Notes Provider Name and Address Organization Details Recorded Time Chronic back pain 577202315 Active Not Available [facility] 4 08:52:38 Acute sinusitis 35085220 Active 2021 Not Available [facility] 4 08:52:38 Pain in throat 059940621 Active 2021 Not Available [facility] 4 08:52:38 Thyroid nodule 596638012 Active 2021 Not Available [facility] 4 08:52:38 Low back pain 561876922 Active Not Available [facility] 4 08:52:38 Pain in left knee Active 2017 Not Available [facility] 4 08:52:38 Impaired fasting glycemia 558514241 Active 2021 Not Available [facility] 4 08:52:38 Hypothyroi dism 03532599 Active 2019 Not Available [facility] 4 08:52:38 Nausea 337604971 Active Not Available [facility] 4 08:52:38 Viral syndrome 826556467 Active 2021 Not Available [facility] 4 08:52:38 Herpes zoster 2320676 Active Not Available [facility] 4 08:52:38 Anxiety 45989245 Active Not Available [facility] 4 08:52:38 Candidiasi s of vagina 05652954 Active 2021 Not Available [facility] 4 08:52:38 Weight gain 1633100 Active 2021 Not Available [facility] 4 08:52:38 Vaginitis 85915681 Active 2022 Not Available [facility] 4 08:52:38 Liver enzymes level above reference range 255449292 Active 2022 Not Available [facility] 4 08:52:38 Gastroesop hageal reflux disease without esophagiti s 826541011 Active 2022 Not Available [facility] 4 08:52:38 Generalize d anxiety disorder 66814556 Active 2022 Not Available [facility] 4 08:52:38 Migraine 51844789 Active 2022 Not Available [facility] 4 08:52:38 Vitamin D deficiency 71625675 Active 2022 Not Available [facility] 4 08:52:38 Toothache 67977945 Active 2022 Not Available [facility] 4 08:52:38 Pain of left knee joint 1001159641249 07 Active 2023 Not Available [facility] 4 08:52:38 Pain of right knee joint 7079920257847 00 Active 2023 Not Available [facility] 4 08:52:38 Derangemen t of left knee 1074723381891 9108 Active 2023 Not Available [facility] 4 08:52:38 Tear of meniscus of knee 478620917 Active 2023 FILI Peguero [address], [place], [address] , [facility] [employer] [facility] [employer] [facility] 4 14:17:47 Tear of medial meniscus of knee 135177227 Active 2023 Bear Vásquez MD [address], [place], [address] , [employer] [facility] [employer] [facility] 4 00:39:20 Upper respirator y infection 10062191 Active 2023 Nadine Lee MA null, [place] [employer] [facility] [employer] [facility] 4 14:54:31 Candidiasi s of mouth 34484770 Active 2023 Nadine Lee MA null, [employer] [facility] [employer] [facility] 4 14:45:41 Herpes labialis 8049978 Active 2023 Gasper portillo MD [address], [place], [address] , [facility] [employer] [facility] [employer] [facility] 4 12:17:39 Infection of tooth 201686859 Active 2024 Jeana Davis CMA null, [employer] [facility] [employer] [facility] 5 17:11:46 Problem Notes None recorded. Procedures Surgical History Date Name Laterality Status Provider Name and Address Organization Details Recorded Time Knee arthroscopy /surgery completed WALLACE Trejo [facility] [employer] [facility] 12/16/2023 11:29:13 Imaging Results Imaging Date Name Status [facility]Modified by [facility] Details LastModified Time 08/22/2023 MRI, knee, w/o contrast completed [address] (Imaging) [address], [place], [address], 08/22/2023 11:20:24 08/22/2023 imaging/diagn ostic result active [facility] [address] [place], [address], 08/22/2023 10:32:13 03/08/2024 XR, chest, 1 view active [address] [place], [address], 03/10/2024 12:33:59 03/08/2024 CT, cervical spine, w/o contrast active [address] [place], [address], 03/10/2024 12:34:18 09/17/2024 imaging/diagn ostic result active [place] [address] [facility] [address], [place], [address], 09/17/2024 20:58:23 Procedure Notes None recorded. Medical Equipment None Reported. Allergies Allergen ID Allergen Name Allergen Category Reaction Reaction Severity Criticality Documentation Date Start Date Code Code System Note Provider Name and Address Organization Details Recorded Time 4858 Product containin g penicilli n (product) medicatio n anaphylax is Not available Not available 09/11/2022 88145 8001 SNOMED Not Available [facility] 03:04:07 Medications Name Sig Start Date Stop [...] 1 TABLET BY MOUTH ONCE DAILY NEEDED 01/12 /2024 completed Not Available Not Available Not Available [...] 20 mg by injection route. 10/27 completed [facility]: 0003- 0494- 20 Not Available Not Available [...] Available Not Available diclofenac sodium 50 mg tablet,héctor yed release TAKE 1 TABLET BY MOUTH [...] Updated DateTime 08/29/2023 172.72 cm 30.4 kg/m2 83520.47 g Geovanna Pittman CNA [employer] 08/29/2023 10:24:59 Date Recorded Body height Body mass index (BMI) Body weight Provider Name and Address Organization Details Last Updated DateTime 09/03/2023 172.72 cm 30.4 kg/m2 94885.47 g Sarahy Mcleod ATC L [employer] 09/03/2023 14:51:10 Date Recorded Body height Body mass index (BMI) Body weight Provider Name and Address Organization Details Last Updated DateTime 10/01/2023 172.72 cm 30.4 kg/m2 77141.47 g Precious Bauer Bettie [employer] 10/01/2023 14:09:03 Date Recorded Body height Body mass index (BMI) Body weight Pain severity - 0-10 verbal numeric rating [Score] - Reported Provider Name and Address Organization Details Last Updated DateTime 11/04/2023 172.72 cm 30.4 kg/m2 21640.47 g 3 Percious Bauer Bettie [employer] 11/04/2023 08:41:08 Date Recorded Body height Body mass index (BMI) Body weight Body temperature Heart rate Systolic blood pressure Diastolic blood pressure Provider Name and Address Organization Details Last Updated DateTime 4 172.72 cm 31.6 kg/m2 01740.2 1 g 97.6 [degF] 78 /min 110 mm[Hg] 68 mm[Hg] Sarah JessicaWALLACE barajas [place] [facility] [place] [employer] [facility] 4 11:30:40 Social History Question Answer Notes LastModified by Organization Details LastModified Time Tobacco Smoking Status Former Smoker quit 08/31/2014 Not Available [facility] 09/11/2022 02:46:21 Do You Have An Advance Directive? No Information not available 11/19/2022 What Is Your Level Of Alcohol Consumption? None MIGRATION.030 129311 Information not available 09/11/2022 What Is Your Level Of Caffeine Consumption? Moderate MIGRATION.030 564447 Information not available 09/11/2022 How Much Tobacco Do You Chew? None MIGRATION.030 917400 Information not available 09/11/2022 In The 14 Days Before Symptom Onset, Have You Had Close Contact With A Laboratory-confi rmed COVID-19 While That Case Was Ill? No MIGRATION.030 446050 Information not available 09/11/2022 In The 14 Days Before Symptom Onset, Have You Had Close Contact With A Person Who Is Under Investigation For COVID-19 While That Person Was Ill? No MIGRATION.030 776867 Information not available 09/11/2022 Are You Currently Employed? No Information not available 11/19/2022 What Type Of Diet Are You Following? REGULAR MIGRATION.030 427190 Information not available 09/11/2022 Which Illicit Or Recreational Drugs Have You Used? None MIGRATION.030 587432 Information not available 09/11/2022 What Is The Highest Grade Or Level Of School You Have Completed Or The Highest Degree You Have Received? 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 No Information not available 11/19/2022 What Was The Date Of Your Most Recent Tobacco Screening? 12/16/2023 Information not available 12/16/2023 Do You Have Any Pets? Yes Information not available 11/19/2022 What Is Your Relationship Status? MIGRATION.0301 [id number] Information not available 09/11/2022 Do You Have Smoke And Carbon Monoxide Detectors In Your Home? Yes Information not available 11/19/2022 At What Age Did You Start Smoking Tobacco? 12 MIGRATION.0301 767521 Information not available 09/11/2022 Are You Passively Exposed To Smoke? Yes Information not available 11/19/2022 Are There Any Smokers In Your House? Yes Nusband But Smokes Outside Information not available 11/19/2022 How Much Tobacco Do You Smoke? No Was 1ppd Information not available 11/19/2022 Do You Feel Stressed (tense, Restless, Nervous, Or Anxious, Or Unable To Sleep At Night)? [id number] Information not available 11/19/2022 Do You Use Any Illicit Or Recreational Drugs? No MIGRATION.0301 771272 Information not available 09/11/2022 Have You Recently Traveled Abroad? No MIGRATION.0301 592967 Information not available 09/11/2022 Do You Or Have You Ever Used Any Other Forms Of Tobacco Or Nicotine? No Information not available 11/19/2022 Sex: Female Functional Status Question Answer Note LastModified by Organizat ion Details LastModified Time What is your exercise level? Moderate MIGRATION.[id number] 6 Information not available 09/11/2022 Mental Status None recorded. Family History Relationship Description Onset Age of this Age Resolved Age Notes LastModified by Organization Details LastModified Time Father Malignant tumor of lung MIGRATION.166 [id number] Not available 09/11/2022 02:48:35 Mother Schizophreni a MIGRATION.900 3248045 Not available 09/11/2022 02:48:35 Mother Chronic obstructive pulmonary disease MIGRATION.347 0747617 Not available 09/11/2022 02:48:35 Mother Pulmonary emphysema MIGRATION.539 4119223 Not available 09/11/2022 02:48:35 Mother Blood coagulation disorder MIGRATION.742 2569231 Not available 09/11/2022 02:48:35 Maternal Grandfather Type 2 diabetes mellitus MIGRATION.131 6572234 Not available 09/11/2022 02:48:35 Maternal Grandfather Hypertensive disorder MIGRATION.197 9358584 Not available 09/11/2022 02:48:35 Maternal Grandfather Malignant tumor of colon MIGRATION.295 8495929 Not available 09/11/2022 02:48:35 Maternal Grandfather Congestive heart failure MIGRATION.530 9335278 Not available 09/11/2022 02:48:35 Maternal Grandfather Family history of malignant neoplasm MIGRATION.969 8916767 Not available 09/11/2022 02:48:35 Maternal Grandfather Kidney finding MIGRATION.627 5944890 Not available 09/11/2022 02:48:35 Maternal Grandfather Arthritis MIGRATION.805 3849585 Not available 09/11/2022 02:48:35 Maternal Grandfather Heart disease MIGRATION.792 8984629 Not available 09/11/2022 02:48:35 Maternal Grandfather MIGRATION.756 3054650 Not available 09/11/2022 02:48:35 Maternal Grandmother Type 2 diabetes mellitus MIGRATION.686 9938264 Not available 09/11/2022 02:48:35 Maternal Grandmother Hypertensive disorder MIGRATION.140 0741765 Not available 09/11/2022 02:48:35 Maternal Grandmother Family history of malignant neoplasm MIGRATION.379 1212461 Not available 09/11/2022 02:48:35 Maternal Grandmother Ulcer MIGRATION.491 8303389 Not available 09/11/2022 02:48:36 Maternal Grandmother Arthritis MIGRATION.412 8932349 Not available 09/11/2022 02:48:36 Paternal Grandfather Type 2 diabetes mellitus MIGRATION.695 0436590 Not available 09/11/2022 02:48:36 Paternal Grandfather MIGRATION.854 5362710 Not available 09/11/2022 02:48:36 Paternal Grandfather Alzheimer's disease MIGRATION.150 8270767 Not available 09/11/2022 02:48:36 Paternal Grandmother Type 2 diabetes mellitus MIGRATION.823 5239327 Not available 09/11/2022 02:48:36 Sister Fibromyalgia MIGRATION.0 30 2285673 Not available 09/11/2022 02:48:36 Medical History Condition Response ARTHRITIS Y HEADACHES/MIGRAINES Y OBESITY HYPOTHYROIDISM Y Gynecological HistoryNo gynecological history recorded. Obstetrics History GPAL:G 0 P 0 0 0 0 Past Encounters Encounter ID Performer Location Encounter Start Date Encounter Closed Date Diagnosis/Indication Diagnosis SNOMED-CT Code Diagnosis ICD10 Code Diagnosis Note [id number] [facility] 15 [address] [facility] [address] [address] 09/13/2020 00:00:00 09/13/2020 18:08:25 [id number] [facility] [address] [place], [place] [address]e., [address] [address] 03/22/2021 00:00:00 03/22/2021 18:02:26 [id number] [facility] [address] [place] [address] 03/30/2021 00:00:00 03/30/2021 14:56:00 [id number] [facility] [address] [place] [address] 01/11/2022 00:00:00 01/11/2022 18:37:21 [id number] Gasper portillo MD [facility] [address] [place] [address] 11/19/2022 15:46:22 11/19/2022 16:24:24 Screening - NAD 281260146 Z13.9 Does not do flu shotUTD on [...] her understand ing of the above Hypothyroidism 32698519 E03.9 OV 03/22/2021 :US thyroid 03/08/2021 , reluctant to get any ENT referralCa n repeat the US thyroid in [address] Jackson, next apt 03/30/2021 On synthroid 88mcgs daily OV 11/19/2022 :On tirosint 100mcgs daily, get labs, given by Dr Jackson Gastroesop hageal reflux disease without esophagitis 993342424 K21.9 Feels some bloatingCa n do OTC PPI and fiberIf not better may need EGD OV 11/19/2022 : Does well now, no complaints Generalize d anxiety disorder 59864006 F41.1 Has seen Arnel Glover NPNot suicidal or homicidal She is not on any medsShe states that she is doing very well now, is coping with reading books Migraine 73973889 G43.90 9 Get with neurology, and she [...] well now OV 11/19/2022 :Is doing well Long-term drug therapy 915013045 Z79.899 Vitamin D deficiency 347 28692 E55.9 Gynecologi c examination 07992671 Z01.814 [id number] FILI Peguero [facility] [address] [place] [address] 07/25/2023 11:08:06 07/25/2023 12:07:33 Pain of left knee joint 2353573612 74708 M25.562 Derangemen t of left knee 6433421781 1891335 M23.92 [id number] FILI Peguero [facility] [address] [place] [address] 08/29/2023 10:16:03 08/29/2023 10:39:35 Derangement of left knee 0011839486 4304746 M23.92 Pain in left knee 290904 9778 85843 M25.562 Tear of me niscus of knee 049654638 S83.242D [id number] Bear Vásquez MD [facility] [address] [place] [address] 09/03/2023 14:42:07 09/03/2023 16:08:29 Pain of left knee joint 1733217008 21987 M25.562 Tear of me dial meniscus of knee 697640550 S83.242A [id number] Breanna Castellanos NP [facility] [address] [place] [address] 10/01/2023 13:58:23 10/01/2023 14:26:19 Derangement of left knee 9082803544 9579633 M23.92 [id number] Breanna Castellanos NP [facility] [address] [place] [address] 11/04/2023 08:39:02 11/04/2023 09:04:07 Pain of left knee joint 7379568825 52684 M25.677 [id number] Gasper portillo MD [facility] [address] [facility], [facility] [address] [place] [address] 12/16/2023 11:19:47 12/16/2023 12:07:16 Screening - NAD 903458589 Z13.9 Does not do flu shotUTD on [...] her understand ing of the above Hypothyroidism 15549716 E03.9 OV 03/22/2021 :US thyroid 03/08/2021 , reluctant to get any ENT referralCa n repeat the US thyroid in [address] Jackson, next apt 03/30/2021 On synthroid 88mcgs daily OV 11/19/2022 :On tirosint 100mcgs daily, get labs, given by Dr Jackson OV 12/16/2023 : Not on any meds, get labs Gastroesop hageal reflux disease without esophagitis 201526777 K21.9 Feels some bloatingCa n do OTC PPI and fiberIf not better may need EGD OV 11/19/2022 : Does well now, no complaints Generalize d anxiety disorder 52881682 F41.1 Has seen Arnel Glover NPNot suicidal or homicidal She is not on any medsShe states that she is doing very well now, is coping with reading books Migraine 47875914 G43.90 9 Get with neurology, and she is to schedule this again OV 10/23/17:S he did see Dr Luis, and she will contact his office in one month OV 06/10/18:D oing well at this timeSees Dr Luis OV 10/13/18:D oing well at this time OV 11/04/18:D id see Dr LuisIs doing well today Addendum: 01/11/19:D tami Ga [...] on any meds Vitamin D deficiency 347 56820 E55.9 Gynecologi c examination 08152513 Z01.419 Pain of le ft knee joint 4624408134 63741 M25.562 S/p surgery Dr Vásquez 09/18/2023 , last ortho visit 11/04/2023 , wants a second opinion as she still has some L knee pain, will refer to Dr Baca Cholesterol screening 27 1493784 Z13.220 Get labs Herpes labialis 3842469 B00.1 No symptoms, wants a refill on [...] Name 08/29/2023 1 [employer] [facility] [facility] (MEDICAID REPLACEMENT - HMO) [id number] Linda Carrasquillo [id number] 40 Linda Carrasquillo 09/03/2023 1 [employer] [facility] (MEDICAID REPLACEMENT - HMO) [id number] Linda Carrasquillo [id number] 40 Linda Carrasquillo 10/01/2023 1 [place] [facility] (MEDICAID REPLACEMENT - HMO) [id number] Linda Carrasquillo [id number] 40 Linda Carrasquillo 11/04/2023 1 [facility] (MEDICAID REPLACEMENT - HMO) [id number] Linda Childs Carrasquillo [id number] 40 Linda Childs [employer] 12/16/2023 1 [facility] (MEDICAID REPLACEMENT - HMO) [id number] Linda Carrasquillo [id number] 40 Linda Carrasquillo Notes Date Note Type [...] occasional swelling, and mechanical symptoms. FILI Peguero [address] [place] [address], [facility] [address], [place], [address], [place] [facility] [place] [employer] [facility] 08/29/2023 14:18:09 12/16/2023 text/html OV 12/02/16Here to [...] [facility] that [facility] [...] [facility] and is doing well [...] any antigens, such as plants or detergents etcShe also is having anxiety attacks, her heart [...] no recent labs Gasper Richey MD [address], [facility] [address], [place], [address], [place] [facility] 12/16/2023 17:24:45 OBGyn Episode No OBEpisode recorded.
--- OUTSIDE RECORDS SUMMARY | 2024-09-20 18:46 | XMS_ITS | Referral Summary ---
Author Organization [facility] leemail Address [address] [place] [address] Care Team Providers Care Pin Worker Name Role Phone Gasper Richey MD Primary Care Provider Source Comments [facility] leemail,non-owned Affiliates and Associated Physician Practices is amultiple site organization consisting of ambulatory clinics and hospital sitesin [place], [place], [place] and [place]. This disclosure is being madepursuant to the Care Everywhere program and may not contain all information available regarding this patient. Last updated 18.[facility] leemail Allergies Active Allergy Reactions Criticality Noted Date [...] 1 tablet by mouth once daily Active [place]-3 Fatty Acids (FISH OIL OMEGA-3 PO) Take [...] of Treatment Not on file Care Teams Pin Worker Relationship Specialty Start Date End Date Gasper Richey MD [address] [address] PCP - General Internal Medicine 11/19/18
--- OUTSIDE RECORDS SUMMARY | 2024-09-20 18:46 | XMS_ITS | Patient Health Summary ---
Author Organization [facility] Address [address] [place] [address] Care Team Providers Care Body Joiner Name Role Phone Gasper Richey MD Primary Care Provider Note from [facility],non-owned Affiliates and Associated Physician Practices is amultiple site organization consisting of ambulatory clinics and hospital sitesin [place], [place], [place] and [place]. This disclosure is being madepursuant to the Care Everywhere program and may not contain all information available regarding this patient. Last updated 18.[facility] Allergies * Penicillins(Anaphylaxis) -High Criticality Medications * [...] 1 tablet by mouth once daily * Grafton-3 Fatty Acids (FISH OIL OMEGA-3 PO) Take [...] CDT Gavin Ga MD 12/01/2018 3:04 PM [facility] Neurosciences [facility] [address], [address], [place] [address] Test Date: 12/01/2018 Patient: Linda Carrasquillo : 1990 Physician: Gavin Ga MD Sex: Female Height: 5' 8 Ref Phys: ID#: [id number] Weight: 191 lbs. Patient Complaints: Patient is [...] titers Nucleosomes, Histones Drug-induced SLE Speckled Sm, SURGERY ATTENDANT, SCL-70, SLE,MCTD,PSS (diffuse form), SS-A/SS-B Sjogrens Nucleolar SCL-70, PM-1/SCL High titers Scleroderma, PM/DM Centromere Centromere PSS (limited form) w/Crest syndrome variable Nuclear Dot Sp100,[id number]-[id number] Primary Biliary Cirrhosis Nuclear GP210, Primary Biliary Cirrhosis Membrane harleen A,B,C 11/19/2018 2:39 PM CDT 11/19/2018 Narrative Resulting Agency Comment Lab Testing performed at: [facility] [address] [phone] Gavin Ga MD LAB - PATHOLOGY/CYTO LOGY ORDERABLES Performing Organization Address [facility] de Phone Number [facility] INSURANCE BILL [address] [place] [address] * IMMUNOFIXATION (11/19/2018 2:39 PM CDT) Immunofixation Result [facility] INSURANCE BILL Comment:No monoclonality det ected. IgG Quantitative 1,258 700 - 1,600 mg/dL [facility] INSURANCE BILL IgA Quantitative 155 87 - 352 mg/dL [facility] INSURANCE BILL IgM Quantitative 104 26 - 217 mg/dL [facility] INSURANCE BILL Blood BLOOD SPECIMEN / Unknown 11/19/2018 2:39 PM CDT 11/19/2018 Narrative Resulting Agency Comment Lab Testing performed at: [facility] [address] [phone] Gavin Ga MD LAB - CHEMISTRY [place] [facility] INSURANCE BILL [address] [place] [address] * ANCA VASCULITIS PANEL (11/19/2018 2:39 PM CDT) Anti-myeloperoxid ase (MPO) Antibody <9.0 0.0 - 9.0 U/mL [facility] INSURANCE BILL Anti-proteinase 3 (AK-3) Abs <3.5 0.0 - 3.5 U/mL [facility] [...] up testing of positive sera with both AK-3 and MPO-ANCA enzyme immunoassays. As many as [...] Resulting Agency Comment Lab Testing performed at: [facility] [phone] Gavin Ga MD LAB - CHEMISTRY [place] [facility] INSURANCE BILL [address] [place] [address] * RHEUMATOID FACTOR BLOOD QUANTITATIVE (11/19/2018 2:39 PM CDT) Rheumatoid Factor <10.0 0.0 - 13.9 IU/mL [facility] INSURANCE BILL Blood BLOOD SPECIMEN / Unknown 11/19/2018 2:39 PM CDT 11/19/2018 Narrative Resulting Agency Comment Lab Testing performed at: [facility] [address] [phone] Gavin Ga MD LAB - CHEMISTRY [place] Performing Organization Address City/[facility]/ZIP Co de Phone Number [facility] INSURANCE BILL [address] [place] [address] * (ABNORMAL) JAZMINE BLOOD SCREEN W/REFLEX TITER (11/19/2018 2:39 PM CDT) JAZMINE Positive(A ) [facility] INSURANCE BILL Comment: Negative <1:80 Borderline 1:80 Positive >1:80 Blood BLOOD SPECIMEN / Unknown 11/19/2018 2:39 PM CDT 11/19/2018 Narrative Resulting Agency Comment Lab Testing performed at: [facility] [place] [phone] Gavin Ga MD LAB - CHEMISTRY [place] Performing Organization Address [facility] Co de Phone Number [facility] INSURANCE BILL [address] [place] [address] * JARAD ANTIBODY PANEL (11/19/2018 2:39 PM CDT) SURGERY ATTENDANT Antibody <0.2 0.0 - 0.9 AI [facility] INSURANCE BILL Hanley (JARAD) Antibody <0.2 0.0 - 0.9 AI [facility] INSURANCE BILL Sjogren's Antibodies (SSA) <0.2 0.0 - 0.9 AI [facility] INSURANCE BILL Sjogren's Antibodies (SSB) <0.2 0.0 - 0.9 AI [facility] INSURANCE BILL Blood BLOOD SPECIMEN / Unknown 11/19/2018 2:39 PM CDT 11/19/2018 Narrative Resulting Agency Comment Lab Testing performed at: [facility] [address] [phone] Gavin Ga MD LAB - CHEMISTRY [place] Performing Organization Address City/[facility]/ZIP Co de Phone Number [facility] INSURANCE BILL [address] [place] [address] * VITAMIN B12 (11/19/2018 2:39 PM CDT) Vitamin B12 999 232 - 1,245 pg/mL [facility] INSURANCE BILL Blood BLOOD SPECIMEN / Unknown 11/19/2018 2:39 PM CDT 11/19/2018 Narrative Resulting Agency Comment [facility] Testing performed [facility]: [facility] [address] [phone] Gavin Ga MD LAB - CHEMISTRY [place] [facility] INSURANCE BILL [address] [place] [address] * (ABNORMAL) TSH (11/19/2018 2:39 PM CDT) TSH 0.272(L) 0.450 - 4.500 uIU/mL [facility] INSURANCE BILL Blood BLOOD SPECIMEN / Unknown 11/19/2018 2:39 PM CDT 11/19/2018 Narrative Resulting Agency Comment Lab Testing performed at: [facility] [address] [phone] Gavin Ga MD LAB - CHEMISTRY [place] Performing Organization Address City/[facility]/ZIP Co de Phone Number [facility] INSURANCE BILL [address] [place] [address] * T4 TOTAL (11/19/2018 2:39 PM CDT) T4 Total 9.1 4.5 - 12.0 ug/dL [facility] INSURANCE BILL Blood BLOOD SPECIMEN / Unknown 11/19/2018 2:39 PM CDT 11/19/2018 Narrative Resulting Agency Comment Lab Testing performed at: [facility] [phone] Gavin Ga MD LAB - CHEMISTRY [place] [facility] INSURANCE BILL [address] [place] [address] * PROTEIN ELECTROPHORESIS BLOOD (11/19/2018 2:39 PM CDT) Protein Total 7.9 6.0 - 8.5 g/dL [facility] INSURANCE BILL Albumin 4.4 2.9 - 4.4 g/dL [facility] INSURANCE BILL Alpha-1 Globulin 0.3 0.0 - 0.4 g/dL [facility] INSURANCE BILL Uokdk-9-Dwgucoeb 0.8 0.4 - 1.0 g/dL [facility] INSURANCE [...] scan will follow via computer, mail, or beautician apprentice delivery. P E Interpretation, S [facility] INSURANCE BILL Comment: The SPE pattern appears essentially unremarkable. Evidence of monoclonal protein is not apparent. Blood BLOOD SPECIMEN / Unknown 11/19/2018 2:39 PM CDT 11/19/2018 Narrative Resulting Agency Comment Lab Testing performed at: [facility] [address] [phone] Gavin Ga MD LAB - CHEMISTRY [place] [facility] INSURANCE BILL [address] [place] [address] * GROSS + MICRO EXAM (06/11/2007 12:25 PM NICU RN) Result CASE NUMBER [id number] [facility] LAB PATH REPORT Comment: ORDERING PHYSICIAN [...] and interpreted by the attending (teaching) pathologist. Cant Gang Sawyer SHANE MARTELL A RESIDENT IN PATHOLOG Antoni Sanchez M.D. PATHOLOGIST Tom Durand M.D. ELECTRONICALLY MADIHA TOM DURAND MISCELLANEOUS SAMPLES / Unknown 06/11/2007 12:25 PM NICU RN 06/11/2007 1:15 PM NICU RN Historical Provider LAB - PATHOLOGY/C YTOLOGY ORDERABLES [facility] LAB PATH REPORT Care Teams Body Joiner Relationship Specialty Start Date End Date Gasper Richey MD [address] [address] PCP - General Internal Medicine 11/19/18
[2024-09-20 19:07] LABS: Basophils Absolute Auto 0.1 K/mm3 (0.0-0.1); Basophils Percent Auto 0.7 % (0.2-1.2); Eosinophils Absolute Auto 0.2 K/mm3 (0-0.3); Eosinophils Percent Auto 2.1 % (0-4.4); Hematocrit 42.9 % (37.0-47.0); Immature Granulocyte Absolute 0.05 K/mm3 (0.00-0.031); Immature Granulocyte Percent A 0.5 % (0-0.5); Lymphocytes Absolute Auto 2.73 K/mm3 (0.9-3.2); Lymphocytes Percent Auto 25.5 % (18.3-44.2); Mean Corpuscular HGB Conc 32.6 g/dl (32-36); Mean Corpuscular Hemoglobin 27.9 pg (26-34); Mean Corpuscular Volume 85.5 fl (80-100); Mean Platelet Volume 9.4 fl (7.4-10.4); Monocytes Absolute Auto 0.7 K/mm3 (0.1-0.6); Monocytes Percent Auto 6.8 % (2.6-8.5); Neutrophils Absolute Auto 6.9 K/mm3 (1.3-6.7); Neutrophils Percent Auto 64.4 % (45.5-73.1); Platelet Count Result 320 k/mm3 (150-375); Red Blood Count 5.02 M/mm3 (4.2-5.4); White Blood Count 10.7 K/mm3 (4.5-10.0)
[2024-09-20 19:19] LABS: Alanine Aminotransferase 25 U/L (6-35); Albumin Level 5.2 g/dL (3.5-5.1); Alkaline Phosphatase 69 U/L (38-126); Anion Gap 14 mmol/L (4-12); Aspartate Amino Transferase 33 U/L (14-36); Bilirubin,Total 0.2 mg/dL (0.2-1.3); Blood Urea Nitrogen 15 mg/dL (7-17); Calcium 10.2 mg/dL (8.4-10.2); Carbon Dioxide 26 mmol/L (22-30); Chloride 101 mmol/L (98-107); Estimated CRCL calculation 108 ml/min; Estimated Glomerular Filt Rate > 60; Glucose 106 mg/dL (65-110); Sodium 141 mmol/L (137-145)
--- OUTSIDE RECORDS SUMMARY | 2024-09-20 19:19 | XMS_ITS | CONTINUITY OF CARE DOCUMENT ---
Author Name brenda gutierrez Address Unknown Organization [facility] Address [address] [facility] [facility] [address] [place] [address] Phone [phone] Care Team Providers Care Right Of Way Agent Name Role Phone Esperanza JUAREZ, Sanju Unavailable [phone] JEWEL JUAREZ, APURVA Unavailable [phone] APURVA HOLLOWAY MD Unavailable [phone] PROBLEMS Condition Status Date Provider Notes Cardiovascular screening completed - Arabella Darden MD CHEST PAIN completed - Sanju Mata MD Hypothyroidism active Arabella Darden MD GERD active Christiana Navarrete MD Screening active Sanju Mata MD Tobacco use quit active Sanju Mata MD Exposure to SARS-associated coronavirus active Sanju Mata MD Palpitations active Sanju Mata MD Obesity active Sanju Mata MD did not want gpl1 BACK PAIN completed - Sanju Mata MD Vision changes completed - Sanju Mata MD Headache completed - Sanju Mata MD Shortness of breath completed - Sanju Mata MD Family History of CVA or Stroke: completed - Arabella Darden MD Family History of Hypertension: completed - Sanju Mata MD Family History of Hyperlipidemia: completed - Arabella Darden MD ENCOUNTERS Date Type Provider Location Encounter Diag nosis 5 - 5 In-person encounter Office Visit Sanju Mata MD [place] [facility] Family History of Hypertension:CHEST PAINShortness of breathHeadacheVision changesBACK PAINScreeningTobacco use quitObesityPalpitationsExposure to SARS-associated coronavirus 7 - 8 In-person encounter Office Visit Christiana Navarrete MD [place] [facility] GERD 2 - 2 In-person encounter Office Visit Arabella Darden MD [place] [facility] Cardiovascular screeningFamily History of Hyperlipidemia:Family History [...] MD blood pressure, diastolic 70 mm[Hg] [facility], systolic 100 mm[Hg] Timothy l[facility] oxygen saturation, oximetry 99 % [employer] respiratory rate E&M 16 /min [employer] pulse rate 92 /min [employer] weight E&M 192 [lb_av] [employer] height E&M 68 [in_i] [employer] blood pressure, resting No Kill [facility] ALLERGIES Allergy Name Onset Date Reaction [...] times a week - Sanju Mata MD Wacissa-3 Fish Oil 300-1,000 mg capsule completed Take [...] Payer name Policy type / Coverage type Maryneal red constitution party ID [facility] [id number] ADVANCE DIRECTIVES Name Date DISCUSSED - NO [...]
--- OUTSIDE RECORDS SUMMARY | 2024-09-20 19:19 | XMS_ITS | Clinical Summary ---
Author Organization [facility] Address [address] [place] [address] Phone Care Team Providers Care Nuisance Wildlife Specialist Name Role Phone Gasper Richey MD Primary Care Provider Active Problems Problem Noted Date Diagnosed Date Chronic pain syndrome 05/27/2018 Somatic symptom disorder, pe rsistent, severe, with predominant pain 05/27/2018 Social History Tobacco Use Types Packs/Day Years Used Date Smoking Tobacco: Never Assessed Comments Unknown Sex and Gender Information Value Date Recorded Sex Assigned at Not on file Legal Sex Female 6:46 PM STATISTICAL REPORTING ANALYST Gender Identity Not on file Sexual Orientation [...] complete this topic Insurance [employer] Care Teams Nuisance Wildlife Specialist Relationship Specialty Start Date End Date Gasper Richey MD [address] [place] [address] [place] [address] PCP - General Internal Medicine 05/22/18
--- OUTSIDE RECORDS SUMMARY | 2024-09-20 19:19 | XMS_ITS | Clinical Summary ---
Author Organization [facility] [employer] Address [address] [place] [address] Care Team Providers Care Field Ring Assembler Name Role Phone Gasper Richey MD Primary Care Provider Source Comments [facility] [employer],non-owned Affiliates and Associated Physician Practices is amultiple site organization consisting of ambulatory clinics and hospital sitesin [place], [place], [place] and [place]. This disclosure is being madepursuant to the Care Everywhere program and may not contain all information available regarding this patient. Last updated 18.[facility] [employer] Allergies Active Allergy Reactions Criticality Noted Date [...] 1 tablet by mouth once daily Active Tendoy-3 Fatty Acids (FISH OIL OMEGA-3 PO) Take [...] age to complete this topic Care Teams Field Ring Assembler Relationship Specialty Start Date End Date Gasper Richey MD [address] [address] PCP - General Internal Medicine 11/19/18
--- OUTSIDE RECORDS SUMMARY | 2024-09-20 19:19 | XMS_ITS | Patient Health Summary ---
Author Organization [facility] Address [address] [facility] [place] [address] Care Team Providers Care Media Reconciliation Specialist Name Role Phone Gasper Richey MD Primary Care Provider Note from [facility],non-owned Affiliates and Associated Physician Practices is amultiple site organization consisting of ambulatory clinics and hospital sitesin [place], [place], [place] and [place]. This disclosure is being madepursuant to the Care Everywhere program and may not contain all information available regarding this patient. Last updated 18.[facility] Allergies * Penicillins(Anaphylaxis) -High Criticality Medications [...] 1 tablet by mouth once daily * Himrod-3 Fatty Acids (FISH OIL OMEGA-3 PO) Take [...] CDT Gavin Ga MD 12/01/2018 3:04 PM [facility] Neurosciences [facility] [address], [address], [place] [address] Test Date: 12/01/2018 Patient: Linda Carrasquillo : 1990 Physician: Gavin Ga MD Sex: Female Height: 5' 8 Ref Phys: ID#: [id number] Weight: 191 lbs. Patient Complaints: Patient is [...] titers Nucleosomes, Histones Drug-induced SLE Speckled Sm, HOTHOUSE WORKER, SCL-70, SLE,MCTD,PSS (diffuse form), SS-A/SS-B Sjogrens Nucleolar SCL-70, PM-1/SCL High titers Scleroderma, PM/DM Centromere Centromere PSS (limited form) w/Crest syndrome variable Nuclear Dot Sp100,w83-khdeop Primary Biliary Cirrhosis Nuclear GP210, Primary Biliary Cirrhosis Membrane harleen A,B,C 11/19/2018 2:39 PM CDT 11/19/2018 Narrative Resulting Agency Comment Lab Testing performed at: [facility] [address] [phone] Gavin Ga MD LAB - PATHOLOGY/CYTO LOGY ORDERABLES Performing Organization Address [facility] de Phone Number [facility] INSURANCE BILL [address] [place] [address] * IMMUNOFIXATION (11/19/2018 2:39 PM CDT) Immunofixation Result [facility] INSURANCE BILL Comment:No monoclonality det ected. IgG Quantitative 1,258 700 - 1,600 mg/dL [facility] INSURANCE BILL IgA Quantitative 155 87 - 352 mg/dL [facility] INSURANCE BILL IgM Quantitative 104 26 - 217 mg/dL [facility] INSURANCE BILL Blood BLOOD SPECIMEN / Unknown 11/19/2018 2:39 PM CDT 11/19/2018 Narrative Resulting Agency Comment Lab Testing performed at: [facility] [address] [facility] [phone] Gavin Ga MD LAB - CHEMISTRY [place] [facility] INSURANCE BILL [address] [place] [address] * ANCA VASCULITIS PANEL (11/19/2018 2:39 PM CDT) Anti-myeloperoxid ase (MPO) Antibody <9.0 0.0 - 9.0 U/mL [facility] INSURANCE BILL Anti-proteinase 3 (WY-3) Abs <3.5 0.0 - 3.5 U/mL [facility] [...] up testing of positive sera with both WY-3 and MPO-ANCA enzyme immunoassays. As many as [...] Resulting Agency Comment Lab Testing performed at: [facility] ([facility] [id number] Gavin Ga MD LAB - CHEMISTRY [place] [facility] INSURANCE BILL [address] [place] [address] * RHEUMATOID FACTOR BLOOD QUANTITATIVE (11/19/2018 2:39 PM CDT) Rheumatoid Factor <10.0 0.0 - 13.9 IU/mL [facility] INSURANCE BILL Blood BLOOD SPECIMEN / Unknown 11/19/2018 2:39 PM CDT 11/19/2018 Narrative Resulting Agency Comment Lab Testing performed at: [facility] [address] [facility] [phone] Gavin Ga MD LAB - CHEMISTRY [place] Performing Organization Address City/[facility]/ZIP Co de Phone Number [facility] INSURANCE BILL [address] [place] [address] * (ABNORMAL) JAZMINE BLOOD SCREEN W/REFLEX TITER (11/19/2018 2:39 PM CDT) JAZMINE Positive(A ) [facility] INSURANCE BILL Comment: Negative <1:80 Borderline 1:80 Positive >1:80 Blood BLOOD SPECIMEN / Unknown 11/19/2018 2:39 PM CDT 11/19/2018 Narrative Resulting Agency Comment Lab Testing performed at: [facility] [place] [id number] Gavin Ga MD LAB - CHEMISTRY [place] Performing Organization Address [facility] Co de Phone Number [facility] INSURANCE BILL [address] [place] [address] * JARAD ANTIBODY PANEL (11/19/2018 2:39 PM CDT) HOTHOUSE WORKER Antibody <0.2 0.0 - 0.9 AI [facility] INSURANCE BILL [place] (JARAD) Antibody <0.2 0.0 - 0.9 AI [facility] INSURANCE BILL Sjogren's Antibodies (SSA) <0.2 0.0 - 0.9 AI [facility] INSURANCE BILL Sjogren's Antibodies (SSB) <0.2 0.0 - 0.9 AI [facility] INSURANCE BILL Blood BLOOD SPECIMEN / Unknown 11/19/2018 2:39 PM CDT 11/19/2018 Narrative Resulting Agency Comment Lab Testing performed at: [facility] [address] [facility] [phone] Gavin Ga MD LAB - CHEMISTRY [place] Performing Organization Address City/[facility]/ZIP Co de Phone Number [facility] INSURANCE BILL [address] [place] [address] * VITAMIN B12 (11/19/2018 2:39 PM CDT) Vitamin B12 999 232 - 1,245 pg/mL [facility] INSURANCE BILL Blood BLOOD SPECIMEN / Unknown 11/19/2018 2:39 PM CDT 11/19/2018 Narrative Resulting Agency Comment Lab Testing performed [facility]: [facility] [address] [facility] [id number] Gavin Ga MD LAB - CHEMISTRY [place] [facility] INSURANCE BILL [address] [place] [address] * (ABNORMAL) TSH (11/19/2018 2:39 PM CDT) TSH 0.272(L) 0.450 - 4.500 uIU/mL [facility] INSURANCE BILL Blood BLOOD SPECIMEN / Unknown 11/19/2018 2:39 PM CDT 11/19/2018 Narrative Resulting Agency Comment Lab Testing performed at: [facility] [address] [facility] [facility] [id number] Gavin Ga MD LAB - CHEMISTRY [place] Performing Organization Address City/[facility]/ZIP Co de Phone Number [facility] INSURANCE BILL [address] [place] [address] * T4 TOTAL (11/19/2018 2:39 PM CDT) T4 Total 9.1 4.5 - 12.0 ug/dL [facility] INSURANCE BILL Blood BLOOD SPECIMEN / Unknown 11/19/2018 2:39 PM CDT 11/19/2018 Narrative Resulting Agency Comment Lab Testing performed at: [facility] [facility] [phone] Gavin Ga MD LAB - CHEMISTRY [place] [facility] INSURANCE BILL [address] [place] [address] * PROTEIN ELECTROPHORESIS BLOOD (11/19/2018 2:39 PM CDT) Protein Total 7.9 6.0 - 8.5 g/dL [facility] INSURANCE BILL Albumin 4.4 2.9 - 4.4 g/dL [facility] INSURANCE BILL Alpha-1 Globulin 0.3 0.0 - 0.4 g/dL [facility] INSURANCE BILL Nomid-6-Bcrxugeu 0.8 0.4 - 1.0 g/dL [facility] INSURANCE [...] scan will follow via computer, mail, or service inspector delivery. P E Interpretation, S [facility] INSURANCE BILL Comment: The SPE pattern appears essentially unremarkable. Evidence of monoclonal protein is not apparent. Blood BLOOD SPECIMEN / Unknown 11/19/2018 2:39 PM CDT 11/19/2018 Narrative Resulting Agency Comment Lab Testing performed at: [facility] [address] [facility] [facility] [phone] Gavin Ga MD LAB - CHEMISTRY [place] [facility] INSURANCE BILL [address] [place] [address] * GROSS + MICRO EXAM (06/11/2007 12:25 PM FELT HAT INSPECTOR AND PACKER) Result CASE NUMBER [id number] [facility] LAB PATH REPORT Comment: ORDERING PHYSICIAN ISIDORO [...] and interpreted by the attending (teaching) pathologist. Histopath Tech SHANE MARTELL A RESIDENT IN PATHOLOG Antoni Sanchez M.D. PATHOLOGIST Tom Durand M.D. ELECTRONICALLY MADIHA TOM DURAND MISCELLANEOUS SAMPLES / Unknown 06/11/2007 12:25 PM FELT HAT INSPECTOR AND PACKER 06/11/2007 1:15 PM FELT HAT INSPECTOR AND PACKER Historical Provider LAB - PATHOLOGY/C YTOLOGY ORDERABLES [facility] LAB PATH REPORT Care Teams Media Reconciliation Specialist Relationship Specialty Start Date End Date Gasper Richey MD [address] [address] PCP - General Internal Medicine 11/19/18
--- OUTSIDE RECORDS SUMMARY | 2024-09-20 19:19 | XMS_ITS | Referral Summary ---
Author Organization [facility] [employer] Address [address] [facility] [place] [address] Care Team Providers Care Property Accountant Name Role Phone Gasper Richey MD Primary Care Provider Source Comments [facility] [employer],non-owned Affiliates and Associated Physician Practices is amultiple site organization consisting of ambulatory clinics and hospital sitesin [place], [place], [place] and [place]. This disclosure is being madepursuant to the Care Everywhere program and may not contain all information available regarding this patient. Last updated 18.[facility] [employer] Allergies Active Allergy Reactions Criticality Noted Date [...] 1 tablet by mouth once daily Active Ponce-3 Fatty Acids (FISH OIL OMEGA-3 PO) Take [...] of Treatment Not on file Care Teams Property Accountant Relationship Specialty Start Date End Date Gasper Richey MD [address] [address] PCP - General Internal Medicine 11/19/18
--- NOTE | 2024-09-20 20:03 | ED_ITS ---
HPI - Headache General Chief Complaint: Headache Stated Complaint: Sent by PMD for HTN, dizziness, NORIEGA Time Seen by Provider: 09/20/24 16:47 History of Present Illness HPI Narrative: 33-year-old previously healthy female presenting to the emergency department for evaluation of a headache that started 3 days ago. She states she felt a sudden onset rothman of clear fluid out of her right nares that was thin and non viscus. She then suddenly developed dizziness, feeling hot, headache and some neck stiffness that slowly got better. The rhinorrhea stopped almost immediately after it started, her headache and neck stiffness have improved but she still has a headache without any oral or neurological concern. Denies any fever, chills, nausea, vomiting, vision changes, neck stiffness, shortness a breath, chest pain. No trauma or injury. No recent sinus infections, she states that she was seen here several days ago and received a CT scan but was not able to be seen by provider secondary to long wait so she went home. She returned today at the request for PCP for evaluation. No interval change in history. Related Data Allergies Allergy/AdvReac Type Severity Reaction Status Date / Time Penicillins Allergy Unknown Anaphylaxis Verified 09/20/24 16:15 RED ONION Allergy Unknown ITCHY Uncoded 09/20/24 16:15 THROAT Review of Systems 2 Review of Systems: As reviewed above in [facility] Social History Social History Smoking status: Former smoker Alcohol intake: never Exam 2 Narrative: GENERAL: [Well-appearing, well-nourished, and in no acute distress.] HEAD: [Normocephalic, atraumatic.] EYES: [PERRLA and EOMI.] ENT: Nares clear, no rhinorrhea or epistaxis. Mucous membranes moist. No recent foci of bleeding or rhinorrhea. No congestion, nasal turbinates do not appear inflamed NECK: Supple. Negative Kernig and Brudzinski sign. No signs of meningismus. CHEST: [Clear to auscultation. No respiratory distress.] HEART: [Regular rate and rhythm]. No murmur heard. [Normal peripheral pulses.] ABDOMEN: [Soft, nondistended], [nontender], [No rigidity or guarding] EXTREMITIES: Normal range of motion. [No edema.] SKIN: Warm, dry, no rash. NEURO: [No focal deficits]. Alert and oriented [x3.] PSYCH: [Normal mood and affect.] Course Vital Signs Vital signs: Vital Signs Temperature 36.6 C 09/20/24 16:10 Pulse Rate 88 09/20/24 16:10 Respiratory Rate 18 09/20/24 16:10 Blood Pressure 145/90 H 09/20/24 16:10 Pulse Oximetry 100 09/20/24 16:10 Oxygen Delivery Room Air 09/20/24 16:10 Temperature 36.6 C 09/20/24 16:10 Pulse Rate 80 09/20/24 17:01 Respiratory Rate 18 09/20/24 17:01 Blood Pressure 120/75 09/20/24 17:01 Pulse Oximetry 98 09/20/24 17:01 Oxygen Delivery Room Air 09/20/24 16:10 MDM - Headache MDM Narrative Medical decision making narrative: 33-year-old otherwise healthy female presenting to the ER for evaluation of a headache with associated dizziness, precipitated by clear rhinorrhea and complicated by some neck rigidity. She states that the neck rigidity and rhinorrhea stops pretty quickly after they started 3 days ago but she still has a headache presently. She has no signs of meningismus under physical examination, no neck stiffness or rigidity. She is not altered and has a normal gait without any ataxia or antalgic gait. Normal vital signs with a tachycardia, fever, hypoxia. 2+ symmetric strength in both arms and legs, no sensory changes or deficits. Considerations presently are for a tension headache, migraine headache, sinus headache, sinusitis, low suspicion for intracranial pathology such as a head bleed or CSF leak although with clear rhinorrhea raises suspicion for this without any infectious type symptoms. I discussed the case with the on-call radiologist to obtain recommendations for potential imaging modalities in addition to a noncontrast head CT. Recommendations to also obtain a CT of the soft tissue neck structures with contrast to evaluate for any potential masses, sinus injury or other potential etiologies that explain patient's symptoms. These were ordered in addition to basic laboratory studies. Patient presently does not have a headache and hemodynamically stable. Workup shows no leukocytosis or anemia. Normal platelet count. Normal electrolytes. Normal renal function. Normal LFTs. CT of the head and soft tissues of the neck shows no acute findings, slightly deviated septum but no signs of sinusitis, no signs of bleeding, no hemorrhage or leak. Unremarkable dural venous sinus, no infarcts in mass, hydrocephalus or herniation. Patient was re-evaluated and remained asymptomatic. At this time she is safe and stable for discharge home at this time with regular PCP follow-up and strict return precautions which she verbalized understanding. She was given instructions to maintain a headache diary and blood pressure diary to see if that has any correlation with her blood pressure elevations at home. Patient verbalized understanding and provided discharge instructions at this time. Medical Records Attestation: I reviewed the patient's medical records. Lab Data Attestation: I reviewed the patient's lab results. 09/20/24 19:02 09/20/24 19:02 Labs: Lab Results 09/20/24 Range/Units 19:02 WBC 10.7 H (4.5-10.0) K/mm3 RBC 5.02 (4.2-5.4) M/mm3 Hgb 14.0 (12.0-15.0) g/dL Hct 42.9 (37.0-47.0) % MCV 85.5 (80-100) fl MCH 27.9 (26-34) pg MCHC 32.6 (32-36) g/dl RDW 13.0 (11.5-14.5) % Plt Count 320 (150-375) k/mm3 MPV 9.4 (7.4-10.4) fl Immature Gran % (Auto) 0.5 (0-0.5) % Neut % (Auto) 64.4 (45.5-73.1) % Lymph % (Auto) 25.5 (18.3-44.2) % Kane % (Auto) 6.8 (2.6-8.5) % Eos % (Auto) 2.1 (0-4.4) % Baso % (Auto) 0.7 (0.2-1.2) % Lymph # (Auto) 2.73 (0.9-3.2) K/mm3 Kane # (Auto) 0.7 H (0.1-0.6) K/mm3 Eos # (Auto) 0.2 (0-0.3) K/mm3 Baso # (Auto) 0.1 (0.0-0.1) K/mm3 Abs Immat Gran (auto) 0.05 H (0.00-0.031) K/mm3 Absolute Neuts (auto) 6.9 H (1.3-6.7) K/mm3 Absolute Nucleated RBC 0.000 (0.0-0.012) K/mm3 Nucleated RBC % 0.0 (0.0-0.2) % Sodium 141 (137-145) mmol/L Potassium 4.0 (3.4-5.0) mmol/L Chloride 101 (98-107) mmol/L Carbon Dioxide 26 (22-30) mmol/L Anion Gap 14 H (4-12) mmol/L BUN 15 (7-17) mg/dL Creatinine 0.76 (0.7-1.0) mg/dL Estim Creat Clear Calc 108 ml/min Estimated GFR > 60 (59 - ) Glucose 106 (65-110) mg/dL Calcium 10.2 (8.4-10.2) mg/dL Total Bilirubin 0.2 (0.2-1.3) mg/dL AST 33 (14-36) U/L ALT 25 (6-35) U/L Alkaline Phosphatase 69 (38-126) U/L Total Protein 9.0 H (6.3-8.2) g/dL Albumin 5.2 H (3.5-5.1) g/dL Imaging Data Attestation: I personally reviewed and interpreted this imaging study as follows: My impression: Impressions Head CT 09/20/24 19:56 IMPRESSION: No acute intracranial process. Soft Tissue Neck CT 09/20/24 20:38 IMPRESSION: Unremarkable CT soft tissue neck findings. Discharge Plan Discharge Clinical Impression: Headache, Migraine Patient Disposition: Home, Self-Care Condition: Stable Instructions: Antibiotic Form Additional Instructions: Your workup here was very reassuring, no CT scan findings of your head, neck or facial structures showing any concerns. You can take dhnz-tlu-[id number] medications if you have any new or persistent or new headache, return with any new or worsening concerns such as vision changes, fever, neck rigidity, weakness, neuropathy or any other concerns. Patient Language: Arabic Prescriptions: No Action diclofenac sodium 50 mg tablet,delayed release (DR/EC) 50 mg PO TID PRN (Reason: pain) Qty: 30 0RF prednisone 20 mg tablet 20 mg PO BID 3 Days Qty: 6 0RF Follow-up/Referrals: Kaiden,MD Gasper [Primary Care Provider] - Time of Disposition: 21:05
[2024-09-20] MEDS: FLUCONAZOLE 150 MG TABLET PO (21:25)
[2024-09-20 21:32] VITALS: BP 134/72; PULSE 78; RESP 18; O2SAT 100
== END 2024-09-20 21:34 | disposition home or self-care (01) ==
PROVIDERS: Emergency Provider Student in an Organized Health Care Education/Training Program; PCP Internal Medicine
DX: G43.909 Migraine, unspecified, not intractable, without status migrainosus (principal); Z87.891 Personal history of nicotine dependence
CPT/HCPCS: 36415; 70450; 70491; 80053; 85025; 99284; A9270; Q9967

== ENCOUNTER 2025-04-17 14:09 | Emergency (ER) | payer BC, SELFPAY ==
--- OUTSIDE RECORDS SUMMARY | 2025-04-17 14:12 | XMS_ITS | Data Portability ---
Author Organization [facility] Jackson Verma Address [address] [place] [address] Care Team Providers Care Test Lead Name Role Phone APURVA HOLLOWAY Primary Care Provider [phone] Assessment No assessment recorded. Plan of Treatment Reminders Order Date Submit Date Provider Last Modified By Organization Details Last Modified Time Details Appointments None recorded. Lab vaginal pathogens panel, VICKI+probe, vaginal fluid 2024 025 HUGO [facility] (Centralized Electronic Ordering - All Locations), Patient Can Go To The Location Of Their Choice, [address] 07:13:38 cytology report, thin prep, smear or scraping, cervical or vaginal - brush and broom 2024 025 HUGO [facility] (Centralized Electronic Ordering - All Locations), Patient Can Go To The Location Of Their Choice, [address] 5 11:22:20 Referral None recorded. Procedures None recorded. Surgeries None recorded. Imaging None recorded. Medication Orders None recorded. Patient TargetsNo targets recorded. Patient InstructionsNo instructions recorded. Reason for Referral None Reported. Results Created Date Observation Date Name Description Value Unit Range Abnormal Flag Note LastModifiedBy Organization Detail LastModifiedTime 03/09/2003/10/2025 NUSWA B VAGIN ITIS PLUS (VG+) atopobium vaginae LOW - 0 score Not Available [facility] ([facility]) [address] [facility], [place], [address], 03/11/2025 07:13:38 03/09/2003/10/2025 NUSWA B VAGIN ITIS PLUS (VG+) bvab 2 LOW - 0 score Not Available [facility] ([facility]) [address] [place], [address], 03/11/2025 07:13:38 03/09/20 25 03/10/2025 NUSWA B VAGIN ITIS PLUS (VG+) megasphaera 1 LOW - 0 score Calcu late total score by emi dias the 3 indiv idual bacte rial vagin osis (BV) marke r score s toget her. Total score is inter prete d as follo ws: Total score 0-1: Indic ates the absen ce of BV. Total score 2: Indet ermin ate for BV. Addit ional clini nory data shoul d be evalu ated to estab zayda a diagn osis. Total score 3-6: Indic ates the prese nce of BV. Not Available [facility] ([facility]) [address] [facility], [place], [address], 03/11/2025 07:13:38 03/09/20 25 03/10/2025 NUA B VAGIN ITIS PLUS (VG+) leanne albicans, VICKI NEGATI VE negati ve Not Available [facility] ([facility]) [address] [place], [address], 03/11/2025 07:13:38 03/09/20 25 03/10/2025 NUA B VAGIN ITIS PLUS (VG+) leanne glabrata, VICKI NEGATI VE negati ve Not Available [facility] ([facility]) [address] [place], [address], 03/11/2025 07:13:38 03/09/20 25 03/11/2025 NUA B VAGIN ITIS PLUS (VG+) trich vag by VICKI NEGATI VE negati ve Not Available [facility] ([facility]) [address] [place], [address], 03/11/2025 07:13:38 03/09/20 25 03/11/2025 NUSWA B VAGIN ITIS PLUS (VG+) chlamydia trachomatis, VICKI NEGATI VE negati ve Not Available [facility] ([facility]) [address] [facility], [place], [address], 03/11/2025 07:13:38 03/09/20 25 03/11/2025 NUSWA B VAGIN ITIS PLUS (VG+) neisseria gonorrhoeae, VICKI NEGATI VE negati ve Not Available [facility] ([facility]) [address] [facility], [place], [address], 03/11/2025 07:13:38 03/09/20 25 03/10/2025 IGP, APTIM A HPV, RFX 16/18 ,45 HPV aptima NEGATI VE negati ve This nucle ic acid ampli ficat ion test detec ts fourt een high- risk HPV types (16,1 8,31, 33,35 ,39,4 5,51, 52,56 ,58,5 9,66, 68) witho ut diffe renti ation . Not Available [facility] ([facility]) [address] [facility], [place], [address], 03/11/2025 11:22:20 03/09/20 25 03/11/2025 IGP, APTIM A HPV, RFX 16/18 ,45 diagnosis: COMMEN T NEGAT JOELLE FOR INTRA EPITH ELIAL LESIO N OR SHERYL LYNN . Not Available [facility] ([facility]) [address] [facility], [place], [address], 03/11/2025 11:22:20 03/09/2003/11/2025 IGP, APTIM A HPV, RFX 16/18 ,45 specimen adequacy: COMMEN T Satis facto ry for evalu ation . Endoc ervic al and/o r squam ous metap lasti c cells (endo cervi nory compo nent) are prese nt. Not Available [facility] ([facility]) [address] [facility], [place], [address], 03/11/2025 11:22:20 03/09/20 25 03/11/2025 IGP, APTIM A HPV, RFX 16/18 ,45 clinician provided ICD10: BISHNU Kapadia Z01.4 19 N89.8 Not Available [facility] ([facility]) [address] [place], [address], 03/11/2025 11:22:20 03/09/20 25 03/11/2025 IGP, APTIM A HPV, RFX 16/18 ,45 performed by: BISHNU Morales in [place], Cytol ogist (ASCP ) Not Available [facility] ([facility]) [address] [place], [address], 03/11/2025 11:22:20 03/09/20 25 03/11/2025 IGP, APTIM A HPV, RFX 16/18 ,45 . . Not Available [facility] ([facility]) [address] [place], [address], 03/11/2025 11:22:20 03/09/20 25 03/11/2025 IGP, APTIM A HPV, RFX 16/18 ,45 note: BISHNU Kapadia The Pap smear is a scree rey test desig romy to aid in the detec tion of luda ligna nt and malig nant condi tions of the uteri ne cervi x. It is not a diagn ostic proce dure and shoul d not be used as the sole means of detec ting cervi nory cance r. Both false -posi tive and false -nega tive repor ts do occur . Not Available [facility] ([facility]) [address] [place], [address], 03/11/2025 11:22:20 03/09/20 25 03/11/2025 IGP, APTIM A HPV, RFX 16/18 ,45 test methodology: COMMEN T This liqui d based ThinP rep(R ) pap test was scree romy with the use of an image guide kathy harrington. Not Available [facility] ([facility]) [address] [facility], [place], [address], 03/11/2025 11:22:20 03/09/20 25 03/11/2025 IGP, APTIM A HPV, RFX 16/18 ,45 HPV genotype reflex COMMEN T Crite anibal not met, HPV Genot ype not perfo rmed. Not Available [facility] ([facility]) [address] [facility], [place], [address], 03/11/2025 11:22:20 Result Notes None recorded. Problems No Known Problems Procedures Surgical History Date Name Laterality Status Provider Name and Address Organization Details Recorded Time 5 Date of Last Pap Smear completed WALLACE Urbina [facility] 03/09/2025 10:28:38 4 laparoscopy completed WALLACE Urbina [facility] 03/09/2025 10:22:39 Imaging Results None recorded. Procedure Notes None recorded. Medical Equipment None Reported. Allergies Allergen ID Allergen Name Allergen Category Reaction Reaction Severity Criticality Documentation Date Start Date Code Code System Note Provider Name and Address Organization Details Recorded Time 19550215 Product containin g penicilli n (product) medicatio n anaphylax is Not available Not available 03/09/2025 91813 8001 SNOMED WALLACE Urbina [facility] 5 10:16:49 Medications Name Sig Start Date Stop Date Status Note LastModified by Organization Details LastModified Time doxycycline hyclate 100 mg capsule TAKE 1 CAPSULE BY MOUTH TWICE DAILY 03/09 completed Not Available Not Available Not Available cetirizine 10 mg tablet TAKE 1 TABLET BY MOUTH ONCE DAILY NEEDED active Not Available Not Available No t Available azithromyci n 250 mg tablet TAKE 2 TABLETS BY MOUTH ON DAY 1, AND THEN TAKE 1 TABLET BY MOUTH ONCE A DAY ON DAY 2 THROUGH DAY 5 03/09 completed Not Available Not Available Not Available fluconazole 150 mg tablet TAKE 1 TABLET BY MOUTH ONCE DAILY NEEDED FOR 1 DAY 03/09 completed Not Available Not Available Not Available valacyclovi r 500 mg tablet TAKE 1 TABLET BY MOUTH TWICE DAILY FOR 3 DAYS active Not Available Not Available No t Available propranolol 10 mg tablet TAKE 1 TABLET BY MOUTH TWICE DAILY 03/09 completed Not Available Not Available Not Available dexamethaso ne 1 mg tablet TAKE ONE TABLET BY MOUTH AT 10PM NIGHT BEFORE 8AM CORTISOL 1 DAYS 03/09 completed Not Available Not Available Not Available Unithroid 50 mcg tablet TAKE 1 TABLET BY MOUTH ONCE DAILY 03/09 completed Not Available Not Available Not Available Unithroid 100 mcg tablet TAKE 1 TABLET BY MOUTH ONCE DAILY 03/09 completed Not Available Not Available Not Available methylpredn isolone 4 mg tablets in a dose pack TAKE DIRECTED ON PACKAGE 03/09 completed Not Available Not Available Not Available fluticasone propionate 50 mcg/actuati on nasal spray,suspe nsion USE 1 SPRAY(S) IN EACH NOSTRIL ONCE DAILY 03/09 completed Not Available Not Available Not Available Vitals Date Recorded Body height Body mass index (BMI) Body weight Heart rate Systolic And Diastolic Provider Name and Address Organization Details Last Updated DateTime 03/09/2025 175.26 cm 33.7 kg/m2 809613.4 6 g 60 /min 119/79 mm[Hg] WALLACE Urbina [facility] 03/09/2025 10:16:34 Social History Question Answer Notes LastModified by Organizat ion Details LastModified Time Tobacco Smoking Status Former Smoker WALLACE Urbina [facility] [place] - [facility] 03/09/2025 10:22:02 What Was The Date Of Your Most Recent Tobacco Screening? 03/09/2025 Information not available 03/09/2025 What Is Your Relationship Status? Information not available 03/09/2025 Are You Sexually Active? Yes Information not available 03/09/2025 Do You Have Smoke And Carbon Monoxide Detectors In Your Home? Yes Information not available 03/09/2025 Are You Passively Exposed To Smoke? Yes Information no t available 03/09/2025 Has Tobacco Cessation Counseling Been Provided? Yes Information not available 03/09/2025 On What Date Was Tobacco Cessation Counseling Provided? 03/09/2025 Information not available 03/09/2025 Sex: Female Functional Status Question Answer Note LastModified by Organizat ion Details LastModified Time Do you use any illicit or recreational drugs? No Information not available 03/09/2025 Do you or have you ever used any other forms of tobacco or nicotine? Yes Information not available 03/09/2025 What is your level of alcohol consumption? None Information not available 03/09/2025 Do you or have you ever used e-cigarettes or vape? Never used electronic cigarettes Information not available 03/09/2025 Mental Status None recorded. Family History Relationship Description Onset Age of this Age Resolved Age Notes LastModified by Organization Details LastModified Time Maternal Grandmother Diabetes mellitus [email or web address] Not available 03/09 10:19:46 Maternal Grandmother Malignant neoplasm of skin psimmonsma Not available 03/09 10:20:21 Maternal Grandfather Diabetes mellitus psimmonsma Not available 03/09 10:19:46 Paternal Grandfather Diabetes mellitus psimmonsma Not available 03/09 10:19:46 Maternal Aunt Malignant neoplasm of breast psimmonsma Not available 03/09 10:19:58 Maternal Uncle Carcinoma in situ of colon psimmonsma Not available 03/09 10:20:32 Father Malignant neoplasm of lung psimmonsma Not available 03/09 10:20:43 Sister Cerebrovascu lar accident 38 psimmonsma Not available 10:21:15 Sister Factor V deficiency psimmonsma Not available 02/12 10:23:53 Mother Factor V deficiency psimmonsma Not available 02/12 10:23:53 Mother Chronic obstructive pulmonary disease psimmonsma Not available 03/09 10:24:01 Medical History Condition Response Have you had a mammogram in the last yea r? N Diabetes Y Anxiety Disorder Y Muscle, Joint, or Bone Problems Y Anemia Y Headaches Y Thyroid Problems Depression Y Gynecological History Statement/Question Response Flow Moderate Date of LMP 03/03/2025 STIs/STDs N Duration of Flow (days) 3 Age at Menarche 10 Current Control Method Partner Vas ectomy Age at First Child 24 Frequency of Cycle (Q days) 28 Menses Monthly Y Date of Last Pap Smear 03/09/2025 LMP Definite Obstetrics History GPAL:G 2 P 2 0 0 2 Type Value Full Term 2 Living 2 Total 2 Immunizations Vaccine Type Date Status Note Provider Nam e and Address Organization Details Recorded Time Tdap 03/01/2017 completed Not Available [facility] 03/09/2025 10:07:36 Past Encounters Encounter ID Performer Location Encounter Start Date Encounter Closed Date Diagnosis/Indication Diagnosis SNOMED-CT Code Diagnosis ICD10 Code Diagnosis IMO Codes Diagnosis Note [id number] MD Addi Thompson 14 OB 4 [facility] [address] [place] [address] 03/09/2025 10:06:09 03/10/2025 10:38:31 Gynecologic examination 65112003 Z01.538 [id number] 1. Counseled regarding prevention of STD's , condom use and prevention . 2. Counseled regarding contracept joelle options, risk factors and side effects. 3. Advised avoidance of tobacco, alcohol, and drugs . 4. Counseled regarding folic acid supplement ation, calcium needs and prevention of osteoporos is . 5. BSE reviewed and recommende d. 6. Follow up in one year or sooner if needed. Vaginal discharge 477816 006 N89.8 06150 Nuswab done and sent to lab. Counseled on STD prevention and condom use. Counseled on yeast and BV prevention . Will follow up pending lab results. Health Concerns Section Related Observation LastModified by Organization Detai ls LastModified Time None Recorded Concern Status LastModified by Organization Details LastModified Time None Recorded Advance Directives Directive None Recorded Payers Insurance Date Sequence Insurance Name Policy Number Policy Prather Covered Member ID Prather Member ID Guarantor Name 03/04/2025 1 [employer] - DOS PRIOR TO 2025 (MEDICAID REPLACEMENT - HMO) Lnida Carrasquillo [id number] Linda Carrasquillo 03/08/2025 1 [employer] - DOS ON OR AFTER 2025 (MEDICAID REPLACEMENT - HMO) [id number] Linda Carrasquillo [id number] Linda Carrasquillo Notes Date Note Type Note Provider Name and Address Organization Details Recorded Time 5 text/html Annual GYNReported by PatientGenitourinary symptomsFor vagina, patient reportsfoul-smelling. For menstrual cycle, patient reportsnormal menses. For urinary symptoms, patient reportsno hematuriaandno incontinence. For vulva, patient reportsno genital lesion.Breast symptomsFor breast, patient reportsno breast pain,no breast lump, andno nipple discharge.Endocrine symptomsFor sexual complaints, patient reportsno sexual complaints,no pain during intercourse, andnormal libido. For menopausal symptoms, patient reportsno menopausal symptomsandnormal vaginal lubrication.Psychological symptomsFor psychological symptoms, patient reportsno depression,no anxiety, andno pmdd.Preventative measuresFor preventive measures, patient reportsencourage self breast examination,encourage regular exercise,encourage no tobacco use,encourage regular mammograms starting age 40, andfollowed with q3 year pap smear and high risk hpv typing.ROS as noted in the HPI 34 yo fe here for [facility]- , hx anemia, depression, anxiety, headaches, prediabetes- would like swab for vaginal odor EVA Vigil-RAÚL Attn: Accounting,[address] [facility], [place], [address], [place] 03/09/2025 10:49:36 OBGyn Episode No OBEpisode recorded.
--- OUTSIDE RECORDS SUMMARY | 2025-04-17 14:12 | XMS_ITS | Clinical Summary ---
Author Organization [facility] Address [address] [place] [address] Care Team Providers Care Client Advisor Name Role Phone Gasper Richey MD Primary Care Provider Social History Tobacco Use Types Packs/Day Years Used Date Smoking Tobacco: Never Assessed Comments Unknown Sex and Gender Information Value Date Recorded Sex Assigned at Female 04/05/2025 11:08 AM CDT Legal Sex Female 7:24 PM CDT Gender Identity Not on file Sexual Orientation Not on file Plan of Treatment Upcoming Encounters Date Type Department Care Team (Late st Contact Info) Description 04/20/2025 10:00 AM CDT Appointment [facility] [address] [place] [address] Myriam Jackson MD [address] [place] [address] Health Maintenance Due Date Last Done Comments Cervical Cancer Screening Pa p Smear (Age 30 to 64) Every 3 Years 1989 Annual Physical 1992 Hepatitis C 11/27/2007 DTaP, Tdap and Td Vaccines ( 1 - Tdap) 2008 Hepatitis B Vaccines (1 of 3 - 19+ 3-dose series) 2008 HPV Vaccines (1 - 3-dose SCD M series) 2016 Cervical Cancer Screening Pa p with HPV Testing (Age 30 to 64) Every 5 Years 11/27/2019 Cervical Cancer Screening with HPV 11/27/2019 COVID-19 Vaccine (2023-2 5 season) 2025 Influenza Adult (#1) 2025 Meningococcal B Vaccine Aged Out No l onger eligible based on patient's age to complete this topic Meningococcal Vaccine Aged Out No ian angel eligible based on patient's age to complete this topic Pneumococcal Vaccine: Pediat rics (0 to 5 Years) and At-Risk Patients (6 to 49 Years) Aged Out No longer eligible b ased on patient's age to complete this topic RSV Immunizations Under 20 Months Aged Out No longer eligible based on patient's age to complete this topic Insurance [facility] [address] Care Teams Client Advisor Relationship Specialty Start Date End Date Gasper Richey MD [address] [facility] [address] [place] [address] (work) PCP - General INTERNAL MEDICINE 04/05/25
--- OUTSIDE RECORDS SUMMARY | 2025-04-17 14:12 | XMS_ITS | Clinical Summary ---
Author Organization [facility] Address [address] [place] [address] Care Team Providers Care Vendette Name Role Phone Gasper Richey MD Primary Care Provider Source Comments [facility],non-owned Affiliates and Associated Physician Practices is amultiple site organization consisting of ambulatory clinics and hospital sitesin [place], [place], [place] and [place]. This disclosure is being madepursuant to the Care Everywhere program and may not contain all information available regarding this patient. Last updated 18.[facility] Allergies Active Allergy Reactions Criticality Noted Date Comments Penicillins Anaphylaxis High 11/19/2018 Medications * Be aware that medications may not be up to date on this document. Alwaysverify current medications with the patient. levothyroxine (SYNTHROID) 75 MCG tablet Take 75 mcg by mouth Active levothyroxine (SYNTHROID) 88 MCG tablet Take 88 mcg by mouth daily before breakfast Active HYDROcodone-juana taminophen (NORCO) 5-325 MG tablet Take 1 tablet by mouth every 4 hours as needed for Pain Active clonazePAM, disintegrating, 0.5 MG Take 0.5 mg by mouth as needed Active thyroid (WESTHROID) 65 MG tablet Take 65 mg by mouth daily before breakfast Active thyroid (WP THYROID) 65 MG tablet 1/4 of a pill qd Act deepa topiramate (TOPAMAX) 25 MG tablet Take 1 tablet by mouth as directed Week 1: 25 mg qhs Week 2: 25 mg bid Week 3: 25 mg AM, 50 mg PM. 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 Gender Identity Not on file Sexual [...] 3:40 PM CDT Height 172.7 cm (5' 8) 03/11/2019 3:40 PM CDT Body Mass Index 28.89 03/11/2019 3:40 PM CDT Plan of Treatment Health Maintenance Due Date Last Done Comments HIV SCREENING 2004 HEPATITIS C SCREENING 11/22/2007 DTAP/TDAP/TD VACCINES (1 - Tdap) 2008 HEPATITIS B VACCINE (1 of 3 - 19+ 3-dose series) 2008 HPV VACCINE (1 - 3-dose SCDM series) 2016 DEPRESSION SCREENING 07/14/2024 COVID-19 VACCINE (1 - 2024-2 5 season) 2025 INFLUENZA VACCINE (#1) 2025 ZOSTER VACCINE (1 of 2) 11/27/2039 HIB VACCINE Aged Out No longer eligi ble based on patient's age to complete this topic MENINGOCOCCAL (Group B) VACC INE SHARED DECISION-MAKING Aged Out No longer eligibl e based on patient's age to complete this topic MENINGOCOCCAL GROUPS A/C/Y/W VACCINE Aged Out No longer eligible b ased on patient's age to complete this topic PNEUMOCOCCAL VACCINE Aged Out No long er eligible based on patient's age to complete this topic Insurance [employer] Care Teams Vendette Relationship Specialty Start Date End Date Gasper Richey MD [address] [address] PCP - General Internal Medicine 11/19/18
--- OUTSIDE RECORDS SUMMARY | 2025-04-17 14:12 | XMS_ITS | Data Portability ---
Author Organization [facility], Main Office Address [address] [place] [address] Assessment Encounter Date Assessment Date Assessment LastModified by Organization Details LastModified Time 01/05/2025 01/05/2025 10/05/2024: A1C 5.8 [email or web address] Not available 01/05/2025 15:03:35 01/24/2025 01/24/2025 Time spent with patient included: preparing to see patient by reviewing tests, obtaining and reviewing history, medical examination and evaluation, counseling and educating the patient, ordering medications and tests, documenting clinical information in EHR, independently interpreting results and communicating results to the patient for a total of 42 minutes. Not available 01/24/2025 11:13:29 03/01/2025 03/01/2025 Time spent with patient included: preparing to see patient by reviewing tests, obtaining and reviewing history, medical examination and evaluation, counseling and educating the patient, ordering medications and tests, documenting clinical information in EHR, independently interpreting results and communicating results to the patient for a total of 25 minutes. Not available 03/01/2025 10:10:33 Plan of Treatment Reminders Order Date Submit Date Provider Last Modified By Organization Details Last Modified Time Details Appointments Any 15 2024 04:00P M Gasper barnes MD Not available Not available Not available Lab lipid panel, serum 2024 025 [facility] (Lab), [address] [place], [address], 01/05/2025 16:42:05 CBC w/ auto diff 2024 025 [facility] (Lab), [address] [place], [address], 01/05/2025 16:42:06 TSH, serum or plasma 2024 025 [facility] (Lab), [address] [place], [address], 01/05/2025 16:42:06 CMP, serum or plasma 2024 025 [facility] (Lab), [address] [place], [address], 01/05/2025 16:42:05 glycohemo globin, total, blood [address] (Lab), [address] [place], [address], 01/13/2025 08:59:16 protein, total, urine [address] (Lab), [address] [place], [address], 01/13/2025 08:59:25 vitamin D, 25-hydrox y, total, serum 2024 025 [facility] (Lab), [address] [place], [address], 01/05/2025 16:42:06 vitamin B12 + folate, serum or blood [address] (Lab), [address] [place], [address], 01/13/2025 08:59:06 vitamin D, 25-hydrox y, total, serum 2024 025 [facility], [address], [place], [address], 04/11/2025 04:16:36 lipid panel, serum 2024 025 [employer] [facility], [address], [place], [address], 04/11/2025 04:16:36 TSH + free T4, serum 2024 025 [employer] [facility], [address], [place], [address], 04/11/2025 04:16:36 CMP, serum or plasma 2024 025 [employer] [facility], [address], [place], [address], 04/11/2025 04:16:37 CBC w/ auto diff 2024 025 [employer] [facility], [address], [place], [address], 04/11/2025 04:16:37 Referral diabetic ophthalmo logy referral - Please call patient to schedule an appointme nt. Thank you. 2024 025 [email or web address], [address], [place], [address], 04/07/2025 09:45:39 pulmonolo gist referral - Please call patient to schedule an appointme nt. Thank you. 2024 025 Mari Garcia [employer], [address] [facility], [place], [address], 01/17/2025 14:59:29 obstetric marquez and gynecolog ist referral - Please call patient to schedule an appointme nt. Thank you. 2024 025 [email or web address] [facility], [address] [facility] [address], [place], [address], 04/07/2025 09:45:23 orthopedi c surgeon referral 2024 025 [email or web address] [facility], [address], [place], [address], 03/29/2025 17:58:25 obstetric marquez and gynecolog ist referral 2024 025 [facility], [address] [place] [address] [address], [place], [address], 12/27/2024 10:06:29 Procedures None recorded. Surgeries None recorded. Imaging home sleep study - Please call patient to schedule. 2024 025 [facility] [place], [address] [place], [address], 02/15/2025 10:30:15 Medication Orders Zithromax Z-Saw 250 mg tablet 2024 025 [facility], [address] [place], [address], 01/05/2025 14:33:41 Diflucan 150 mg tablet 2024 025 [facility], [address] [place], [address], 01/05/2025 14:33:46 fluticaso ne propionat e 50 mcg/actua tion nasal spray,lyla pension 2024 025 [facility], [address] [place], [address], 01/05/2025 14:33:54 cetirizin e 10 mg tablet 2024 025 [facility], [address] [place], [address], 09/23/2024 15:06:50 Patient TargetsNo targets recorded. Patient InstructionsNo instructions recorded. Reason for Referral [facility]necolog[facility] t Referral for Gynecologic examination Referring Physician: Gasper Richey Internal [facility], Encounter Date: 09/23/2024 Orthopedic Surgeon Referral for Pain of left knee joint Referring Physician: Gasper Richey Internal Medicine, Encounter Date: 09/23/2024 [facility] Referral for Well woman health examination Please call patient to schedule an appointment. Thank you. Referring Physician: Gasper Richey Internal Medicine, Encounter Date: 01/05/2025 Diabetic Ophthalmology Refer ral for Hyperglycemia Please call patient to schedule an appointment. Thank you. Referring Physician: Gasper Richey Internal Medicine, Encounter Date: 01/05/2025 Medical Care Manager Referral for D isorder of respiratory system suspected Please call patient to schedule an appointment. Thank you. Referring Physician: Gasper Richey Internal Medicine, Encounter Date: 01/05/2025 Results Created Date Observation Date Name Description Value Unit Range Abnormal Flag Note LastModifiedBy Organization Detail LastModifiedTime 09/18/1909/17/2024 CT, brain , w/o contr ast No observ ation record ed. [address], [address], 11/02/2024 17:37:41 09/21/19 25 09/20/2024 CT, brain , w/o contr ast No observ ation record ed. [address] [place] [address], [address], 11/02/2024 17:38:03 09/21/19 25 09/20/2024 CT, neck, soft tissu e, w/o contr ast No observ ation record ed. [address], [address], 11/02/2024 17:38:27 08/11/30 2402/10/2025 home sleep study No observ ation record ed. [facility] [address] [place], [address], 02/22/2025 17:41:41 Result Notes None recorded. Problems Name Problem SNOMED Code Status Onset Date Resolution Date Notes Provider Name and Address Organization Details Recorded Time Hypothyroid ism 49205862 Active 2019 Mickey Siddiqui MD [address], [place], [address], [employer] 13:43:08 Thyroid nodule 541965597 Active 2021 Mickey Siddiqui MD [address], [place], [address], [employer] 13:43:01 Impaired fasting glycemia 349870810 Active 2021 Mickey Siddiqui MD [address], [place], [address], [employer] 13:43:06 Generalized anxiety disorder 10914869 Active 2022 Mickey Siddiqui MD [address], [place], [address], [employer] 13:43:12 Migraine 92513041 Active 2022 Mickey Siddiqui MD [address], [place], [address], [employer] 13:43:04 Tear of meniscus of knee 513665866 Active 2023 Mickey Siddiqui MD [address], [place], [address], [employer] 13:43:03 Herpes labialis 2021674 Active 2023 Mickey Siddiqui MD [address], [place], [address], [employer] 13:43:10 Essential hypertensio n 25036779 Active 2024 Mickey Siddiqui MD [address] [facility], [address], [place], [address], [employer] 13:43:18 Gastro-esop hageal reflux disease with esophagitis 196040681 Active 2024 Mickey Siddiqui MD [address] [facility], [facility] [address], [place], [address], [employer] 13:43:14 Daytime hypersomnia 2114144326486 2 Active 2024 Mari Garcia NP [address] [facility], [facility] [address], [place], [address], [employer] 10:08:31 Notes:Medical History: Anxie ty Migraine headaches Rhinitis Right nasoseptal deviation Obesity Hypertension Hypothyroidism Left thyroid nodule IFG MELODY HSV-1 infection Left medial meniscus tear Signed SLIM - Prasanna Carrasquillo & Jaida Bran Problem Notes None recorded. Procedures Surgical History Date Name Laterality Status Provider Name and Address Organization Details Recorded Time Knee arthroscopy /surgery completed WALLACE Trejo [employer] [facility] 12/16/2023 11:29:13 Imaging Results None recorded. Procedure Notes None recorded. Medical Equipment None Reported. Allergies Allergen ID Allergen Name Allergen Category Reaction Reaction Severity Criticality Documentation Date Start Date Code Code System Note Provider Name and Address Organization Details Recorded Time 4858 Product containin g penicilli n (product) medicatio n anaphylax is Not available Not available 09/11/2022 02524 8001 SNOMED Not Available [facility] 3 03:04:07 Medications Name Sig Start Date Stop [...] capsule twice a day by oral route. 09/23 completed Not Available Not Available Not Available clindamycin HCl 300 mg capsule 10/13 completed Not Available Not Available Not Available cetirizine 10 mg tablet TAKE 1 TABLET BY MOUTH ONCE DAILY NEEDED active Not Available Not Available No t Available azithromyci n 250 mg tablet TAKE 2 TABLETS BY MOUTH ON DAY 1, AND THEN TAKE 1 TABLET BY MOUTH ONCE A DAY ON DAY 2 THROUGH DAY 5 01/05 completed Not Available Not Available Not Available ibuprofen 800 mg tablet active Not Available Not Available Not Available fluconazole 150 mg tablet TAKE 1 TABLET BY MOUTH EVERY DAY NEEDED FOR 1 DAY. 01/05 completed Not Available Not Available Not Available valacyclovi r 1 gram tablet TAKE [...] TAKE 1 TABLET BY MOUTH ONCE DAILY 09/23 completed Not Available Not Available Not Available [...] BY MOUTH TWICE DAILY FOR 3 DAYS PRN active Not Available Not Available No t [...] TAKE 1 TABLET BY MOUTH TWICE DAILY PRN active Not Available Not Available No t [...] 20 mg by injection route. 10/27 completed [facility]: 0003- 0494- 20 Not Available Not Available Not Available dexamethaso ne 1 mg tablet TAKE 1 TABLET BY MOUTH AT 10 PM NIGHT BEFORE 8 AM CORTISOL active Not Available Not Available No t [...] TAKE 1 TABLET BY MOUTH ONCE DAILY 09/23 completed Not Available Not Available Not Available Synthroid 75 mcg tablet Take 1 [...] a dose pack TAKE DIRECTED ON PACKAGE 01/05 completed Not Available Not Available Not Available norethindro ne (contracept deepa) 0.35 mg tablet active Not Available Not Available No t Available ondansetron 4 mg disintegrat ing tablet 10/13 completed Not Available Not Available Not Available fluticasone propionate 50 mcg/actuati on nasal spray,suspe nsion USE 1 SPRAY(S) IN EACH NOSTRIL ONCE DAILY 01/05 completed Not Available Not Available Not Available [...] Body weight Body temperature Heart rate Systolic And Diastolic Provider Name and Address Organization Details Last Updated DateTime 5 172.72 cm 34.2 kg/m2 183150. 28 g 97.6 [degF] 90 /min 120/76 mm[Hg] WALLACE Trejo [facility] [employer] [facility] 5 14:39:59 Date Recorded Body height Body mass index (BMI) Body weight Body temperature Heart rate Oxygen saturation Oxygen saturation in Arterial blood by Pulse oximetry Systolic And Diastolic Provider Name and Address Organization Details Last Updated DateTime 5 172.72 cm 33.6 kg/m2 261703. 91 g 97.6 [degF] 90 /min 99 % 99 % 122/76 mm[Hg] Sarah Lopez Bettie [facility] 5 11:48:48 Date Recorded Body height Body mass index (BMI) Body weight Body temperature Heart rate Oxygen saturation Oxygen saturation in Arterial blood by Pulse oximetry Pain severity - 0-10 verbal numeric rating [Score] - Reported Systolic And Diastolic Provider Name and Address Organization Details Last Updated DateTime 5 172.72 cm 34.4 kg/m2 706404. 88 g 98.2 [degF] 90 /min 97 % 97 % 3 124/72 mm[Hg] Emma Guzman MA [facility] [employer] [facility] 5 14:32:56 Date Recorded Body height Body mass index (BMI) Body weight Body temperature Heart rate Oxygen saturation Oxygen saturation in Arterial blood by Pulse oximetry Systolic And Diastolic Provider Name and Address Organization Details Last Updated DateTime 5 172.72 cm 34.4 kg/m2 118250. 88 g 98.7 [degF] 70 /min 97 % 97 % 122/74 mm[Hg] Bessie Schafer MA [facility] [employer] [facility] 5 10:56:42 Date Recorded Body height Body mass index (BMI) Body weight Body temperature Heart rate Oxygen saturation Oxygen saturation in Arterial blood by Pulse oximetry Systolic And Diastolic Provider Name and Address Organization Details Last Updated DateTime 5 172.72 cm 41.4 kg/m2 433723. 12 g 97.6 [degF] 74 /min 96 % 96 % 116/72 mm[Hg] Tanya Gaona RN [facility] 5 09:56:42 Social History Question Answer Notes LastModified by Organization Details LastModified Time Tobacco Smoking Status Former Smoker quit 08/31/2014 Not Available [employer] 09/11/2022 02:46:21 Do You Have An Advance Directive? No Information not available 11/19/2022 What Is Your Level Of Caffeine Consumption? Moderate MIGRATION.0301 [id number] Information not available 09/11/2022 How Much Tobacco Do You Chew? None MIGRATION.0301 [id number] Information not available 09/11/2022 In The 14 Days Before Symptom Onset, Have You Had Close Contact With A [facility] While That Case Was Ill? No MIGRATION.0301 161620 Information not available 09/11/2022 In The 14 Days Before Symptom Onset, Have You Had Close Contact With A Person Who Is Under Investigation For COVID-19 While That Person Was Ill? No MIGRATION.030 259914 Information not available 09/11/2022 What Type Of Diet Are You Following? REGULAR MIGRATION.030 136505 Information not available 09/11/2022 Which Illicit Or Recreational Drugs Have You Used? None MIGRATION.030 927526 Information not available 09/11/2022 What Is The Highest Grade Or Level Of School You Have Completed Or The Highest Degree You Have Received? [id number] MIGRATION.030 768699 Information not available 09/11/2022 Do You Have An Electrostatic Air Filter? No Information not available 01/24/2025 Have There Been Any Changes To Your Family Or Social Situation? No Information not available 11/19/2022 What Is The Fluoride Status Of Your Home? Unknown Information not available 11/19/2022 When Did You Quit Smoking? 6-10yearssincelast cigarette Information not available 12/16/2023 Are There Any Guns Present In Your Home? No Information not available 11/19/2022 Do You Have A Humidifier? No Information not available 01/24/2025 Where Do You Live? SingleLevelHouse Information not available 11/19/2022 Do You Have A Medical Power Of Us Customs And Border Officer? No Information not available 11/19/2022 Do You Have Moisture Problems In Your Home? No Information not available 01/24/2025 What Was The Date Of Your Most Recent Tobacco Screening? 01/24/2025 Information not available 01/24/2025 Do You Have Any Pets? Yes Information not available 11/19/2022 What Is Your Relationship Status? MIGRATION.030 [id number] Information not available 09/11/2022 Do You Use Your Seat Belt Or Car Seat Routinely? Yes Information not available 01/24/2025 Do You Have Smoke And Carbon Monoxide Detectors In Your Home? Yes Information not available 11/19/2022 At What Age Did You Start Smoking Tobacco? 12 MIGRATION.0301 [id number] Information not available 09/11/2022 Are You Passively Exposed To Smoke? Yes Information not available 11/19/2022 Are There Any Smokers In Your House? Yes Nusband But Smokes Outside Information not available 11/19/2022 How Much Tobacco Do You Smoke? No Was 1ppd Information not available 11/19/2022 Have You Recently Traveled Abroad? No MIGRATION.0301 524314 Information not available 09/11/2022 Sex: Female Functional Status Question Answer Note LastModified by Organizat ion Details LastModified Time Do you use any illicit or recreational drugs? No MIGRATION.337010 8393 Information not available 09/11/2022 Do you or have you ever used any other forms of tobacco or nicotine? No Information not available 11/19/2022 What is your level of alcohol consumption? None MIGRATION.297709 0511 Information not available 09/11/2022 Are you currently employed? Yes Information not available 01/24/2025 Have you been exposed to chemicals or toxins? 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 Moderate MIGRATION.996132 0272 Information not available 09/11/2022 Mental Status Question Answer Note LastModified by Organization D etails LastModified Time Do you feel stressed (tense, restless, nervous, or anxious, or unable to sleep at night)? [id number] Information not available 11/19/2022 Family History Relationship Description Onset Age of this Age Resolved Age Notes LastModified by Organization Details LastModified Time Father Malignant neoplasm of lung MIGRATION.117 [id number] Not available 09/11/2022 02:48:35 Mother Schizophreni a MIGRATION.189 0675561 Not available 09/11/2022 02:48:35 Mother Chronic obstructive pulmonary disease MIGRATION.449 8056684 Not available 09/11/2022 02:48:35 Mother Pulmonary emphysema MIGRATION.152 3683336 Not available 09/11/2022 02:48:35 Mother Blood coagulation disorder MIGRATION.082 4223201 Not available 09/11/2022 02:48:35 Maternal Grandfather Type 2 diabetes mellitus MIGRATION.476 [id number] Not available 09/11/2022 02:48:35 Maternal Grandfather Hypertensive disorder MIGRATION.451 6018200 Not available 09/11/2022 02:48:35 Maternal Grandfather Malignant neoplasm of colon MIGRATION.257 0329599 Not available 09/11/2022 02:48:35 Maternal Grandfather Congestive heart failure MIGRATION.413 6321158 Not available 09/11/2022 02:48:35 Maternal Grandfather Family history of malignant neoplasm MIGRATION.289 2644370 Not available 09/11/2022 02:48:35 Maternal Grandfather Kidney finding MIGRATION.317 5071098 Not available 09/11/2022 02:48:35 Maternal Grandfather Arthritis MIGRATION.014 9657462 Not available 09/11/2022 02:48:35 Maternal Grandfather Heart disease MIGRATION.135 7328622 Not available 09/11/2022 02:48:35 Maternal Grandfather MIGRATION.588 5531776 Not available 09/11/2022 02:48:35 Maternal Grandmother Type 2 diabetes mellitus MIGRATION.492 [id number] Not available 09/11/2022 02:48:35 Maternal Grandmother Hypertensive disorder MIGRATION.169 2671020 Not available 09/11/2022 02:48:35 Maternal Grandmother Family history of malignant neoplasm MIGRATION.151 5287225 Not available 09/11/2022 02:48:35 Maternal Grandmother Ulcer MIGRATION.876 0585485 Not available 09/11/2022 02:48:36 Maternal Grandmother Arthritis MIGRATION.791 1654339 Not available 09/11/2022 02:48:36 Paternal Grandfather Type 2 diabetes mellitus MIGRATION.446 0643908 Not available 09/11/2022 02:48:36 Paternal Grandfather MIGRATION.403 7829027 Not available 09/11/2022 02:48:36 Paternal Grandfather Alzheimer's disease MIGRATION.061 0776855 Not available 09/11/2022 02:48:36 Paternal Grandmother Type 2 diabetes mellitus MIGRATION.295 7048539 Not available 09/11/2022 02:48:36 Sister Fibromyalgia MIGRATION.0 30 [id number] Not available 09/11/2022 02:48:36 Medical History Condition Response ARTHRITIS Y HEADACHES/MIGRAINES Y OBESITY HYPOTHYROIDISM Y Gynecological History Statement/Question Response How many live births 2 Date of Last Pap Current Control Method Partner Vas ectomy Date of LMP Obstetrics History GPAL:G 2 P 2 0 0 2 Type Value Multiple Births 0 Full Term 2 Induced 0 Spontaneous 0 Premature 0 Living 2 Ectopics 0 Total 2 Past Encounters Encounter ID Performer Location Encounter Start Date Encounter Closed Date Diagnosis/Indication Diagnosis SNOMED-CT Code Diagnosis ICD10 Code Diagnosis IMO Codes Diagnosis Note [id number] Gasper portillo MD [facility] [place] Internal Med [facility] [address] [address] 09/13/2020 00:00:00 09/13/2020 18:08:25 [id number] Gasper portillo MD [facility] [place] Internal Med [facility] [address] [address] 03/22/2021 00:00:00 03/22/2021 18:02:26 [id number] Myriam Jackson MD [facility] [place] [address] [place] [address] 03/30/2021 00:00:00 03/30/2021 14:56:00 [id number] [facility] [place] [address] [place] [address] 01/11/2022 00:00:00 01/11/2022 18:37:21 [id number] Gasper portillo MD [facility] [place] Internal Med [facility] [address] [address] 11/19/2022 15:46:22 11/19/2022 16:24:24 Screening - NAD 759805594 Z13.9 Does not do flu shotUTD on Tdap 2 years ago Get COVID 19 vaccine, she states that she will not get this as her body can 'fight any virus off, claims that this is just like the flu virus, advised on the COVID 19 symptoms and to follow all CDC guidelines PAP: Dr Francis referred 03/22/2021 , referred 11/19/2022 RTC in 6 monthswith labsER if tal did verbalize her understand ing of the above Hypothyroidism 26192630 E03.9 OV 03/22/2021 :US thyroid 03/08/2021 , reluctant to get any ENT referralCa n repeat the US thyroid in [address] Jackson, next apt 03/30/2021 On synthroid 88mcgs daily OV 11/19/2022 :On tirosint 100mcgs daily, get labs, given by Dr Jackson Gastroesop hageal reflux disease without esophagitis 058228459 K21.9 Feels some bloatingCa n do OTC PPI and fiberIf not better may need EGD OV 11/19/2022 : Does well now, no complaints Generalize d anxiety disorder 48020338 F41.1 Has seen Arnel Glover NPNot suicidal or homicidal She is not on any medsShe states that she is doing very well now, is coping with reading books Migraine 70846572 G43.90 9 Get with neurology, and she is to schedule this again OV 10/23/17:S he did see Dr Luis, and she will contact his office in one month OV 06/10/18:D oing well at this timeSees Dr Luis OV 10/13/18:D oing well at this time OV 11/04/18:D id see Dr Chong doing well today Addendum: 01/11/19:John Ga 12/08/18 neurology, is to get on [...] 11/19/2022 :Is doing well Long-term drug therapy 101196937 Z79.899 Vitamin D deficiency 347 41679 E55.9 Gynecologi c examination 89499820 Z01.039 [id number] Cr Baca MD [facility] [place] [address] [place] [address] 07/25/2023 11:08:06 07/25/2023 12:07:33 Pain of left knee joint 4295984084 65547 M25.562 Derangemen t of left knee 8960154058 7243140 M23.92 [id number] Bear Vásquez MD [facility] [place] [address] [place] [address] 08/29/2023 10:16:03 08/29/2023 10:39:35 Derangement of left knee 3538079401 9708342 M23.92 Pain in left knee 750588 9609 46608 M25.562 Tear of me niscus of knee 371264605 S83.242D [id number] Bear Vásquez MD [facility] [place] [address] [place] [address] 09/03/2023 14:42:07 09/03/2023 16:08:29 Pain of left knee joint 1641296725 53586 M25.562 Tear of me dial meniscus of knee 134367426 S83.242A [id number] Bear Vásquez MD [facility] [place] [address] [place] [address] 10/01/2023 13:58:23 10/01/2023 14:26:19 Derangement of left knee 2418156733 8676449 M23.92 [id number] Bear Vásquez MD [facility] [place] [address] [place] [address] 11/04/2023 08:39:02 11/04/2023 09:04:07 Pain of left knee joint 9416520907 41619 M25.676 [id number] Gasper portillo MD [facility] [place] [facility] [address] [facility] [place] [address] 12/16/2023 11:19:47 12/16/2023 12:07:16 Screening - NAD [id number] Z13.9 Does not do flu shotUTD on Tdap 2 years ago Get COVID 19 vaccine, she states that she will not get this as her body can 'fight any virus off, claims that this is just like the flu virus, advised on the COVID 19 symptoms and to follow all CDC guidelines PAP: Dr Francis referred 03/22/2021 , referred 11/19/2022 , 12/16/2023 RTC in 6 monthswith labsER if worseshe did verbalize her understand ing of the above Hypothyroidism 78111730 E03.9 OV 03/22/2021 :US thyroid 03/08/2021 , reluctant to get any ENT referralCa n repeat the US thyroid in [address] Jackson, next apt 03/30/2021 On synthroid 88mcgs daily OV 11/19/2022 :On tirosint 100mcgs daily, get labs, given by Dr Jackson OV 12/16/2023 : Not on any meds, get labs Gastroesop hageal reflux disease without esophagitis 156330968 K21.9 Feels some bloatingCa n do OTC PPI and fiberIf not better may need EGD OV 11/19/2022 : Does well now, no complaints Generalize d anxiety disorder 57225542 F41.1 Has seen Arnel Glover NPNot suicidal or homicidal She is not on any medsShe states that she is doing very well now, is coping with reading books Migraine 07259147 G43.90 9 Get with neurology, and she is to schedule this again OV 10/23/17:S he did see Dr Luis, and she will contact his office in one month OV 06/10/18:D samantha well at this timeSees Dr Luis OV 10/13/18:D samantha well at this time OV 11/04/18:D id see Dr Chong doing well today Addendum: 01/11/19:John Ga 12/08/18 neurology, is to get on [...] on any meds Vitamin D deficiency 347 26776 E55.9 Gynecologi c examination 20224408 Z01.419 Pain of le ft knee joint [id number] 08754 M25.562 S/p surgery Dr Vásquez 09/18/2023 , last ortho visit 11/04/2023 , wants a second opinion as she still has some L knee pain, will refer to Dr Baca Cholesterol screening 27 9189509 Z13.220 Get labs Herpes labialis 0242589 B00.1 No symptoms, wants a refill on the valacyclov ir renew 12/16/2023 [id number] Gasper portillo MD [facility] [address] [facility], [address] [place] [address] 09/23/2024 14:27:02 09/23/2024 15:09:21 Hypothyroidism 48054510 E03.9 OV 03/22/2021 :US thyroid 03/08/2021 , reluctant to get any ENT referralCa n repeat the US thyroid in [address] Jackson, next apt 03/30/2021 On synthroid 88mcgs daily OV 11/19/2022 :On tirosint 100mcgs daily, get labs, given by Dr Jackson OV 12/16/2023 : Not on any meds, get labs OV 09/23/2024 :On Unithroid 100mcgs dailyOn propranolo l 10mg bidGiven by Dr Jackson Screening - NAD 24656660 3 Z13.9 Does not do flu shotUTD on Tdap 2 years ago Get COVID 19 vaccine, she states that she will not get this as her body can 'fight any virus off, claims that this is just like the flu virus, advised on the COVID 19 symptoms and to follow all CDC guidelines PAP: Dr Francis referred 03/22/2021 , referred 11/19/2022 , 12/16/2023 RTC in 3 monthswith labsER if worseshe did verbalize her understand ing of the above Gastroesop hageal reflux disease without esophagitis 216397825 K21.9 Feels some bloatingCa n do OTC PPI and fiberIf not better may need EGDDoes well now, no complaints Generalize d anxiety disorder 58708966 F41.1 Has seen Arnel Glover NPNot suicidal or homicidal She is not on any medsShe states that she is doing very well now, is coping with reading books Migraine 65783926 G43.90 9 Get with neurology, and she [...] on any meds Vitamin D deficiency 347 65311 E55.9 Gynecologi c examination 26395432 Z01.419 Pain of le ft knee joint 2013342837 34754 M25.562 S/p surgery Dr Vásquez 09/18/2023 , last ortho visit 11/04/2023 , wants a second opinion as she still has some L knee pain, will refer to Dr Baca Cholesterol screening 27 8970788 Z13.220 Get labs Herpes labialis 0024184 B00.1 No symptoms, wants a refill on the valacyclov ir renew 12/16/2023 Nasal discharge 23860143 J00 [facility] soft tissue neck 09/20/2024 Now does well, will get on flonase and cetrizineN otify if not betterER if worse Essential hypertension 40657984 I10 BP stableKeep BP logs and RTC in 2 weeks, not on any medication s at this time [id number] Gasper portillo MD [facility] [address] [facility], [facility] [address] [place] [address] 10/19/2024 11:35:56 10/19/2024 12:34:05 Upper respiratory infection 90921935 J06.9 Has noted sore throat, and hoarseness , no chest pain or SOB, no fevers or chillsGet on Z-pack and also needs to get diflucanNo tify if not better, ER if worseShe is very appreciati ve to this plan of care [id number] Gasper portillo MD [facility] [place] Primary Care [facility] [address] [place] [address] 01/05/2025 14:24:00 01/05/2025 15:16:22 Screening due 350004954 Z13.9 20762837 Does not do flu shotUTD on Tdap 2 years agoGet COVID 19 vaccine, she states that she will not get this as her body can 'fight any virus off, claims that this is just like the flu virus, advised on the COVID 19 symptoms and to follow all CDC guidelines PAP: Dr Francis referred 03/22/2021 , referred 11/19/2022 , 12/16/2023 RTC in 3 monthswith labsER if worseshe did verbalize her understand ing of the above Gastro-eso phageal reflux disease with esophagitis 629126032 K21.00 8934750499 Feels some bloating Can do OTC PPI and fiber If not better may need EGD Does well now, no complaints Generalize d anxiety disorder 56605818 F41.1 331176 Has seen Arnel Glover NPNot suicidal or homicidal She is not on any medsShe states that she is doing very well now, is coping with reading books Migraine 51085675 G43.90 9 70815022 Get with neurology, and she is to schedule this again OV 10/23/17:S he did see Dr Luis, and she will contact his office in one month OV 06/10/18:D oimorro well at this timeSees Dr Luis OV 10/13/18:D samantha well at this time OV 11/04/18:D id see Dr hCong doing well today Addendum: 01/11/19:D tami Ga [...] : Does well not on any meds Hypothyroidism 28347357 E03.9 99348566 On Unithroid 100mcgs dailyOn propranolo l 10mg bidGiven by Dr Jackson Pain of le ft knee joint 5189506172 70495 M25.562 033872 S/p surgery Dr Vásquez 09/18/2023 , last ortho visit 11/04/2023 , wants a second opinion as she still has some L knee pain, will refer to Dr Baca Herpes labialis 2119208 B00.1 07767 No symptoms, on the valacyclov ir renewed 10/19/2024 Essential hypertension 06066190 I10 31900 BP stableNot on any medication s at this time [facility] woman [facility] examination 505158993 Z01.419 270813 Hyperlipid emia screening 902545691 Z13.220 112186 Get labs Vitamin D below reference range 641665961 R79.89 10518458 Serum siria min B12 below reference range 777410634 E53.8 83103179 Hyperglycemia 61915594 R 73.[address] Zepeda labs Disorder o f respiratory system suspected 100299200 R29.818 27065981 [id number] Mari Garcia NP [facility] [place] [facility] [address] [facility] [address] [place] [address] 01/24/2025 10:37:02 01/25/2025 15:21:50 Sleep apnea 82359772 G47.30 G47.33 G47.10 04318188 Sleep study order todayESS-1 1Discussed sleep hygeineAdv ised good sleep habits and patterns:- Set a goal for at least 7 to 8 hours of sleep time per day-Use the bed mainly for sleep and to go to bed only when tired. If unable to fall asleep after 30 minutes, patient should get out of bed but should not engage in any activity that requires sustained mental alertness. -Maintain a bedtime and wake-up time even on weekends or day off of work.-Avoi d excessive naps during the daytime. If a nap is necessary, limit to no more than 30 minutes.-M inimize enviroment al noise, bright lights, and extremitie s in bedroom temperatur es.-Avoid alcohol, caffeinate d beverages, and nicotine products for at least 6 hours prior to bedtime.-A void strenuous exercise and large meals for at least 4 hours prior to bedtime.-D iscussed reportable signs and symptoms of concern Body mass index 30+ - obesity 947409040 Z68.34 956614 Encourage healthy diet and exercise to improve weightdisc ussed weight effect on sleep and sleep apnea [id number] MD ABRAHAM Riggins_[facility] [place] [facility] [place] [address] [place] [address] 03/01/2025 09:45:52 03/03/2025 10:07:54 Daytime hypersomnia 1725924621 9102 G47.10 02891581 AHI-< 1-normal studyFollo w-up in a year if concerns remain for sleep apneaESS-1 0F/u with primaryDis cussed sleep hygeineAdv ised good sleep habits and patterns:- Set a goal for at least 7 to 8 hours of sleep time per day-Use the bed mainly for sleep and to go to bed only when tired. If unable to fall asleep after 30 minutes, patient should get out of bed but should not engage in any activity that requires sustained mental alertness. -Maintain a bedtime and wake-up time even on weekends or day off of work.-Avoi d excessive naps during the daytime. If a nap is necessary, limit to no more than 30 minutes.-M inimize enviroment al noise, bright lights, and extremitie s in bedroom temperatur es.-Avoid alcohol, caffeinate d beverages, and nicotine products for at least 6 hours prior to bedtime.-A void strenuous exercise and large meals for at least 4 hours prior to bedtime.-D iscussed reportable signs and symptoms of concern.F/ u as needed Health Concerns Section Related Observation LastModified by Organization Detai ls LastModified Time None Recorded Concern Status LastModified by Organization Details LastModified Time None Recorded Advance Directives Directive N: Payers Insurance Date Sequence Insurance Name Policy Number Policy Prather Covered Member ID Prather Member ID Guarantor Name 03/01/2025 1 [facility] - [employer] [facility] - DOS PRIOR TO 2025 (MEDICAID REPLACEMENT - HMO) [id number] Linda Carrasquillo [id number] Linda Carrasquillo 07/23/2023 1 [employer] - OPEN ACCESS NETWORK (PPO) [id number] Prasanna Carrasquillo [id number] Linda Carrasquillo 03/03/2025 1 [place] Linda Carrasquillo [id number] Linda Carrasquillo 03/21/2025 1 [facility] - [employer] - DOS ON OR AFTER 2025 (MEDICAID REPLACEMENT - HMO) [id number] Linda Carrasquillo [id number] Linda Carrasquillo Notes Date Note Type Note Provider Name and Address Organization Details Recorded Time 09/23/2024 text/html OV 12/02/16Here to establish carePrior PMD [...] [facility] and is doing [...] Jackson, and had labs but not done recentlyShe is doing well OV 03/22/2021:Here for her routine aptShe is doing very wellIs adamant that she does not want to get the COVID 19 vaccine, she states that no one in her family has had the vaccine for COVID 19She has done her US thyroid OV 11/19/2022: Here for her f/u apt, not seen since 04/03, does well, needs to do labs OV 12/16/2023: Here for her f/u apt, she is doing very well today, no recent labs OV 09/23/2024: Here for her ER f/u, see case on 09/20/2024, does well now Gasper Richey MD [address] [facility], [address], [place], [address], [place] [facility] [employer] 10/19/2024 18:39:06 10/19/2024 text/html OV 12/02/16Here to establish carePrior PMD [...] labs [facility] and is doing [...] Jackson, and had labs but not done recentlyShe is doing well OV 03/22/2021:Here for her [...] doing very well today, no recent labs OV 09/23/2024: Here for her ER f/u, see case on 09/20/2024, does well now OV 10/19/2024: ACVURI sx, c/o sore throat and hoarseness of voice, no fevers or chills, no chest pain or SOB, no cough, states that her children are sick at home Gasper Richey MD [address] [place] [address], [facility] [address], [place], [address], [place] [facility] [employer] 10/19/2024 14:29:52 01/05/2025 text/html OV 12/02/16Here to establish carePrior PMD [...] labs [facility] and is doing [...] Jackson, and had labs but not done recentlyShe is doing well OV 03/22/2021:Here for her routine aptShe is doing very wellIs adamant that she does not want to get the COVID 19 vaccine, she states that no one in her family has had the vaccine for COVID 19She has done her US thyroid OV 11/19/2022: Here for her f/u apt, not seen since 04/03, does well, needs to do labs OV 12/16/2023: Here for her f/u apt, she is doing very well today, no recent labs OV 09/23/2024: Here for her ER f/u, see case on 09/20/2024, does well now OV 10/19/2024: ACVURI sx, c/o sore throat and hoarseness of voice, no fevers or chills, no chest pain or SOB, no cough, states that her children are sick at home OV 01/05/2026: Here for her f/u aptShe is doing well, she has to see Dr Jackson and is waiting to get labs thru her office also Gasper Richey MD [address] [place] [address], [facility] [address], [place], [address], [facility] [employer] 01/05/2025 15:20:56 01/24/2025 text/html Obstructive Slee p ApneaReported by PatientHPIFor associated symptoms, patient reportsmorning dry mouth,morning headache,postnasal drip,night sweats,daytime sleepiness,suddenly falling asleep during the day,excess napping,impaired work performance,nasal congestion,loud snoring,mouth breathing,hyperactivity ,poor concentration,amnesia, andirritabilitybut reportsno dysphagia,no awakening short of breath,no gasping for air,no witnessed apnea, andno hyponasal speech. For severity, patient reportsworsening. For timing, patient reportsdaily. For duration, patient reportsfrequent. For context, patient reportshypertension,gas troesophageal reflux disease,family history of sleep disorder, andsleep hours per night6. For aggravating factors, patient reportsnone. For alleviating factors, patient reportsnone.hx hashimotosformer smoker Mari Garcia NP [address] [facility], [facility] [address], [place], [address], [employer] 01/24/2025 11:14:51 03/01/2025 text/html ROS as noted in the HPI Patient is here for sleep study follow-up. She denies any changes since last visit. Remains tired throughout the day. She denies any other complaints. Mari Garcia NP [address] [place] [address], [place], [address], [employer] 03/01/2025 10:10:59 OBGyn Episode No OBEpisode recorded.
[2025-04-17 14:20] VITALS: BP 111/70; PULSE 66; RESP 20; TEMP 36.7; O2SAT 100
--- NOTE | 2025-04-17 15:14 | ED_ITS ---
HPI - Skin/Abscess/Foreign Bdy General Chief complaint: Skin/Abscess/Foreign Body Stated complaint: Insect Bites Time Seen by Provider: 04/17/25 15:00 Source: patient and RN notes reviewed Mode of arrival: ambulatory Limitations: no limitations History of Present Illness HPI narrative: 34-year-old female presents Express Care complaining of possible bug bites. Patient has been going on for a little over week. Patient is unsure what is biting her. Patient says no one else is being bit in the house, she sees the says he does not have any bug bites on him. Patient reports they are pruritic and she continues to get more bumps. Patient denies any fevers, body aches, chills, nausea vomiting, diarrhea, chest pain and shortness of breath, redness symptoms. Patient also requesting treatment for vaginal yeast infection nausea reports cottage cheese like discharge in vaginal irritation, she denies any concerns for STIs. Related Data Allergies Allergy/AdvReac Type Severity Reaction Status Date / Time Penicillins Allergy Unknown Anaphylaxis Verified 09/20/24 16:15 RED ONION Allergy Unknown ITCHY Uncoded 09/20/24 16:15 THROAT Review of Systems Review of Systems: CONSTITUTIONAL: Denies fever, chills, or sweats. EYES: Denies visual changes, redness, or discharge. ENT: Denies rhinorrhea, congestion, sore throat, or otalgia. CARDIOVASCULAR: Denies chest pain, palpitations, or edema. RESPIRATORY: Denies cough or dyspnea. GASTROINTESTINAL: Denies abdominal pain, nausea, vomiting, or diarrhea. GENITOURINARY: Denies dysuria or hematuria. Positive vaginal discharge. SKIN: Positive for insect bites and itching. MUSCULOSKELETAL: Denies back pain, joint pain, or myalgia. NEUROLOGIC: Denies headache, numbness, or weakness. PSYCHIATRIC: Denies anxiety or depression. All other systems reviewed are negative, except as documented in HPI. PMFSH Social History Social History Smoking status: Former smoker Alcohol intake: never Comments At the time of my signature, I reviewed and agree with the nursing past medical, surgical, social, and family history. There is no relevant family history pertinent to the patient complaint. Exam Narrative: GENERAL: This is a well-nourished, well-developed adult, in no apparent distress. They are non ill-appearing, nontoxic appearing. HEAD: normocephalic, atraumatic. EYES: Sclera clear/white. Conjunctiva normal. Vision is grossly intact. Extraocular movements intact EARS: External ears normal, Hearing grossly intact. NOSE: External nose normal THROAT: Mucous membranes moist, NECK: Neck supple, CARDIOVASCULAR: Regular rate and rhythm RESPIRATORY: Respiratory rate normal, respiratory effort nonlabored, no respiratory distress GENITOURINARY: Patient declined pelvic exam. SKIN: Papular lesions with puncture wounds present scattered scantly throughout the patient's back, posterior upper thighs, neck. There scabbed over. Nontender to palpate, no reflux as, no induration, no exudate, no surrounding cellulitis. NEURO: awake, alert, and oriented to person, place and time. There were no obvious focal neurologic abnormalities. EXTREMITIES: No joint tenderness, effusion, or edema noted. Course Course Emergency Course: Portions of this record may have been created with voice recognition software Level of Care: Express Care Visit Vital Signs Vital signs: Vital Signs Temperature 98.1 F 04/17/25 14:20 Pulse Rate 66 04/17/25 14:20 Respiratory Rate 20 04/17/25 14:20 Blood Pressure 111/70 04/17/25 14:20 Pulse Oximetry 100 04/17/25 14:20 Oxygen Delivery Room Air 04/17/25 14:20 Temperature 98.1 F 04/17/25 14:20 Pulse Rate 66 04/17/25 14:20 Respiratory Rate 20 04/17/25 14:20 Blood Pressure 111/70 04/17/25 14:20 Pulse Oximetry 100 04/17/25 14:20 Oxygen Delivery Room Air 04/17/25 14:20 Reviewed MDM - Skin/Abscess/Foreign Bdy MDM Narrative Medical decision making narrative: Appears patient has insect bites, unsure what is biting her. Will prescribe triamcinolone cream to help with itchiness. Patient also requesting treatment for vaginal yeast infection, or symptoms appear consistent with it, fluconazole sent to pharmacy as well. Discussed physical exam findings. Advised supportive measures and signs/symptoms to go to the ER. Pt is appropriate for outpt treatment and f/u. Differential Diagnosis Differential diagnosis: Likely abscess of skin or subcutaneous tissue, cellulitis, eczema, insect bites, contact dermatitis and other (Vaginal yeast infection, STI, bacterial vaginosis) Critical Care Time Critical Care Time Critical Care Time: No Discharge Plan Discharge Clinical Impression: Vaginal yeast infection Insect bites Qualifiers: Encounter type: initial encounter Site of insect bite: unspecified site Qualified Code(s): W57.XXXA - Bitten or stung by nonvenomous insect and other nonvenomous arthropods, initial encounter Patient Disposition: Home Condition: Stable Instructions: Insect Bite or Sting (ED) Additional Instructions: Use the triamcinolone cream as directed. Apply only to the affected area, do not use longer than 2 weeks. Avoid scratching the insect bites as the will increase the risk of infection. You may use calamine lotion, camphor, Benadryl cream as needed for itchiness symptoms. You may also take Zyrtec or Claritin as needed for allergy or itchiness symptoms. Follow instructions on the bottle. Follow-up PCP in 3-5 days. If you develop any worsening redness, swelling, discharge, fevers, breathing problems, or any other concerns please go to the ER immediately. Patient Language: [place] Island[place] Prescriptions: New triamcinolone acetonide 0.1 % cream 1 applic topical BID 7 Days Qty: 15 0RF fluconazole 150 mg tablet 150 mg PO Q72H Qty: 2 0RF Rx Instructions: May repeat dose in 72 hours if symptoms persist. Follow-up/Referrals: PHYSICIAN NOT ON STAFF,NONSTAFF [Primary Care Provider] Time of Disposition: 15:13
== END 2025-04-17 15:18 | disposition home or self-care (01) ==
DX: B37.31 Acute candidiasis of vulva and vagina (principal); S20.469A Insect bite (nonvenomous) of unspecified back wall of thorax, initial encounter; S70.362A Insect bite (nonvenomous), left thigh, initial encounter; S70.361A Insect bite (nonvenomous), right thigh, initial encounter; S10.96XA Insect bite of unspecified part of neck, initial encounter; W57.XXXA Bitten or stung by nonvenomous insect and other nonvenomous arthropods, initial encounter; Z87.891 Personal history of nicotine dependence
CPT/HCPCS: 99213; G0463

== ENCOUNTER 2025-05-30 12:43 | Emergency (ER) | payer BC, SELFPAY ==
[2025-05-30 12:53] VITALS: BP 146/79; PULSE 65; RESP 20; TEMP 36.9; O2SAT 100
[2025-05-30 13:19] LABS: EDSTREPNEGPOS1 Negative (Negative)
--- NOTE | 2025-05-30 13:43 | ED.SKABFB ---
HPI - Skin/Abscess/Foreign Bdy General Chief complaint: Skin/Abscess/Foreign Body Stated complaint: Mouth Sore Time Seen by Provider: 05/30/25 13:05 Source: patient and RN notes reviewed Mode of arrival: ambulatory Limitations: no limitations History of Present Illness HPI narrative: 34-year-old female presents to the [facility] complaining mouth sores in started this morning. Patient reports sores in the right side of her cheek with a sore throat sores on the top of her mouth. Patient reports a history of fever blisters. Is prescribed acyclovir as needed for these flare ups. Patient says she has been under lot of stress lately, her child is having surgery tomorrow. Patient denies any fevers, body aches, chills, nausea, vomiting, diarrhea, difficulty clearing secretions, any other upper respiratory symptoms, cough, chest pain, difficulty breathing, or any other symptoms. Related Data Allergies Allergy/AdvReac Type Severity Reaction Status Date / Time Penicillins Allergy Unknown Anaphylaxis Verified 05/30/25 12:51 RED ONION Allergy Unknown ITCHY Uncoded 09/20/24 16:15 THROAT Review of Systems Review of Systems: CONSTITUTIONAL: Denies fever, chills, or sweats. EYES: Denies visual changes, redness, or discharge. ENT: Denies rhinorrhea, congestion,or otalgia. Positive for sore throat. MOUTH: Positive for sores. CARDIOVASCULAR: Denies chest pain, palpitations, or edema. RESPIRATORY: Denies cough or dyspnea. GASTROINTESTINAL: Denies abdominal pain, nausea, vomiting, or diarrhea. GENITOURINARY: Denies dysuria or hematuria. SKIN: Denies rash or itching. MUSCULOSKELETAL: Denies back pain, joint pain, or myalgia. NEUROLOGIC: Denies headache, numbness, or weakness. PSYCHIATRIC: Denies anxiety or depression. All other systems reviewed are negative, except as documented in HPI. PMFSH Social History Social History Smoking status: Former smoker Alcohol intake: never Comments At the time of my signature, I reviewed and agree with the nursing past medical, surgical, social, and family history. There is no relevant family history pertinent to the patient complaint. Exam Narrative: GENERAL: This is a well-nourished, well-developed adult, in no apparent distress. They are non ill-appearing, nontoxic appearing. HEAD: normocephalic, atraumatic. EYES: Sclera clear/white. Conjunctiva normal. Vision is grossly intact. Extraocular movements intact EARS: External ears normal, auditory canals clear and without drainage, TMs normal without perforation. Hearing grossly intact. NOSE: External nose normal with no obvious nasal discharge, nasal turbinates without redness, no rhinorrhea. THROAT: Mucous membranes moist, posterior pharynx erythematous. Uvula midline. No exudate. OROPHARYNX: Erythematous small circular groups vesicular ulcerations to the right buccal surface, soft palate and pharynx. No tooth decay. Tongue is midline. NECK: Neck supple, non-tender without lymphadenopathy, masses or thyromegaly. CARDIOVASCULAR: Regular rate and rhythm without murmurs, gallops, or rubs. RESPIRATORY: Clear to auscultation. Breath sounds equal bilaterally. No wheezes, rales, or rhonchi. SKIN: warm, Dry, intact with no suspicious lesions or rash, good texture and turgor. NEURO: awake, alert, and oriented to person, place and time. There were no obvious focal neurologic abnormalities. EXTREMITIES: No joint tenderness, effusion, or edema noted. BACK: Nontender without deformity. Course Course Emergency Course: Portions of this record may have been created with voice recognition software Level of Care: Express Care Visit Vital Signs Vital signs: Vital Signs Temperature 98.4 F 05/30/25 12:53 Pulse Rate 65 05/30/25 12:53 Respiratory Rate 20 05/30/25 12:53 Blood Pressure 146/79 H 05/30/25 12:53 Pulse Oximetry 100 05/30/25 12:53 Temperature 98.4 F 05/30/25 12:53 Pulse Rate 65 05/30/25 12:53 Respiratory Rate 20 05/30/25 12:53 Blood Pressure 146/79 H 05/30/25 12:53 Pulse Oximetry 100 05/30/25 12:53 Reviewed MDM - Skin/Abscess/Foreign Bdy MDM Narrative Medical decision making narrative: Rapid strep negative. Throat culture is pending. Symptoms clinically consistent with herpes likely an oralabial infection. Patient has a history of fever blisters offered testing for herpes she declined since she already knows she has a history of fever blisters and is aware that is caused by the herpes virus. Patient takes valacyclovir, she is currently on 500 mg twice a day for 3 days will send a prescription for 1000 mg twice a day for a week. Daughter stop taking her current valacyclovir medication and take this course instead. Discussed physical exam findings. Advised supportive measures and signs/symptoms to go to the ER. Pt is appropriate for outpt treatment and f/u. Differential Diagnosis Differential diagnosis: Likely other (Gingivostomatitis, herpes orolabial infection, herpangina, [id number], pharyngitis) Lab Data Attestation: I reviewed the patient's lab results. Labs: Lab Results 05/30/25 Range/Units 13:16 POC Grp A Strep Screen Negative (Negative) Critical Care Time Critical Care Time Critical Care Time: No Discharge Plan Discharge Clinical Impression: Herpes Patient Disposition: Home Condition: Stable Instructions: Oral Herpes Infection (ED) Additional Instructions: Take valacyclovir as directed. Your rapid strep is negative. A throat culture is pending if it is positive for strep you will be contacted start antibiotics. It is likely a herpes flare up. Tylenol or Motrin as needed for pain or fevers. Follow instructions on the bottle. Salt water gargle rinses and spit the help with the sore throat. Follow-up with PCP in 3-5 days. Patient Language: Hebrew Prescriptions: New valacyclovir 500 mg tablet 1,000 mg PO Q12H 7 Days Qty: 28 0RF Follow-up/Referrals: Kaiden,MD Gasper [Primary Care Provider, Unknown] Time of Disposition: 13:18
== END 2025-05-30 13:26 | disposition home or self-care (01) ==
PROVIDERS: PCP Internal Medicine
DX: B00.9 Herpesviral infection, unspecified (principal); Z87.891 Personal history of nicotine dependence
CPT/HCPCS: 87081; 87880; 99213; G0463